=== PATIENT | female | born 1950 | race Caucasian/White ===

== ENCOUNTER 2016-04-22 10:08 | Outpatient (CLI) | payer MEDICARE, OTHER | END 2016-04-22 10:09 | disposition home or self-care (01) | DX: G47.33 Obstructive sleep apnea (adult) (pediatric) (principal); G47.23 Circadian rhythm sleep disorder, irregular sleep wake type | CPT/HCPCS: 99214; G0463 ==

== ENCOUNTER 2016-07-05 08:35 | Outpatient (CLI) | payer MEDICARE, OTHER | END 2016-07-05 08:36 | disposition home or self-care (01) | DX: G47.33 Obstructive sleep apnea (adult) (pediatric) (principal); G47.00 Insomnia, unspecified | CPT/HCPCS: 99214; G0463 ==

== ENCOUNTER 2016-09-06 09:46 | Outpatient (CLI) | payer MEDICARE, OTHER | END 2016-09-06 09:47 | disposition home or self-care (01) | LOC: SC 09:46 | PROVIDERS: ATTEND Nurse Practitioner Family | DX: G47.33 Obstructive sleep apnea (adult) (pediatric) (principal); G47.23 Circadian rhythm sleep disorder, irregular sleep wake type | CPT/HCPCS: 99214; G0463; 99212 ==

== ENCOUNTER 2016-11-08 09:58 | Outpatient (CLI) | payer MEDICARE, OTHER | END 2016-11-08 09:59 | disposition home or self-care (01) | LOC: SC 09:58 | PROVIDERS: ATTEND Nurse Practitioner Family | DX: G47.33 Obstructive sleep apnea (adult) (pediatric) (principal); G47.20 Circadian rhythm sleep disorder, unspecified type | CPT/HCPCS: 99214; G0463; 99212 ==

== ENCOUNTER 2017-05-30 10:48 | Outpatient (CLI) | payer MEDICARE, OTHER | END 2017-05-30 10:49 | disposition home or self-care (01) | LOC: SC 10:48 | PROVIDERS: ATTEND Nurse Practitioner Family | DX: G47.33 Obstructive sleep apnea (adult) (pediatric) (principal); R07.9 Chest pain, unspecified; G47.23 Circadian rhythm sleep disorder, irregular sleep wake type | CPT/HCPCS: 99214; G0463; 99212 ==

== ENCOUNTER 2017-08-23 08:35 | Outpatient (CLI) | payer MEDICARE, OTHER | END 2017-08-23 08:36 | disposition home or self-care (01) | LOC: SC 08:35 | PROVIDERS: ATTEND Nurse Practitioner Family | DX: G47.33 Obstructive sleep apnea (adult) (pediatric) (principal); G47.23 Circadian rhythm sleep disorder, irregular sleep wake type | CPT/HCPCS: 99214; G0463; 99212 ==

== ENCOUNTER 2017-11-15 09:33 | Outpatient (CLI) | payer MEDICARE, OTHER | END 2017-11-15 09:34 | disposition home or self-care (01) | LOC: SC 09:33 | PROVIDERS: ATTEND Nurse Practitioner Family | DX: G47.33 Obstructive sleep apnea (adult) (pediatric) (principal); G47.00 Insomnia, unspecified | CPT/HCPCS: 99214; G0463; 99212 ==

== ENCOUNTER 2018-03-13 08:16 | Outpatient (CLI) | payer MEDICARE, OTHER | END 2018-03-13 08:17 | disposition home or self-care (01) | LOC: SC 08:16 | PROVIDERS: ATTEND Nurse Practitioner Family | DX: G47.33 Obstructive sleep apnea (adult) (pediatric) (principal) | CPT/HCPCS: 99214; G0463; 99212 ==

== ENCOUNTER 2018-05-08 15:52 | Outpatient (CLI) | payer MEDICARE, OTHER | END 2018-05-08 15:53 | disposition home or self-care (01) | LOC: SC 15:52 | PROVIDERS: ATTEND Nurse Practitioner Family | DX: G47.33 Obstructive sleep apnea (adult) (pediatric) (principal) | CPT/HCPCS: 99214; G0463; 99212 ==

== ENCOUNTER 2018-05-27 15:38 | Outpatient (CLI) | payer MEDICARE, OTHER | END 2018-05-27 15:39 | disposition short-term general hospital (02) | LOC: EMS 15:38 | PROVIDERS: ATTEND Surgery | DX: R42 Dizziness and giddiness (principal); R11.0 Nausea; R53.1 Weakness; R47.81 Slurred speech; R25.2 Cramp and spasm; R47.01 Aphasia; M79.642 Pain in left hand; R53.83 Other fatigue | CPT/HCPCS: A0425; A0427; A0888 ==

== ENCOUNTER 2019-01-09 08:56 | Day surgery (SDC) | payer MEDICARE, OTHER ==
[~2019-01-09 08:56] MED LIST: CEFAZOLIN SODIUM IN 0.9 % NACL 2 GM/100 ML BAG IV ONE
[2019-01-09] MEDS ORDERED: MIDAZOLAM 2 MG/2 ML VIAL IVP ONE (08:57)
[2019-01-09] MEDS ORDERED: fentaNYL 100 MCG/2 ML VIAL IVP ONE (08:57)
[2019-01-09] MEDS ORDERED: PROPOFOL 200 MG/20 ML VIAL IVP ONE (08:57)
[2019-01-09] MEDS ORDERED: LACTATED RINGERS 1,000 ML IV ONE (09:00)
--- NOTE | 2019-01-09 11:08 | ANESTHESIA ---
Pre-Anesthesia VS, & Labs - Diagnosis right mid back painful mass - Procedure excision of right lateral mid back lipoma Vital Signs: Temp Pulse Resp BP Pulse Ox 36 C L 61 12 148/76 H 97 01/09/19 09:00 01/09/19 09:00 01/09/19 09:00 01/09/19 09:00 01/09/19 09:00 Height 4 ft 11 in Weight (kg) 101.3 kg Body Mass Index 51.7 - NPO >8 hours - Is Patient ?: No Home Medications and Allergies Home Medications: Ambulatory Orders Acyclovir [Zovirax] 1 applic TP ONCE PRN 11/17/18 Aspirin [Aspirin EC] 81 mg PO DAILY 11/17/18 Atorvastatin Calcium 40 mg PO BID 11/17/18 Benfotiamine B1 150 mg PO DAILY 11/17/18 Clobetasol Propionate/Emoll [Clobetasol Emollient 0.05% Crm] 1 applic TP ONCE PRN 11/17/18 Desonide 1 applic TP ONCE PRN 11/17/18 Escitalopram [Lexapro] 10 mg PO DAILY 11/17/18 Fluticasone [Flonase] 1 sprays LUCIA DAILY PRN 11/17/18 Hydrochlorothiazide 12.5 mg PO DAILY 11/17/18 Loratadine [Claritin] 10 mg PO DAILY PRN 11/17/18 Losartan Potassium 25 mg PO BID 11/17/18 Lysine [l-Lysine] 500 mg PO ONCE PRN 11/17/18 Magnesium Sulfate 100 mg PO QPM 11/17/18 Metronidazole [Metrocream] 1 applic TP ONCE PRN 11/17/18 Olopatadine HCl [Patanol] 5 ml OP ONCE PRN 11/17/18 Ondansetron HCl [Zofran] 4 mg PO ONCE PRN 11/17/18 Oxybutynin [Ditropan] 5 mg PO QPM 11/17/18 Pimecrolimus [Elidel] 1 applic TP ONCE PRN 11/17/18 Temazepam [Restoril] 7.5 mg PO ONCE PRN 11/17/18 Mupirocin 1 gm TP PRN PRN 01/09/19 Nitrofurantoin [Macrobid] 100 mg PO BID 01/09/19 metroNIDAZOLE [Metronidazole] 250 mg PO BID 01/09/19 Allopurinol 100 mg PO DAILY 12/18/13 Cholecalciferol (Vitamin D3) [Vitamin D] 1,000 unit PO DAILY 12/18/13 Indomethacin 25 mg PO DAILY PRN 12/18/13 Levothyroxine [Synthroid] 75 mcg PO DAILY 12/18/13 Diazepam [Valium] 10 mg ORAL DAILY PRN 12/25/13 Acyclovir [Zovirax] 1 applic TP ONCE PRN 11/17/18 Aspirin [Aspirin EC] 81 mg PO DAILY 11/17/18 Atorvastatin Calcium 40 mg PO BID 11/17/18 Benfotiamine B1 150 mg PO DAILY 11/17/18 Clobetasol Propionate/Emoll [Clobetasol Emollient 0.05% Crm] 1 applic TP ONCE PRN 11/17/18 Desonide 1 applic TP ONCE PRN 11/17/18 Escitalopram [Lexapro] 10 mg PO DAILY 11/17/18 Fluticasone [Flonase] 1 sprays LUCIA DAILY PRN 11/17/18 Hydrochlorothiazide 12.5 mg PO DAILY 11/17/18 Loratadine [Claritin] 10 mg PO DAILY PRN 11/17/18 Losartan Potassium 25 mg PO BID 11/17/18 Lysine [l-Lysine] 500 mg PO ONCE PRN 11/17/18 Magnesium Sulfate 100 mg PO QPM 11/17/18 Metronidazole [Metrocream] 1 applic TP ONCE PRN 11/17/18 Olopatadine HCl [Patanol] 5 ml OP ONCE PRN 11/17/18 Ondansetron HCl [Zofran] 4 mg PO ONCE PRN 11/17/18 Oxybutynin [Ditropan] 5 mg PO QPM 11/17/18 Pimecrolimus [Elidel] 1 applic TP ONCE PRN 11/17/18 Temazepam [Restoril] 7.5 mg PO ONCE PRN 11/17/18 Mupirocin 1 gm TP PRN PRN 01/09/19 Nitrofurantoin [Macrobid] 100 mg PO BID 01/09/19 metroNIDAZOLE [Metronidazole] 250 mg PO BID 01/09/19 Allergies/Adverse Reactions: Allergies Allergy/AdvReac Type Severity Reaction Status Date / Time pseudoephedrine Allergy Severe Anaphylaxis Verified 12/25/13 09:01 codeine Allergy Intermediate Nausea Verified 10/14/14 09:01 tetracycline [Tetracycline] Allergy Intermediate Hives Verified 12/25/13 09:01 ciprofloxacin [From Cipro] AdvReac due to Verified 11/17/18 13:39 achilles tendon levofloxacin [From Levaquin] AdvReac due to Verified 11/17/18 13:39 achilles tendon lisinopril AdvReac Respiratory Verified 01/09/19 11:08 Anes History & Medical History - Anesthetic History Anesthesia Complications: reports: No previous complications - Medical History Cardiovascular: reports: Congestive heart failure, Hypertension, High cholesterol, Arrhythmia, Other (pacemaker) Pulmonary: reports: Sleep apnea, CPAP use (uses every night) Gastrointestinal: reports: Colon polyps, Chronic constipation Urinary: reports: Incontinence, Chronic bladder infection, Frequency, Kidney stones Neuro: reports: TIA, Other (Left carotid artery disease) Musculoskeletal: reports: Osteoarthritis, Fibromyalgia, Osteoporosis, Gout, Fatigue, Chronic back pain, Other Endocrine/Autoimmune: reports: None, HyPOthyroidism Blood Disorders: reports: None Skin: reports: Eczema Smoking Status: Never smoker Psychosocial: reports: Anxiety - Surgical History General: Colonoscopy Eyes Ears Nose Throat (EENT): Cataracts, Other Cardiothoracic: Pacemaker Urologic: Bladder surgery Gynecologic: 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, Oophrectomy, Breast reduction, Other Orthopedic: Carpal Tunnel surgery, Spine surgery Exam General: Alert, Oriented x3, Cooperative, No acute distress Dental: WNL Mouth Openin Fingerbreadth Neck Mobility: Normal Mallampati classification: II Thyromental Distance: greater than 6 cm Respiratory: Lungs clear, Normal breath sounds, No respiratory distress, No accessory muscle use Cardiovascular: Regular rate, Normal S1, Normal S2, No murmurs Mental/Cognitive Status: Alert/Oriented X3, Normal for patient Plan Anesthesia Type: MAC Consent for Procedure(s) Verified and Reviewed: Yes Code Status: Attempt Resuscitation ASA classification: 3-Severe systemic disease Is this case an emergency?: No
[2019-01-09] MEDS ORDERED: BUPIVACAINE 0.5%-EPI 1:200000 PF 30 ML VIAL ONE (11:13)
[2019-01-09] MEDS ORDERED: LIDOCAINE-MPF 1% 30 ML VIAL ONE (11:14)
[2019-01-09] MEDS ORDERED: HYDROmorphone 0.5 MG/0.5 ML SYRINGE IVP PRN (12:51)
[2019-01-09] MEDS ORDERED: ONDANSETRON 4 MG/2 ML VIAL IVP PRN (12:51)
[2019-01-09] MEDS ORDERED: oxyCODONE 5 MG TABLET PO PRN (12:51)
--- NOTE | 2019-01-09 13:12 | OPERATIVE REPORT ---
Operative Report - General Planned Procedure: Excision of large, painful, recurrent, soft tissue mass Pre-Op Diagnosis: Recurrent soft tissue mass Procedure Performed: Wide local excision of large, painful, recurrent, soft tissue mass Post Op Diagnosis: Same - Procedure Note Primary Surgeon: Galdino Anesthesia Provider: YOLI Arzola; YOLI Mortensen Anesthesia Technique: Local, MAC Pathology: Mass marked for orientation and submitted to pathology Estimated Blood Loss (mL): 50 Urine Output (mL): 75 Findings: 10 x 15 cm mass in the right mid back Complications: None apparent - Other Other Information/Narrative: After obtaining informed consent, the patient is brought to the operating room and the placed in the left lateral decubitus position on the operating table. Following sedation with monitored anesthesia care, appropriate padding of all bony prominences, and placement of appropriate monitors, the right flank was prepped and draped in the standard surgical fashion. A timeout was held per scope protocol. All elements of the surgical safety checklist were followed before, during, and after the procedure. Following infiltration with local anesthetic to create a field block, the existing incision which was long healed, was reopened and carried through the skin and subcutaneous tissue. The mass was then sharply dissected off of the skin and underlying muscle. The neurovascular pedicle was present in the center of the mass posteriorly and extended into the muscle. This was divided with cautery. The mass was marked for orientation and passed from the table. The wound was then checked for hemostasis and irrigated with warm saline solution. It was closed in layers with Vicryl and Nylon suture and a dry dressing applied. All sponge, needle, and instrument counts were correct at the conclusion of the case. The patient was allowed to awaken from anesthesia without difficulty and taken to the postanesthesia care unit in good condition.
[2019-01-09 13:35] VITALS: BP 130/62
== END 2019-01-09 08:57 | disposition home or self-care (01) ==
LOC: SDS 08:56
PROVIDERS: ATTEND Surgery
PROC: 0KBF0ZZ Excision of Right Trunk Muscle, Open Approach (ICD-10-PCS; principal; 2019-01-09 10:45)
DX: D17.1 Benign lipomatous neoplasm of skin and subcutaneous tissue of trunk (principal); I11.0 Hypertensive heart disease with heart failure; I50.9 Heart failure, unspecified; G47.30 Sleep apnea, unspecified; Z95.0 Presence of cardiac pacemaker; Z86.73 Personal history of transient ischemic attack (TIA), and cerebral infarction without residual deficits; Z79.899 Other long term (current) drug therapy; Z79.82 Long term (current) use of aspirin
CPT/HCPCS: 21933; J0690; J7120

== ENCOUNTER 2019-05-04 13:29 | Outpatient (CLI) | payer MEDICARE, OTHER | END 2019-05-04 13:30 | disposition critical access hospital (66) | LOC: EMS 13:29 | PROVIDERS: ATTEND Surgery | DX: R51 Headache (principal); R42 Dizziness and giddiness; R11.2 Nausea with vomiting, unspecified | CPT/HCPCS: A0425; A0429 ==

== ENCOUNTER 2019-05-04 13:46 | Observation (INO) | payer MEDICARE, OTHER ==
[2019-05-04] MEDS ORDERED: PROCHLORPERAZINE 10 MG/2 ML VIAL IVP STA (17:45)
[2019-05-04] MEDS ORDERED: diphenhydrAMINE INJ 50 MG/ML VIAL IVP STA (17:45)
[2019-05-04] MEDS ORDERED: SODIUM CHLORIDE 0.9% 1,000 ML IV ONE (17:45)
--- NOTE | 2019-05-04 17:50 | ED Physician Documentation ---
History of Present Illness - Stated complaint Stated Complaint: SHAIKH - Chief complaint Chief Complaint: Neuro - History obtained from History obtained from: Patient, Family, EMS - History of Present Illness Pain level max: >10 Pain level now: >10 Radiates to: none Improved by: nothing Worsened by: nothing Associated symptoms: visual changes, weakness - Additonal information Additional information: 69-year-old female with history of TIA, CHF, hypertension, pacemaker in place, who presented to the emergency department for evaluation because of 2 weeks of intermittent left-sided headache. She reported that around 1:30 PM, patient developed right visual changes with right arm motor weakness. EMS was called and the patient was brought in for further evaluation. Patient denies any fever, chills, neck pain, neck stiffness. Patient has a history of TIA withKnown carotid stenosis of greater than 50%. Patient has a history of migraine headaches as well but her current headache feels very different from her migraine headaches. She denies any vomiting. She has nausea.She has a decrease in appetite. Review of Systems Constitutional: reports: Myalgias. denies: Fever, Chills Eyes: reports: Loss of vision (intermittent). denies: Discharge, Irritation Ears: denies: Loss of hearing, Ear pain Nose: denies: Rhinorrhea / runny nose Throat: denies: Dental pain / toothache Cardiac: denies: Chest pain / pressure Respiratory: denies: Dyspnea, Cough GI: denies: Abdominal Pain Skin: denies: Rash Musculoskeletal: reports: Back pain (chronic). denies: Neck pain, Extremity pain, Joint pain, Extremity swelling Neurologic: reports: Focal weakness (right arm weakness), Difficulty speaking, Confused, Headache, Other (slurred speech) PD PAST MEDICAL HISTORY - Past Medical History Past Medical History: Yes Cardiovascular: Congestive heart failure, Hypertension, High cholesterol, Arrhythmia, Other Respiratory: Sleep apnea, CPAP use Neuro: TIA, Other Endocrine/Autoimmune: None, HyPOthyroidism GI: Colon polyps, Chronic constipation : Incontinence, Chronic bladder infection, Frequency, Kidney stones HEENT: Chronic vision loss, Chronic sinusitis Psych: Anxiety, Claustrophobia Musculoskeletal: Osteoarthritis, Fibromyalgia, Osteoporosis, Gout, Fatigue, Chronic back pain, Other Derm: Eczema - Past Surgical History Past Surgical History: Yes General: Colonoscopy Ortho: Carpal Tunnel surgery, 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: 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, Oophrectomy, Breast reduction, Other Cardiovascular: Pacemaker HEENT: Cataracts, Other - Present Medications Home Medications: Ambulatory Orders Medication Instructions Recorded Confirmed Cholecalciferol (Vitamin D3) 1,000 unit PO DAILY 12/18/13 11/17/18 [Vitamin D] Indomethacin 25 mg PO DAILY PRN 12/18/13 11/17/18 Levothyroxine [Synthroid] 75 mcg PO DAILY 12/18/13 01/09/19 allopurinoL [Allopurinol] 100 mg PO DAILY 12/18/13 11/17/18 Diazepam [Valium] 10 mg ORAL DAILY PRN 12/25/13 11/17/18 Aspirin [Aspirin EC] 81 mg PO DAILY 11/17/18 11/17/18 Atorvastatin Calcium 40 mg PO BID 11/17/18 11/17/18 Benfotiamine B1 150 mg PO DAILY 11/17/18 01/09/19 Clobetasol Propionate/Emoll 1 applic TP ONCE PRN 11/17/18 11/17/18 [Clobetasol Emollient 0.05% Crm] Desonide 1 applic TP ONCE PRN 11/17/18 11/17/18 Escitalopram [Lexapro] 10 mg PO DAILY 11/17/18 11/17/18 Fluticasone [Flonase] 1 sprays LUCIA DAILY PRN 11/17/18 11/17/18 Hydrochlorothiazide 12.5 mg PO DAILY 11/17/18 11/17/18 Loratadine [Claritin] 10 mg PO DAILY PRN 11/17/18 11/17/18 Losartan Potassium 25 mg PO BID 11/17/18 11/17/18 Lysine [l-Lysine] 500 mg PO ONCE PRN 11/17/18 11/17/18 Magnesium Sulfate 100 mg PO QPM 11/17/18 11/17/18 Metronidazole [Metrocream] 1 applic TP ONCE PRN 11/17/18 11/17/18 Olopatadine HCl [Patanol] 5 ml OP ONCE PRN 11/17/18 11/17/18 Oxybutynin [Ditropan] 5 mg PO QPM 11/17/18 11/17/18 Pimecrolimus [Elidel] 1 applic TP ONCE PRN 11/17/18 11/17/18 Temazepam [Restoril] 7.5 mg PO ONCE PRN 11/17/18 11/17/18 Mupirocin 1 gm TP PRN PRN 01/09/19 01/09/19 Ondansetron Odt [Zofran] 4 mg TL Q6H PRN #10 tablet 01/09/19 Oxycodone HCl/Acetaminophen 1 each PO Q6HR PRN #20 tablet 01/09/19 [Oxycodone-Acetaminophen 5-325] - Allergies Allergies/Adverse Reactions: Allergies Allergy/AdvReac Type Severity Reaction Status Date / Time pseudoephedrine Allergy Severe Anaphylaxis Verified 05/04/19 13:53 codeine Allergy Intermediate Nausea Verified 05/04/19 13:53 tetracycline [Tetracycline] Allergy Intermediate Hives Verified 05/04/19 13:53 ciprofloxacin [From Cipro] AdvReac due to Verified 05/04/19 13:53 achilles tendon levofloxacin [From Levaquin] AdvReac due to Verified 05/04/19 13:53 achilles tendon lisinopril AdvReac Respiratory Verified 05/04/19 13:53 - Social History Does the pt smoke?: No Smoking Status: Never smoker Does the pt drink ETOH?: No Does the pt have substance abuse?: No - Immunizations Immunizations are current?: Yes PD ED PE NORMAL - Vitals Vital signs reviewed: No - General General: Alert and oriented X 3 - HEENT HEENT: Atraumatic, PERRL, EOMI, Moist mucous membranes - Neck Neck: Supple, no meningeal sign - Cardiac Cardiac: Other (pacemaker noted on the left) - Respiratory Respiratory: No respiratory distress - Abdomen Abdomen: Normal bowel sounds - Derm Derm: Normal color - Extremities Extremities: No deformity - Neuro Neuro: Alert and oriented X 3, 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, No motor deficit, No sensory deficit, Normal speech Eye Opening: Spontaneous Motor: Obeys Commands Verbal: Oriented GCS Score: 15 Results - Vitals Vitals: Vital Signs - 24 hr 05/04/19 05/04/19 05/04/19 13:53 18:10 19:20 Temperature 36.5 C 37.0 C Heart Rate 60 100 73 Respiratory 14 16 23 Rate Blood Pressure 165/83 H 179/71 H 122/70 O2 Saturation 100 100 94 05/04/19 05/04/19 05/04/19 19:50 20:07 20:46 Temperature Heart Rate 62 59 L 60 Respiratory 16 16 16 Rate Blood Pressure 219/105 H 198/76 H 172/57 H O2 Saturation 99 100 99 05/04/19 05/04/19 20:55 21:22 Temperature 36.6 C Heart Rate 65 60 Respiratory 19 13 Rate Blood Pressure 172/57 H 191/85 H O2 Saturation 99 100 Oxygen O2 Source Nasal cannula Oxygen Flow Rate 3 - Labs Labs: Laboratory Tests 05/04/19 05/04/19 05/04/19 17:55 19:22 19:22 WBC 7.5 RBC 4.33 Hgb 12.8 Hct 40.0 MCV 92.4 MCH 29.6 MCHC 32.0 RDW 12.9 Plt Count 288 MPV 8.9 Neut # (Auto) 3.8 Lymph # (Auto) 2.6 [place] # (Auto) 0.5 Eos # (Auto) 0.6 Baso # (Auto) 0.0 Absolute Nucleated RBC 0.00 Nucleated RBC % 0.0 ESR Whole Blood INR 1.0 Sodium 140 Potassium 3.8 Chloride 105 Carbon Dioxide 27 Anion Gap 8.0 BUN 20 Creatinine 0.6 Estimated GFR (MDRD) 99 Glucose 98 Calcium 9.2 Total Bilirubin 0.6 AST 17 ALT 17 Alkaline Phosphatase 95 Troponin I High Sens B-Natriuretic Peptide Total Protein 6.7 Albumin 3.7 Globulin 3.0 Albumin/Globulin Ratio 1.2 05/04/19 05/04/19 05/04/19 19:22 19:22 19:22 WBC RBC Hgb Hct MCV MCH MCHC RDW Plt Count MPV Neut # (Auto) Lymph # (Auto) [place] # (Auto) Eos # (Auto) Baso # (Auto) Absolute Nucleated RBC Nucleated RBC % ESR 37 H Whole Blood INR Sodium Potassium Chloride Carbon Dioxide Anion Gap BUN Creatinine Estimated GFR (MDRD) Glucose Calcium Total Bilirubin AST ALT Alkaline Phosphatase Troponin I High Sens 3.4 B-Natriuretic Peptide 42 Total Protein Albumin Globulin Albumin/Globulin Ratio PD MEDICAL DECISION MAKING - ED course Complexity details: re-evaluated patient, d/w patient, d/w family ED course: EKG performed in 2036 shows atrial paced rhythm with a rate of 62, Borderline prolonged IL interval, normal QRS, normal QTC, nonspecific ST changes noted, poor R wave progression, no ST elevation or depression. 69-year-old female with history of hypertension, pacemaker in place, hyperlipidemia, history of carotid stenosis (diagnosed at [facility]) who presented to the emergency department for evaluation because of headache,Right eye vision changes, right arm weakness that has since resolved. Patient was noted to be hypertensive. Patient admitted that she has not been compliant with her blood pressure medication.She was treated with IV fluids, Benadryl Compazine initially for headache and given her history of migraine headaches, the headache improved but did not completely go away. Her headache started returning and she was noted to be severely hypertensive. Patient was given IV hydralazine with improvement of her headache.The patient remained hemodynamically stable. CT scan of the head did not show acute intracranial hemorrhage or other acute abnormality.EKG did not show ischemic changes. Troponin was negative. While in the emergency department, patient started hyperventilating and complaining of shortness of breath. Lungs were clear to auscultation. Oxygen saturation was within normal limits. She appeared to be somewhat anxious and tearful but was not in respiratory distress. She was given 0.5 mg of IV Ativan with improvement. With her neurological symptoms and her uncontrolled hypertension, Symptoms could be due to TIA or malignant hypertension. I have discussed the case with hospitalist, Dr. Richard. She has accepted patient for admission and further management. Departure - Departure Disposition: 65 Psych Hosp/Unit DC/Xfer Clinical Impression: Headache, Hypertension, Transient ischemic attack (TIA) Condition: Stable
--- NOTE | 2019-05-04 18:57 | CT Report ---
Reason: headache Procedure Date: 05/04/2019 Accession Number: [id number] / [id number] Procedure: CT - HEAD WO CPT Code: Final Report FULL RESULT: EXAM: CT HEAD EXAM DATE: 05/04/2019 06:20 PM. CLINICAL HISTORY: Headache. COMPARISON: None. TECHNIQUE: Multiaxial CT images were obtained from the foramen magnum to the vertex. Reformats: Sagittal and coronal. IV contrast: None. In accordance with CT protocol optimization, one or more of the following dose reduction techniques were utilized for this exam: automated exposure control, adjustment of mA and/or KV based on patient size, or use of iterative reconstructive technique. FINDINGS: Parenchyma: No intraparenchymal hemorrhage. No evidence of mass, midline shift, or CT findings of infarction. Jones-white differentiation is distinct. Extraaxial Spaces: Normal for age. No subdural or epidural collections identified. Ventricles: Normal in size and position. Sinuses and Orbits: Imaged paranasal sinuses, orbits, and mastoids show no significant abnormality. Bones: No evidence of fracture or calvarial defect. Other: None. IMPRESSION: No significant intracranial abnormality. RADIA
[2019-05-04 19:28] LABS: BASOPHILS % (AUTO) 0.3 %; EOSINOPHILS # (AUTO) 0.6 10^3/uL (0.0-0.7); EOSINOPHILS % (AUTO) 7.5 %; HGB - HEMOGLOBIN 12.8 g/dL (12.0-16.0); LYMPHOCYTES # (AUTO) 2.6 10^3/uL (1.5-3.5); LYMPHOCYTES % (AUTO) 34.1 %; MEAN CORPUSCULAR HEMOGLOBIN 29.6 pg (27.0-31.0); MEAN CORPUSCULAR VOLUME 92.4 fL (81.0-99.0); MEAN PLATELET VOLUME 8.9 fL (7.9-10.8); MONOCYTES # (AUTO) 0.5 10^3/uL (0.0-1.0); MONOCYTES % (AUTO) 6.9 %; NEUTROPHILS # (AUTO) 3.8 10^3/uL (1.5-6.6); NEUTROPHILS % (AUTO) 50.8 %; PLT - PLATELET COUNT 288 10^3/uL (130-450); RED BLOOD COUNT 4.33 10^6/uL (4.20-5.40); RED CELL DISTRIBUTION WIDTH 12.9 % (12.0-15.0); WHITE BLOOD COUNT 7.5 x10^3/uL (4.8-10.8)
[2019-05-04 19:41] LABS: ALBUMIN 3.7 g/dL (3.2-5.5); ALBUMIN/GLOBULIN RATIO 1.2 (1.0-2.2); BILIRUBIN,TOTAL 0.6 mg/dL (0.2-1.0); CALCIUM 9.2 mg/dL (8.5-10.3); CREATININE 0.6 mg/dL (0.4-1.0); TOTAL PROTEIN 6.7 g/dL (6.7-8.2)
[2019-05-04] MEDS ORDERED: ASPIRIN CHEW 81 MG TABLET PO STA (20:11)
[2019-05-04] MEDS ORDERED: hydrALAZINE INJ 20 MG/ML VIAL IVP STA (20:11)
[2019-05-04] MEDS ORDERED: MORPHINE 2 MG/ML CARPUJECT IVP STA (20:12)
[2019-05-04] MEDS ORDERED: LORazepam 2 MG/ML VIAL IVP STA (20:59)
[2019-05-04] MEDS ORDERED: FUROSEMIDE 40 MG/4 ML VIAL IVP STA (21:02)
[2019-05-04] MEDS ORDERED: ONDANSETRON ODT 4 MG TABLET TL PRN (21:11)
[2019-05-04] MEDS ORDERED: oxyCODONE 5 MG TABLET PO PRN (21:11)
[2019-05-04] MEDS ORDERED: ACETAMINOPHEN 325 MG TABLET PO PRN (21:11)
[2019-05-04] MEDS ORDERED: ONDANSETRON 4 MG/2 ML VIAL IVP PRN (21:11)
[2019-05-04] MEDS ORDERED: SODIUM CHLORIDE FLUSH 0.9% 10 ML SYRINGE IVP PRN (21:11)
[2019-05-04] MEDS ORDERED: ATORVASTATIN 40 MG TABLET PO SCH (21:14)
--- NOTE | 2019-05-04 21:15 | XRAY Report ---
Reason: weakness Procedure Date: 05/04/2019 Accession Number: [id number] / [id number] Procedure: XR - Chest 1 View X-Ray CPT Code: 50381 Final Report FULL RESULT: EXAM: CHEST RADIOGRAPHY EXAM DATE: 05/04/2019 08:50 PM. CLINICAL HISTORY: Weakness. COMPARISON: 06/21/2011 3:45 PM. TECHNIQUE: 1 view. FINDINGS: Lungs/Pleura: No focal opacities evident. No pleural effusion. No pneumothorax. Mediastinum: Within exam limitations, the cardiomediastinal contour is normal. Other: Pacemaker. IMPRESSION: No acute findings. RADIA
--- NOTE | 2019-05-04 21:20 | HISTORY & PHYSICAL EXAMINATION ---
Chief Complaint - Chief Complaint Chief Complaint: right arm weak, right eye vision dark, anxiety attack History of Present Illness - Admitted From Admitted From:: Home/ER - History Obtained From Records Reviewed: Aviva Martinez History obtained from: Dr. Olivia and patient Exam Limitations: none - History of Present Illness HPI Comment/Other: 69-year-old female whose risk factors for stroke include high blood pressure, hyperlipidemia, noncompliance with medication and already has a previous history of a TIA that comes in with sudden loss of vision in the right eye, and right arm weakness. Prior to this episode today, she has a had a 2-week history of intermittent left-sided headache. She has been noncompliant with her medications because she does not like taking blood pressure medications. She also feels like she just needs to lose weight. If she can lose the weight then she can get off a lot of her medications. Between 2018 and now she has lost 56 pounds. She denies fever, chills, use of recreational substances. She does have a history of migraine headaches but feels this is different. There is no aura. Then she developed the right arm weakness and right eye visual changes around 1:30 today. She has a previous admission for TIA to [facility] with the same loss of right eye vision, and at that time, a CT angiogram in May 2018 showed suspected occlusion of the distal right M1 segment just distal to the first M2 segmental branch takeoff. There is reconstitution of flow within the proximally occluded M2 segment branches via collaterals with slightly diminished perfusion suspected in the right hemisphere. She has greater than 50% stenosis in the right carotid terminus. High-grade stenosis at the origin of the hypoplastic right A1 segment anterior to the artery she is patent. No other hemodynamically significant stenosis in the great vessels of the neck. She was seen in the emergency room by Dr. Olivia. Temperature was 36.5, heart rate 60, respirations 14, blood pressure 165/83 and she was 100% saturated on room air. During her stay in the emergency room she was evaluated with a CT of the head. It was negative. Labs were normal. They were discussing discharge to home when the patient had a sudden onset of shortness of breath, hyperventilation that was felt to be compatible with a panic attack. She feels like she cannot go home. She also had a rise in blood pressure to 219/105. She was given an aspirin, Benadryl, Lasix, hydralazine, morphine and Lorazepam. She is now placed in observation for possible TIA. History - Past Medical History Cardiovascular: reports: Congestive heart failure (with left venticular hypertrophy seen on echo 2003. No reduced EF per her knowledge. Had diastolic HF 2011), Hypertension, High cholesterol, [facility]rhythmia [facility] with pacer placed. ?afib), Other (chronic venous insufficiency) Respiratory: reports: Sleep apnea (since 2007 diagnosis), CPAP use Neuro: reports: TIA (2012 and May 2018 with subsequent pacer placed), Migraines, Peripheral neuropathy (from spine 2012), Fainting (2007, 2012, 2014 while on a plane) Endocrine/Autoimmune: reports: HyPOthyroidism GI: reports: Colon polyps, Chronic constipation, Hemorrhoids : reports: Incontinence, Chronic bladder infection, Frequency, Kidney stones, Other HEENT: reports: Chronic vision loss, Chronic sinusitis, Other (vitrectomy left eye 2016 and right eye 2018) Psych: reports: Anxiety, Panic attacks, Claustrophobia Musculoskeletal: reports: Osteoarthritis (with knee injections in past 2015), Fibromyalgia (diagnosed 2000), Osteoporosis (2009), Gout (2007), Fatigue, Chronic back pain (of c spine with spinal stenosis diagnosed 2000 and moderate to severe by 2010), Other Derm: reports: Eczema, Other (lipomatous masses w Gen Surg consult starting July 2009) MRSA Hx?: No - Past Surgical History General: reports: Colonoscopy (09/15/10, 05/28/14), Other (adhesiolysis 1979, 1981, 1983, 1986) Ortho: reports: Carpal Tunnel surgery (right, 2012), Spine surgery (2011 la minectomy of L spine), Other (ankle implants 1994 and 1995 with removal of both 1999; gastrocnemius slide on both calves 2000) /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 father never known. 3 sisters and 2 brothers. One sister as complications of fibromyalgia and chronic pain, one sister w cancer, 2 brothers w DM, CAD/CABG and stroke, HTN, kidney disease, Hep C also present in siblings. 1 daughter and 1 son. Daughter w MS/lupus, chronic pain syndrome. Son w heart disease Living arrangement: At home Living Situation: With spouse/s.o. Social History Notes: She is from [place]. a man who is in the [employer], he was career. [place], left to do other duty stations. When he retired the came back to [facility]. She never smoked. Very rarely drank. No history of recreational substance abuse. They live in their own home in [place]. - Substance History Use: Uses substance without health or social issues: NONE - POLST Patient has POLST: No POLST Status: Full Code Meds/Allgy - Home Medications Home Medications: Ambulatory Orders Medication Instructions Recorded Confirmed Cholecalciferol (Vitamin D3) 1,000 unit PO DAILY 12/18/13 05/04/19 [Vitamin D] Indomethacin 25 mg PO DAILY PRN 12/18/13 05/04/19 Levothyroxine [Synthroid] 75 mcg PO DAILY 12/18/13 05/04/19 allopurinoL [Allopurinol] 100 mg PO DAILY 12/18/13 05/04/19 Diazepam [Valium] 10 mg ORAL DAILY PRN 12/25/13 05/04/19 Aspirin [Aspirin EC] 81 mg PO DAILY 11/17/18 05/04/19 Atorvastatin Calcium 40 mg PO BID 11/17/18 05/04/19 Benfotiamine B1 150 mg PO DAILY 11/17/18 05/04/19 Clobetasol Propionate/Emoll 1 applic TP ONCE PRN 11/17/18 05/04/19 [Clobetasol Emollient 0.05% Crm] Desonide 1 applic TP ONCE PRN 11/17/18 05/04/19 Escitalopram [Lexapro] 10 mg PO DAILY 11/17/18 05/04/19 Fluticasone [Flonase] 1 sprays LUCIA DAILY PRN 11/17/18 05/04/19 Hydrochlorothiazide 12.5 mg PO DAILY 11/17/18 05/04/19 Loratadine [Claritin] 10 mg PO DAILY PRN 11/17/18 05/04/19 Losartan Potassium 25 mg PO BID 11/17/18 05/04/19 Lysine [l-Lysine] 500 mg PO ONCE PRN 11/17/18 11/17/18 Magnesium Sulfate 100 mg PO QPM 11/17/18 05/04/19 Metronidazole [Metrocream] 1 applic TP ONCE PRN 11/17/18 05/04/19 Olopatadine HCl [Patanol] 5 ml OP ONCE PRN 11/17/18 05/04/19 Oxybutynin [Ditropan] 5 mg PO QPM 11/17/18 05/04/19 Pimecrolimus [Elidel] 1 applic TP ONCE PRN 11/17/18 05/04/19 Temazepam [Restoril] 7.5 mg PO ONCE PRN 11/17/18 05/04/19 Mupirocin 1 gm TP PRN PRN 01/09/19 05/04/19 Ondansetron Odt [Zofran] 4 mg TL Q6H PRN #10 tablet 01/09/19 05/04/19 Oxycodone HCl/Acetaminophen 1 each PO Q6HR PRN #20 tablet 01/09/19 05/04/19 [Oxycodone-Acetaminophen 5-325] - Allergies Allergies/Adverse Reactions: Allergies Allergy/AdvReac Type Severity Reaction Status Date / Time pseudoephedrine Allergy Severe Anaphylaxis Verified 05/04/19 13:53 codeine Allergy Intermediate Nausea Verified 05/04/19 13:53 tetracycline [Tetracycline] Allergy Intermediate Hives Verified 05/04/19 13:53 ciprofloxacin [From Cipro] AdvReac due to Verified 05/04/19 13:53 achilles tendon levofloxacin [From Levaquin] AdvReac due to Verified 05/04/19 13:53 achilles tendon lisinopril AdvReac Respiratory Verified 05/04/19 13:53 Review of Systems - Constitutional Constitutional: reports: Fatigue, Weight loss (Delivered 56 pound weight loss since 2018 and she tries to diet to control her medical problems) - Eyes Eyes: reports: Blurred vision, Vision loss, Other (all of these chronic but sudden loss in right eye today) - Ears, Nose & Throat Ears, Nose & Throat: reports: Hearing loss, Tinnitus, Nosebleeds, Nasal congestion, Hoarseness, Other (all of these chronic) - Cardiovascular Cariovascular: reports: Palpitations, Chest pain (rest or exertion), Edema (with chronic varicose veins), Other (chronic complaints) - Respiratory Respiratory: reports: Snoring, Apnea. denies: Cough, Sputum production, Wheezing - Gastrointestinal Gastrointestinal: reports: Constipation, Diarrhea, Nausea, Reflux/heartburn, Other (chronic problems) - Genitourinary Genitourinary: reports: Incontinence - Musculoskeletal Musculoskeletal: reports: Muscle pain, Back pain, Muscle aches, Gout, Joint pain - Neurological Neurological: reports: Numbness (chronic from old spinal stenosis) - Psychiatric Psychiatric: reports: Depression, Anxiety, Other (insomnia). denies: Suicidal, Delusions, Hallucinations - Hematologic/Lymphatic Hematologic/Lymphatic: reports: Bruising Prior Level of Functionality: Lives with chronic daily pain in her neck, back, legs. Feet are very numb. But she is still able to dress herself, feed herself. Does occasional light housework. Has been takes care of bills and finances. Does not use any durable medical equipment. Exam - Vital Signs Reviewed Vital Signs: Yes Vital Signs: Vital Signs x48h Temp Pulse Resp BP Pulse Ox 05/04/19 20:55 65 19 172/57 H 99 05/04/19 20:46 60 16 172/57 H 99 05/04/19 20:07 59 L 16 198/76 H 100 05/04/19 19:50 62 16 219/105 H 99 05/04/19 19:20 73 23 122/70 94 05/04/19 18:10 37.0 C 100 16 179/71 H 100 05/04/19 13:53 36.5 C 60 14 165/83 H 100 - Physical Exam General Appearance: positive: No acute distress, Alert, Other (4 foot 11 inch female who is 102.5 kg. is at the bedside. She is hungry and eating a sandwich and some Jell-O) Eyes Bilateral: positive: PERRL, EOMI ENT: positive: Pharynx nml Neck: positive: No JVD. negative: Stiff neck, Carotid bruit Respiratory: positive: Chest non-tender. negative: Wheezes, Rales, Rhonchi Cardiovascular: positive: Regular rate & rhythm, Systolic murmur. negative: Gallop/S4, Friction rub Peripheral Pulses: positive: 1+ Abdomen: positive: Non-tender, No organomegaly, Nml bowel sounds, No distention Skin: positive: Warm, Dry Extremities: positive: Non-tender, Full ROM, Pedal edema (Mild chronic venous stasis changes) Neurologic/Psychiatric: positive: Oriented x3, CN's nml (2-12), Motor nml. negative: Weakness, Facial droop, Slurred/abnml speech Reflexes: Bicep (R): 1+, Bicep (L): 1+, Knee (R): 1+, Knee (L): 1+ Babinski Reflex: Right: Down, Left: Down Conclusion/Plan - Problem List (1) Transient ischemic attack (TIA) Conclusion/Plan: In a patient is already had 2 previous TIAs. She has documented abnormal cer ebrovascular anatomy. She initially explains that she has carotid stenosis and I have carefully gone over anatomy to demonstrate that her vascular defect is actually in the distal arterial branches and not in the carotids. I have carefully explained to her that we can reduce risk of stroke but we cannot make her risk 0%. While a I laud her attempt at controlling blood pressure and cholesterol through diet and slowly successful weight loss, she also needs to take her blood pressure pills which she has been avoiding. Plan: Observation status Resume losartan in the morning and allow permissive hypertension up to 180 systolic Aspirin 325 in the emergency room, 81 mg tomorrow Atorvastatin 80 mg tonight and may need 80 mg for a few more weeks and then she can go back on her usual 40 mg Cannot do MRI because of pacer CT angiogram of head and neck Echocardiogram Get old records from [facility] to see exactly why she got a pacemaker (2) Hypertension Conclusion/Plan: As stated above. Allow permissive hypertension up to 180 systolic for the first 24 to 48 hours. Gradually reduce blood pressure over the next 3 days. Will resume losartan in the morning. Qualifiers: Hypertension type: essential hypertension Qualified Code(s): I10 - Essential (primary) hypertension (3) Noncompliance with medication regimen Conclusion/Plan: After explaining anatomy, what leads to increased risk of stroke, she is amenable to resuming her medications. (4) Hyperlipidemia Conclusion/Plan: check fasting lipids in am. Qualifiers: Hyperlipidemia type: pure hypercholesterolemia Qualified Code(s): E78.00 - Pure hypercholesterolemia, unspecified; E78.0 - Pure hypercholesterolemia (5) Hypothyroid Conclusion/Plan: check tsh in am. Qualifiers: Hypothyroidism type: postoperative Qualified Code(s): E89.0 - Postprocedural hypothyroidism - Lab Results Lab results reviewed: Yes Fish Bones: 05/04/19 19:22 05/04/19 19:22 Other Lab Results: Troponin 3.4 and BNP 42. - Diagnostic Imaging Results Diagnostic Imaging Results: positive: Final report reviewed - EKG Results EKG Interpreted Independently: No EKG Comparison: Unchanged from prior EKG Core Measures - Anticipated LOS I expect patient to be DC'd or transferred within 96 hours.: Yes - DVT/VTE - Prophylaxis VTE/DVT Device ordered at admit?: Yes
[2019-05-04] MEDS ORDERED: IOVERSOL 320 100 ML VIAL IVP ONE ×2 (21:23→22:26)
--- NOTE | 2019-05-04 22:45 | CT Report ---
Reason: right arm weak Procedure Date: 05/04/2019 Accession Number: [id number] / [id number] Procedure: CT - ANGIO NECK W CPT Code: Final Report FULL RESULT: EXAM: CT ANGIOGRAM NECK EXAM DATE: 05/04/2019 10:01 PM. CLINICAL HISTORY: Right arm weak. COMPARISON: HEAD W/O 05/04/2019 6:18 PM HEAD ANGIO 05/04/2019 10:01 PM. TECHNIQUE: Routine axial helical imaging was performed from the skull base through the aortic arch. Reconstructions: Routine multiplanar 3D MIP reconstructions. IV Contrast: OPTIRAY 320. Evaluation of arterial stenosis is based on a NASCET method of measurement. In accordance with CT protocol optimization, one or more of the following dose reduction techniques were utilized for this exam: automated exposure control, adjustment of mA and/or KV based on patient size, or use of iterative reconstructive technique. FINDINGS: Aortic arch, origins of the great vessels, brachiocephalic in both subclavian arteries are patent. Right Carotid: Common carotid is patent to the bifurcation. Mild calcification of the carotid bulb without stenosis. Left Carotid: Common carotid is patent at the bifurcation. Moderate calcification of the carotid bulb with roughly 50% stenosis at the left ICA origin. Vertebrals: Vertebral arteries are patent in the neck. Limited evaluation of the V1 and proximal V2 segments by beam hardening artifact from the patient's shoulders, cardiac pacemaker, contrast reflux from the left arm injection and multiple disk prostheses in the lower cervical spine. Intracranial Circulation: See CT angiogram head. Other: Prosthetic disks at C5-C6 and C6-C7. Cardiac pacemaker. Lung apices appear clear. IMPRESSION: 1. Mild calcification of the right carotid bulb without stenosis. 2. Roughly 50% stenosis left ICA origin. 3.Vertebral arteries are patent in the neck. Limited evaluation of the V1 and proximal V2 segments by beam hardening artifact from the patient's shoulders, cardiac pacemaker, contrast reflux from the left arm injection and multiple disk prostheses in the lower cervical spine. RADIA
--- NOTE | 2019-05-04 22:54 | CT Report ---
Reason: right arm weak Procedure Date: 05/04/2019 Accession Number: [id number] / [id number] Procedure: CT - ANGIO HEAD W/WO CPT Code: Final Report FULL RESULT: EXAM: CT ANGIOGRAM HEAD. CT SCAN OF THE HEAD WITHOUT AND WITH CONTRAST. EXAM DATE: 05/04/2019 10:01 PM CLINICAL HISTORY: Right arm weak. Headache. COMPARISON: CT HEAD W/O 05/04/2019 6:18 PM. TECHNIQUE: - CT Scan Head: Using a multidetector scanner, axial images were acquired from the foramen magnum to the skull vertex prior to and following contrast administration. - CT Angiogram: Using a multidetector scanner, high-resolution axial images were acquired from the skull base through vertex following rapid infusion of intravenous contrast. Reformats: Multiplanar MIP reformats were reconstructed. NASCET criteria used for stenosis measurement. IV Contrast: OPTIRAY 320-80 mL. In accordance with CT protocol optimization, one or more of the following dose reduction techniques were utilized for this exam: automated exposure control, adjustment of mA and/or KV based on patient size, or use of iterative reconstructive technique. FINDINGS: NON-CONTRAST HEAD: Parenchyma: No intraparenchymal hemorrhage. No evidence of mass, midline shift, or CT findings of infarction. Jones-white differentiation is distinct. Extraaxial Spaces: Normal for age. No subdural or epidural collections identified. Ventricles: Normal in size and position. Sinuses and orbits: Imaged paranasal sinuses, orbits, and mastoids show no significant abnormality. Bones: No evidence of fracture or calvarial defect. Other: None. POST-CONTRAST HEAD: No abnormal enhancement. CT ANGIOGRAM HEAD: Anterior circulation: The petrous, cavernous, and supraclinoid segments of both internal carotid arteries are patent. There is atherosclerotic calcification in the carotid siphons bilaterally. No evidence of significant stenosis. The middle cerebral and anterior regarding distributions are patent bilaterally. No evidence of large vessel occlusion. Mild irregularity in the M1 segment of the left MCA suggests mild atherosclerotic disease. There is no significant stenosis. The A1 segment of the right KRYSTAL is moderately hypoplastic. A normal variant. A patent anterior communicating artery is visualized. Posterior circulation: Both vertebral arteries join to form the basilar artery. The distal vertebral and basilar arteries are patent and normal in caliber. The posterior cerebral arteries and remainder of the posterior circulation are patent and appear unremarkable. No aneurysm or AVM is identified. Dural venous sinuses are patent. IMPRESSION: CT Head: No acute intracranial abnormality. Specifically, no evidence of acute infarct, hemorrhage, or mass lesion. No abnormal enhancement. CTA Head: 1. No evidence of large vessel occlusion. 2. There is mild atherosclerotic disease involving bilateral carotid siphons and the left MCA M1 segment. However, there is no evidence of significant stenosis. 3. No aneurysm is identified. 4. Dural venous sinuses are patent. RADIA
[2019-05-04] MEDS ORDERED: diazePAM 5 MG TABLET PO PRN (23:51)
[2019-05-05] MEDS: SODIUM CHLORIDE FLUSH 0.9% 10 ML SYRINGE IVP SCH ×2 (01:16→08:45)
[2019-05-05] MEDS: oxyCODONE 5 MG TABLET PO PRN ×2 (05:42→10:54)
[2019-05-05 06:36] LABS: CHOL/HDL RATIO 5.6 (<4.4); CHOLESTEROL 217 mg/dL; HDL CHOLESTEROL 39 mg/dL; LDL CHOLESTEROL,CALCULATED 148 mg/dL; LDL/HDL RATIO 3.8 (<4.4); VLDL CHOLESTEROL 30 mg/dL
[2019-05-05] MEDS ORDERED: LOSARTAN 50 MG TABLET PO SCH (09:00)
[2019-05-05] MEDS ORDERED: ASPIRIN CHEW 81 MG TABLET PO SCH (09:00)
--- NOTE | 2019-05-05 12:59 | Discharge Plan ---
Discharge Plan Problem Reviewed?: Yes Disposition: Home, Self Care Condition: Good Prescriptions: Clopidogrel [Plavix] 75 mg PO DAILY #21 tablet Oxybutynin [Oxytrol For Women] 1 each TD Q3D #30 patch.td.4 Rosuvastatin Calcium [Crestor] 40 mg PO DAILY #30 tablet Diet: Cardiac Activity Restrictions: Activity as Tolerated Shower Restrictions: No Driving Restrictions: No Weight Bearing: Full Weight Instruction Topics: Clopidogrel Bisulfate Oral tablet Health Concerns: TIA (Transient ischemic attack) Uncontrolled blood pressure Hyperlipidemia Plan of Treatment: Continue your exercise program and stay active each day Continue the high dose statin, Atorvastain 80 mg, Aspirin 81 mg, and Plavix 75 mg (to be taken only for the next 21 days) Continue to use your CPAP See your PCP within the next 1 week, who may request a neurology consult Care Goals: Prevent a recurrence of this event Prevent hospital stays and ED visits Be well in order to travel to [place] in May Assessment: You were admitted to the hospital for a TIA work up, which is the final concluding diagnosis since undergoing the brain imaging and an echocardiogram with preliminary results of negative bubble study (no PFO), no thrombus, and nothing alarming found on brain imaging. Along with the baby aspirin (81 mg), you will need to take Plavix for the next 21 days, then stop. You will need to see your PCP within one week. If the vision loss persists, you may benefit from seeing an budget manager who specializes in neurologic disorders. You are medically stable and higher dose of statin is crucial in further protection from any more TIA events. Your lipid panel will need to be followed. Your thyroid level was normal, and your fasting glucose was also not concerning. No Smoking: If you smoke, Please STOP! Call for help. Follow-up with: MORIS LANGLEY [Primary Care Provider] -
--- NOTE | 2019-05-05 13:20 | DISCHARGE SUMMARY ---
Discharge Summary Admit Date: 05/04/19 Discharge Date: 05/05/19 Discharging Provider: TIFFANY Woo Primary Care Provider: Guillermina Calderón Code Status: Attempt Resuscitation Condition at Discharge: Good Discharge Disposition: 01 Home, Self Care - DIAGNOSES Admission Diagnoses: TIA (transient ischemic attack) Hypertension Noncompliance Pure hypercholesterolemia, unspecified Postprocedural hypothyroidism Discharge Diagnoses with Status of Each Condition: TIA (transient ischemic attack)-Recurrent, final diagnosis for this hospital stay, stable, slight vision loss residual Hypertension-Chronic, stable, patient encouraged to resume her previously prescribed medications Noncompliance-Chronic, patient has the support of her , agreed to be more compliant Pure hypercholesterolemia, unspecified- total cholesterol, LDL elevated, increased home statin to full dose Postprocedural hypothyroidism-No changes in usual Synthroid dose, stable Carotid artery stenosis-Known history, no acute changes noted on imaging Left ventricular hypertrophy-Chronic, patient encouraged to resume all home meds to prevent worsening of LVH Diastolic dysfunction-Chronic, stable Sick sinus syndrome-Chronic, pacemaker was tracked with rates in the 60's on telemetry, stable Pacemaker-Chronic, stable EUNICE on CPAP-Chronic, stable Depression-Chronic, stable Urinary incontinence-Chronic, sent a patch to try rather than pill form for less chances of dry mouth, stable Fibromyalgia-Chronic, stable Gout-Chronic, stable Spinal stenosis-Chronic, stable Arthritis-Chronic, stable Osteoporosis-Chronic, stable Eczema-Chronic, stable Migraine-Chronic, stable - HPI History of Present Illness: HPI per Dr. Richard: 69-year-old female whose risk factors for stroke include high blood pressure, hyperlipidemia, noncompliance with medication and already has a previous history of a TIA that comes in with sudden loss of vision in the right eye, and right arm weakness. Prior to this episode today, she has a had a 2-week history of intermittent left-sided headache. She has been noncompliant with her medications because she does not like taking blood pressure medications. She also feels like she just needs to lose weight. If she can lose the weight then she can get off a lot of her medications. Between 2018 and now she has lost 56 pounds. She denies fever, chills, use of recreational substances. She does have a history of migraine headaches but feels this is different. There is no aura. Then she developed the right arm weakness and right eye visual changes around 1:30 today. She has a previous admission for TIA to [facility] with the same loss of right eye vision, and at that time, a CT angiogram in May 2018 showed suspected occlusion of the distal right M1 segment just distal to the first M2 segmental branch takeoff. There is reconstitution of flow within the proximally occluded M2 segment branches via collaterals with slightly diminished perfusion suspected in the right hemisphere. She has greater than 50% stenosis in the right carotid terminus. High-grade stenosis at the origin of the hypoplastic right A1 segment anterior to the artery she is patent. No other hemodynamically significant stenosis in the great vessels of the neck. She was seen in the emergency room by Dr. Olivia. Temperature was 36.5, heart rate 60, respirations 14, blood pressure 165/83 and she was 100% saturated on room air. During her stay in the emergency room she was evaluated with a CT of the head. It was negative. Labs were normal. They were discussing discharge to home when the patient had a sudden onset of shortness of breath, hypervent ilation that was felt to be compatible with a panic attack. She feels like she cannot go home. She also had a rise in blood pressure to 219/105. She was given an aspirin, Benadryl, Lasix, hydralazine, morphine and Lorazepam. She is now placed in observation for possible TIA. - HOSPITAL COURSE Hospital Course: The patient was admitted to the hospital for a TIA work up, which is the final concluding diagnosis since undergoing the brain imaging and an echocardiogram with results of negative bubble study (no PFO), no thrombus, and nothing al arming found on brain imaging. Along with the baby aspirin (81 mg), she was prescribed Plavix for the next 21 days, then stop. The patient was advised to see her PCP within one week. If the vision loss persists, you may benefit from seeing an lines tender who specializes in neurologic disorders. The patient was medically stable and told about the higher dose of statin being crucial in further protection from any more TIA events. The patient's lipid panel will need to be followed. Labs showed a normal thyroid level, and a fasting glucose which were normal. - ALLERGIES Allergies/Adverse Reactions: Allergies Allergy/AdvReac Type Severity Reaction Status Date / Time pseudoephedrine Allergy Severe Anaphylaxis Verified 05/04/19 13:53 codeine Allergy Intermediate Nausea Verified 05/04/19 13:53 tetracycline [Tetracycline] Allergy Intermediate Hives Verified 05/04/19 13:53 duloxetine Allergy Rash Verified 05/05/19 07:35 ciprofloxacin [From Cipro] AdvReac due to Verified 05/04/19 13:53 achilles tendon levofloxacin [From Levaquin] AdvReac due to Verified 05/04/19 13:53 achilles tendon lisinopril AdvReac Respiratory Verified 05/04/19 13:53 - MEDICATIONS Home Medications: Ambulatory Orders Medication Instructions Recorded Confirmed Cholecalciferol (Vitamin D3) 1,000 unit PO DAILY 12/18/13 05/04/19 [Vitamin D3] Indomethacin 25 mg PO PRN PRN 12/18/13 05/05/19 allopurinoL [Allopurinol] 100 mg PO DAILY 12/18/13 05/05/19 Diazepam [Valium] 10 mg ORAL DAILY PRN 12/25/13 05/04/19 Aspirin [Aspirin EC] 81 mg PO DAILY 11/17/18 05/05/19 Benfotiamine B1 150 mg PO DAILY 11/17/18 05/04/19 Clobetasol Propionate/Emoll 1 applic TP ONCE PRN 11/17/18 05/04/19 [Clobetasol Emollient 0.05% Crm] Desonide 1 applic TP ONCE PRN 11/17/18 05/04/19 Escitalopram [Lexapro] 10 mg PO DAILY 11/17/18 05/04/19 Fluticasone [Flonase] 1 sprays LUCIA DAILY PRN 11/17/18 05/04/19 Hydrochlorothiazide 12.5 mg PO DAILY 11/17/18 05/04/19 Loratadine [Claritin] 10 mg PO DAILY PRN 11/17/18 05/04/19 Losartan Potassium 25 mg PO BID 11/17/18 05/04/19 Lysine [l-Lysine] 500 mg PO ONCE PRN 11/17/18 11/17/18 Magnesium Sulfate 100 mg PO QPM 11/17/18 05/04/19 Olopatadine HCl [Patanol] 5 ml OP PRN PRN 11/17/18 05/05/19 Pimecrolimus [Elidel] 1 applic TP PRN PRN 11/17/18 05/05/19 Temazepam [Restoril] 7.5 mg PO PRN PRN 11/17/18 05/05/19 Ondansetron Odt [Zofran Odt] 4 mg TL Q6H PRN #10 tablet 01/09/19 05/04/19 Clopidogrel [Plavix] 75 mg PO DAILY #21 tablet 05/05/19 Levothyroxine Sodium 50 mcg PO DAILY 05/05/19 05/05/19 Metoprolol Succinate [Toprol Xl] 25 mg PO DAILY 05/05/19 05/05/19 Oxybutynin [Oxytrol For Women] 1 each TD Q3D #30 patch.td.4 05/05/19 Rosuvastatin Calcium [Crestor] 40 mg PO DAILY #30 tablet 05/05/19 - PHYSICAL EXAM AT DISCHARGE General Appearance: positive: No acute distress, Alert Eyes Bilateral: positive: Normal inspection, PERRL ENT: positive: Pharynx nml, No signs of dehydration Neck: positive: Nml inspection, Thyroid nml, No JVD Respiratory: positive: Chest non-tender, No respiratory distress, Breath sounds nml Cardiovascular: positive: Regular rate & rhythm, No gallop, Systolic murmur Peripheral Pulses: positive: 2+ Abdomen: positive: Non-tender, Nml bowel sounds Back: positive: Nml inspection Skin: positive: Color nml, No rash, Warm, Dry Extremities: positive: Non-tender, Full ROM, Pedal edema (chronic BLE generalized edema) Neurologic/Psychiatric: positive: Oriented x3, CN's nml (2-12), Motor nml, Sensation nml, Mood/affect nml Reflexes: Bicep (R): 3+, Bicep (L): 3+, Ankle (R): 3+, Ankle (L): 3+ - LABS Result Diagrams: 05/05/19 14:50 05/04/19 19:22 - DIAGNOSTIC IMAGING Diagnostic Imaging Results: Final report reviewed Diagnostic Imaging Results Comments: EXAM: CT HEAD 05/04/2019 06:20 PM IMPRESSION: No significant intracranial abnormality. EXAM: CHEST RADIOGRAPHY 05/04/2019 08:50 PM IMPRESSION: No acute findings. EXAM: CT ANGIOGRAM NECK 05/04/2019 10:01 PM. IMPRESSION: 1. Mild calcification of the right carotid bulb without stenosis. 2. Roughly 50% stenosis left ICA origin. 3.Vertebral arteries are patent in the neck. Limited evaluation of the V1 and proximal V2 segments by beam hardening artifact from the patient's shoulders, cardiac pacemaker, contrast reflux from the left arm injection and multiple disk prostheses in the lower cervical spine. EXAM: CT ANGIOGRAM HEAD CT SCAN OF THE HEAD WITHOUT AND WITH CONTRAST 05/04/2019 10:01 PM IMPRESSION: CT Head: No acute intracranial abnormality. Specifically, no evidence of acute infarct, hemorrhage, or mass lesion. No abnormal enhancement. CTA Head: 1. No evidence of large vessel occlusion. 2. There is mild atherosclerotic disease involving bilateral carotid siphons and the left MCA M1 segment. However, there is no evidence of significant stenosis. 3. No aneurysm is identified. 4. Dural venous sinuses are patent. - FOLLOW UP Follow Up: Continue your exercise program and stay active each day Continue the high dose statin, Atorvastain 80 mg, Aspirin 81 mg, and Plavix 75 mg (to be taken only for the next 21 days) Continue to use your CPAP See your PCP within the next 1 week, who may request a neurology consult - TIME SPENT Time Spent in Discharge (Minutes): 55
[2019-05-05] MEDS ORDERED: CLOPIDOGREL 300 MG TABLET PO ONE (13:35)
[2019-05-05] MEDS ORDERED: LORazepam 1 MG TABLET PO PRN (14:39)
[2019-05-05 14:55] LABS: BASOPHILS # (AUTO) 0.1 10^3/uL (0.0-0.1); BASOPHILS % (AUTO) 0.4 %; EOSINOPHILS # (AUTO) 0.5 10^3/uL (0.0-0.7); EOSINOPHILS % (AUTO) 3.7 %; HGB - HEMOGLOBIN 13.6 g/dL (12.0-16.0); LYMPHOCYTES # (AUTO) 1.8 10^3/uL (1.5-3.5); LYMPHOCYTES % (AUTO) 13.9 %; MEAN CORPUSCULAR HGB CONC 32.5 g/dL (32.0-36.0); MEAN CORPUSCULAR VOLUME 92.3 fL (81.0-99.0); MONOCYTES # (AUTO) 0.4 10^3/uL (0.0-1.0); MONOCYTES % (AUTO) 3.3 %; NEUTROPHILS # (AUTO) 10.1 10^3/uL (1.5-6.6); NEUTROPHILS % (AUTO) 78.1 %; PLT - PLATELET COUNT 288 10^3/uL (130-450); RED BLOOD COUNT 4.54 10^6/uL (4.20-5.40); RED CELL DISTRIBUTION WIDTH 13.2 % (12.0-15.0)
[2019-05-05 15:20] LABS: HB2 TOTAL 13.7 g/dL; HEMOGLOBIN A1C 0.48 g/dL; HEMOGLOBIN A1C % 5.4 % (4.6-6.2)
[2019-05-05 15:32] LABS: BILIRUBIN,URINE NEGATIVE (NEGATIVE); GLUCOSE, URINE (UA) NEGATIVE (NEGATIVE); KETONES,URINE (UA) NEGATIVE (NEGATIVE); LEUKOCYTE ESTERASE, URINE NEGATIVE (NEGATIVE); NITRITE,URINE NEGATIVE (NEGATIVE); OCCULT BLOOD,URINE NEGATIVE (NEGATIVE); PROTEIN,URINE NEGATIVE (NEGATIVE); UROBILINOGEN,URINE 0.2 (NORMAL) E.U./dL (NORMAL)
[2019-05-05 15:50] LABS: BACTERIA,URINE None Seen /HPF (None Seen); CLARITY,URINE CLEAR (CLEAR); RBC,URINE 0-5 /HPF (0-5); SQUAMOUS EPITHELIAL CELL,UR RARE Squamous (<= Few)
[2019-05-05 16:35] VITALS: BP 148/53
[2019-05-05] MEDS ORDERED: ESCITALOPRAM 10 MG TABLET PO SCH (21:00)
[2019-05-06] MEDS ORDERED: ASPIRIN EC 81 MG TABLET PO SCH (09:00)
== END 2019-05-05 16:45 | disposition home or self-care (01) ==
LOC: EDUNIT# → ED 13:46 → MS2 21:11
PROVIDERS: ADMIT Specialist; ATTEND Specialist
DX: G45.9 Transient cerebral ischemic attack, unspecified (principal); H54.7 Unspecified visual loss; I11.0 Hypertensive heart disease with heart failure; I50.30 Unspecified diastolic (congestive) heart failure; I65.22 Occlusion and stenosis of left carotid artery; E78.5 Hyperlipidemia, unspecified; G43.909 Migraine, unspecified, not intractable, without status migrainosus; I49.5 Sick sinus syndrome; F41.0 Panic disorder [episodic paroxysmal anxiety]; G47.33 Obstructive sleep apnea (adult) (pediatric); E89.0 Postprocedural hypothyroidism; F32.9 Major depressive disorder, single episode, unspecified; F40.240 Claustrophobia; G89.29 Other chronic pain; M48.02 Spinal stenosis, cervical region; M79.7 Fibromyalgia; M10.9 Gout, unspecified; M19.90 Unspecified osteoarthritis, unspecified site; M81.0 Age-related osteoporosis without current pathological fracture; J32.9 Chronic sinusitis, unspecified; N30.20 Other chronic cystitis without hematuria; R32 Unspecified urinary incontinence; R35.0 Frequency of micturition; K59.09 Other constipation; L30.9 Dermatitis, unspecified; T46.5X6A Underdosing of other antihypertensive drugs, initial encounter; Y92.009 Unspecified place in unspecified non-institutional (private) residence as the place of occurrence of the external cause; Z79.1 Long term (current) use of non-steroidal anti-inflammatories (NSAID); Z79.891 Long term (current) use of opiate analgesic; Z79.82 Long term (current) use of aspirin; Z95.0 Presence of cardiac pacemaker; Z86.73 Personal history of transient ischemic attack (TIA), and cerebral infarction without residual deficits
CPT/HCPCS: 36415; 70496; 70498; 71045; 80053; 80061; 81001; 83036; 83880; 84443; 84484; 85025; 85610; 85651; 93005; 93306; 96374; 96375; 99284; 99285; A9270; G0378; J1200; J2060; Q9967; 70450; 80048; 83721; 87086

== ENCOUNTER 2019-06-18 13:42 | Outpatient (CLI) | payer MEDICARE, OTHER ==
--- NOTE | 2019-06-18 13:26 | SLEEP CARE CONSULTATION ---
Information from patient questionnaire entered by Annie Paris. I have reviewed and concur with the information entered by Annie Paris. This document represents the service I personally performed and the decisions made by me, Aida Yao, RN, MSN, SERVICE CENTER TECHNICIAN. History of Present Illness Previous diagnosis: Mild, Obstructive Sleep Apnea-Hypopnea Syndrome AHI: 10.7 Reason for follow up: annual Equipment type: CPAP Mask style: Nasal Backup mask available: Yes Last cushion change: 2 weeks ago Prior sleep studies: Yes CPAP Compliance Data - Data Reviewed with Patient Average duration of nightly device use: 8H 16M Compliance rate %: 91.1 Current pressure setting (cmH2O): 6-10 Humidity settin Average residual AHI: 0.7 (mean 6.8cm and 90% 8.3 cm pressure) Average large leak: 38S Subjective Patient concerns: reports: epistaxis (scant - recent that she feels is due to her allergies ). denies: aerophagia, mask discomfort, air blowing in eyes, mask leak noise, condensation in mask/hose, nasal congestion, dry mouth, nose, throat Observed to snore while using device: No Current pressure setting perceived as: comfortable On therapy, patient: reports: sleeping better, awakening more refreshed, being more awake and alert during the day, more rested overall, other. denies: drowsiness while driving Initial [place] Sleepiness Scale score: 20 Current [place] Sleepiness Scale score: 11 Allergies and Home Medications Home medication list reviewed: No (started her blood pressure meds ) Review of Systems Review of systems same as previous: No (Earlier this year seen in ER, 230/ 110 BP - had a 2 TIAs =taking BP meds ) Physical Exam Height: 4 ft 11 in Weight: 223 lb 3.2 oz Body Mass Index: 45.1 BMI Classification: Morbidly Obese Impression and Plan 1. Obstructive Sleep Apnea-Hypopnea Syndrome, mild, with good treatment compliance and good apnea control. On CPAP therapy, the patient has better sleep quality and is more rested overall. The patient is pleased with benefit of treatment. To reduce incidence of epitaxis, she is to increase her humidity setting. She can add heated hose if condensation. She already uses saline nasal spray daily to wash off nasal allergens. Since she is losing about 4 pounds a month, I explained how significant weight loss can affect her apnea risk and CPAP pressure. Symptoms to report discussed. Patient's apnea severity and rationale for treatment to reduce apnea, improve sleep quality and reduce cardiovascular and cerebrovascular events was reviewed. I also reviewed the benefit of consistent device use of CPAP for hypertension, cerebrovascular disease . * Continue CPAP pressure at 6-10 cmH2O * Adjust humidity and heated hose * Notify me if snoring with mask or feeling that the pressure is too much or too little * Continue to lose weight * Call this office if any problems using CPAP * Return for follow up in 1 year, or sooner if concerns arise. Visit Type: Telehealth Phone (To minimized the risk of COVID 19 exposure, the patient consents to this visit and billing of insurance) Location of Provider: Office Patient agrees and consents to this telehealth visit type: Yes Time Spent with Patient (minutes): 11 Provider Statement: I spent 100% of the Telehealth Phone Call with the patient with greater than 50% spent counseling the patient and coordination of care.
== END 2019-06-18 13:43 | disposition home or self-care (01) ==
LOC: SC 13:42
PROVIDERS: ATTEND Nurse Practitioner Family
DX: G47.33 Obstructive sleep apnea (adult) (pediatric) (principal); E66.01 Morbid (severe) obesity due to excess calories; Z68.42 Body mass index [BMI] 45.0-49.9, adult

== ENCOUNTER 2020-04-17 10:35 | Observation (INO) | payer MEDICARE, OTHER ==
[2020-04-17] MEDS ORDERED: ASPIRIN 325 MG TABLET PO STA (11:03)
[2020-04-17] MEDS ORDERED: NITROGLYCERIN SL 0.4 MG TABLET SL STA (11:05)
[2020-04-17 11:17] LABS: BASOPHILS % (AUTO) 0.3 %; EOSINOPHILS # (AUTO) 0.4 10^3/uL (0.0-0.7); EOSINOPHILS % (AUTO) 5.6 %; HGB - HEMOGLOBIN 13.2 g/dL (12.0-16.0); LYMPHOCYTES # (AUTO) 2.5 10^3/uL (1.5-3.5); LYMPHOCYTES % (AUTO) 32.8 %; MEAN CORPUSCULAR HEMOGLOBIN 29.7 pg (27.0-31.0); MEAN CORPUSCULAR VOLUME 92.8 fL (81.0-99.0); MONOCYTES # (AUTO) 0.6 10^3/uL (0.0-1.0); MONOCYTES % (AUTO) 7.2 %; NEUTROPHILS # (AUTO) 4.1 10^3/uL (1.5-6.6); NEUTROPHILS % (AUTO) 53.7 %; PLT - PLATELET COUNT 305 10^3/uL (130-450); RED BLOOD COUNT 4.45 10^6/uL (4.20-5.40); RED CELL DISTRIBUTION WIDTH 13.1 % (12.0-15.0); WHITE BLOOD COUNT 7.6 x10^3/uL (4.8-10.8)
--- NOTE | 2020-04-17 11:17 | XRAY Report ---
PROCEDURE: Chest 1 View X-Ray INDICATIONS: Chest pain TECHNIQUE: One view of the chest was acquired. COMPARISON: 05/04/2019 FINDINGS: Surgical changes and devices: Fusion hardware in lower cervical spine is again seen. Left chest wall pacemaker position is unchanged. Lungs and pleura: No pleural effusions or pneumothorax. Lungs are clear. Mediastinum: Mediastinal contours appear normal. Heart size is enlarged. Bones and chest wall: No suspicious bony lesions. Overlying soft tissues appear unremarkable. IMPRESSION: No acute cardiopulmonary pathology. Reviewed by: Ash Zaidi MD on 04/17/2020 10:15 AM [facility] Approved by: Ash Zaidi MD on 04/17/2020 10:15 AM [facility] Station ID: [id number]
[2020-04-17 11:37] LABS: ALBUMIN/GLOBULIN RATIO 1.2 (1.0-2.2); BILIRUBIN,TOTAL 0.6 mg/dL (0.2-1.0); CALCIUM 9.6 mg/dL (8.5-10.3); CREATININE 0.6 mg/dL (0.4-1.0); TOTAL PROTEIN 7.3 g/dL (6.7-8.2)
[2020-04-17] MEDS ORDERED: LOSARTAN 50 MG TABLET PO STA (11:41)
[2020-04-17] MEDS ORDERED: hydroCHLOROthiazide 25 MG TABLET PO STA (11:41)
[2020-04-17] MEDS ORDERED: LABETALOL 20 MG/4 ML SYRINGE IVP STA (13:31)
--- NOTE | 2020-04-17 13:51 | ED Physician Documentation ---
History of Present Illness - Stated complaint Stated Complaint: SOA/DIZZINESS - Chief complaint Chief Complaint: General - History obtained from History obtained from: Patient - Additonal information Additional information: 70-year-old woman with past medical history of TIA, CHF, paroxysmal A. fib, symptomatic bradycardia status post pacemaker (incident analyst Dr. Gonsalez, [place]) presents with substernal 8 out of 10 chest pain, nonradiating, gradual in onset this morning associated with dyspnea, worse with exertion. also with dizziness and nausea. Patient states for the past 3 to 4 weeks she has been not feeling herself and this has been progressively worsening over the past 2 to 3 days however she waited until this morning to come in due to chest pain. Denies fevers, back pain, hemoptysis, cough, vomiting, abdominal pain, leg swelling. Review of Systems Ten Systems: 10 systems reviewed and negative Constitutional: denies: Fever, Chills Cardiac: reports: Chest pain / pressure Respiratory: reports: Dyspnea. denies: Cough GI: reports: Nausea. denies: Abdominal Pain, Vomiting, Diarrhea Musculoskeletal: denies: Extremity swelling Neurologic: reports: Generalized weakness PD PAST MEDICAL HISTORY - Past Medical History Past Medical History: Yes Cardiovascular: Congestive heart failure, Hypertension, High cholesterol, Arrhythmia, Other Respiratory: Sleep apnea, CPAP use Neuro: TIA, Migraines, Peripheral neuropathy, Fainting Endocrine/Autoimmune: HyPOthyroidism GI: Colon polyps, Chronic constipation, Hemorrhoids : Incontinence, Chronic bladder infection, Frequency, Kidney stones, Other HEENT: Chronic vision loss, Chronic sinusitis, Other Psych: Anxiety, Panic attacks, Claustrophobia Musculoskeletal: Osteoarthritis, Fibromyalgia, Osteoporosis, Gout, Fatigue, Chronic back pain, Other Derm: Eczema, Other - Past Surgical History Past Surgical History: Yes General: Colonoscopy, Other Ortho: Carpal Tunnel surgery, Spine surgery, Other /MORTGAGE LOAN [employer]OSER: 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, Oophrectomy, Breast reduction, Other Cardiovascular: Pacemaker HEENT: Cataracts, Myringotomy (tubes), Other - Present Medications Home Medications: Ambulatory Orders Medication Instructions Recorded Confirmed Cholecalciferol (Vitamin D3) 1,000 unit PO DAILY 12/18/13 05/04/19 [Vitamin D3] Indomethacin 25 mg PO PRN PRN 12/18/13 05/05/19 allopurinoL [Allopurinol] 100 mg PO DAILY 12/18/13 05/05/19 Diazepam [Valium] 10 mg ORAL DAILY PRN 12/25/13 05/04/19 Aspirin [Aspirin EC] 81 mg PO DAILY 11/17/18 05/05/19 Benfotiamine B1 150 mg PO DAILY 11/17/18 05/04/19 Clobetasol Propionate/Emoll 1 applic TP ONCE PRN 11/17/18 05/04/19 [Clobetasol Emollient 0.05% Crm] Desonide 1 applic TP ONCE PRN 11/17/18 05/04/19 Escitalopram [Lexapro] 10 mg PO DAILY 11/17/18 05/04/19 Fluticasone [Flonase] 1 sprays LUCIA DAILY PRN 11/17/18 05/04/19 Hydrochlorothiazide 12.5 mg PO DAILY 11/17/18 05/04/19 Loratadine [Claritin] 10 mg PO DAILY PRN 11/17/18 05/04/19 Losartan Potassium 25 mg PO BID 11/17/18 05/04/19 Lysine [l-Lysine] 500 mg PO ONCE PRN 11/17/18 11/17/18 Magnesium Sulfate 100 mg PO QPM 11/17/18 05/04/19 Olopatadine HCl [Patanol] 5 ml OP PRN PRN 11/17/18 05/05/19 Pimecrolimus [Elidel] 1 applic TP PRN PRN 11/17/18 05/05/19 Temazepam [Restoril] 7.5 mg PO PRN PRN 11/17/18 05/05/19 Ondansetron Odt [Zofran Odt] 4 mg TL Q6H PRN #10 tablet 01/09/19 05/04/19 Clopidogrel [Plavix] 75 mg PO DAILY #21 tablet 05/05/19 Levothyroxine Sodium 50 mcg PO DAILY 05/05/19 05/05/19 Metoprolol Succinate [Toprol Xl] 25 mg PO DAILY 05/05/19 05/05/19 Oxybutynin [Oxytrol For Women] 1 each TD Q3D #30 patch.td.4 05/05/19 Rosuvastatin Calcium [Crestor] 40 mg PO DAILY #30 tablet 05/05/19 - Allergies Allergies/Adverse Reactions: Allergies Allergy/AdvReac Type Severity Reaction Status Date / Time pseudoephedrine Allergy Severe Anaphylaxis Verified 04/17/20 10:51 codeine Allergy Intermediate Nausea Verified 04/17/20 10:51 tetracycline [Tetracycline] Allergy Intermediate Hives Verified 04/17/20 10:51 duloxetine Allergy Rash Verified 04/17/20 10:51 ciprofloxacin [From Cipro] AdvReac due to Verified 04/17/20 10:51 achilles tendon levofloxacin [From Levaquin] AdvReac due to Verified 04/17/20 10:51 achilles tendon lisinopril AdvReac Respiratory Verified 04/17/20 10:51 - Social History Does the pt smoke?: No Smoking Status: Never smoker Does the pt drink ETOH?: No Does the pt have substance abuse?: No - Immunizations Immunizations are current?: Yes - POLST Patient has POLST: No POLST Status: Full Code PD ED PE NORMAL - Vitals Vital signs reviewed: Yes - General General: Alert and oriented X 3, No acute distress, Well developed/nourished - HEENT HEENT: Atraumatic - Neck Neck: Supple, no meningeal sign - Cardiac Cardiac: RRR - Respiratory Respiratory: No respiratory distress, Clear bilaterally - Abdomen Abdomen: Non tender, Non distended - Female Female : Deferred - Rectal Rectal: Deferred - Back Back: No CVA TTP - Derm Derm: Normal color, Warm and dry, No rash - Extremities Extremities: No deformity, No edema - Neuro Neuro: Alert and oriented X 3 - Psych Psych: Normal mood, Normal affect Results - Vitals Vitals: Vital Signs - 24 hr 04/17/20 04/17/20 04/17/20 10:44 11:10 11:30 Temperature 36.0 C L Heart Rate 60 60 60 Respiratory 20 20 16 Rate Blood Pressure 220/83 H 174/62 H 181/64 H O2 Saturation 98 97 99 04/17/20 04/17/20 04/17/20 11:50 12:39 13:26 Temperature Heart Rate 60 60 60 Respiratory 14 14 12 Rate Blood Pressure 180/66 H 186/72 H 187/72 H O2 Saturation 97 100 99 04/17/20 13:56 Temperature Heart Rate 62 Respiratory 17 Rate Blood Pressure 146/50 H O2 Saturation 96 Oxygen O2 Source Room air - EKG (time done) 1041 Rate: Rate (enter#) (60) Rhythm: NSR (atrial paced complexes) [place]: Normal Intervals: Normal [place] QRS: Normal Ischemia: Normal ST segments Computer interpretation: Agree with computer - Labs Labs: Laboratory Tests 04/17/20 04/17/20 04/17/20 11:01 11:01 11:01 WBC 7.6 RBC 4.45 Hgb 13.2 Hct 41.3 MCV 92.8 MCH 29.7 MCHC 32.0 RDW 13.1 Plt Count 305 MPV 9.0 Neut # (Auto) 4.1 Lymph # (Auto) 2.5 [place] # (Auto) 0.6 Eos # (Auto) 0.4 Baso # (Auto) 0.0 Absolute Nucleated RBC 0.00 Nucleated RBC % 0.0 Sodium 141 Potassium 3.8 Chloride 102 Carbon Dioxide 25 Anion Gap 14.0 H BUN 22 H Creatinine 0.6 Estimated GFR (MDRD) 99 Glucose 106 H Calcium 9.6 Total Bilirubin 0.6 AST 21 ALT 23 Alkaline Phosphatase 95 Troponin I High Sens 4.7 B-Natriuretic Peptide Total Protein 7.3 Albumin 4.0 Globulin 3.3 Albumin/Globulin Ratio 1.2 Lipase 32 Nasal Adenovirus (PCR) Nasal B. parapertussis DNA (PCR) Nasal Coronavir 229E PCR Nasal Coronavir HKU1 PCR Nasal Coronavir NL63 PCR Nasal Coronavir OC43 PCR Nasal Enterovir/Rhinovir PCR Nasal Influenza B PCR Nasal Influenza A PCR Nasal Parainfluen 1 PCR Nasal Parainfluen 2 PCR Nasal Parainfluen 3 PCR Nasal Parainfluen 4 PCR Nasal RSV (PCR) Nasal B.pertussis DNA PCR Nasal C.pneumoniae (PCR) [place] Human Metapneumo PCR Nasal M.pneumoniae (PCR) Nasal SARS-CoV-2 (PCR) 04/17/20 04/17/20 11:01 12:45 WBC RBC Hgb Hct MCV MCH MCHC RDW Plt Count MPV Neut # (Auto) Lymph # (Auto) [place] # (Auto) Eos # (Auto) Baso # (Auto) Absolute Nucleated RBC Nucleated RBC % Sodium Potassium Chloride Carbon Dioxide Anion Gap BUN Creatinine Estimated GFR (MDRD) Glucose Calcium Total Bilirubin AST ALT Alkaline Phosphatase Troponin I High Sens B-Natriuretic Peptide 47 Total Protein Albumin Globulin Albumin/Globulin Ratio Lipase Nasal Adenovirus (PCR) NOT DETECTED Nasal B. parapertussis DNA (PCR) NOT DETECTED Nasal Coronavir 229E PCR NOT DETECTED Nasal Coronavir HKU1 PCR NOT DETECTED Nasal Coronavir NL63 PCR NOT DETECTED Nasal Coronavir OC43 PCR NOT DETECTED Nasal Enterovir/Rhinovir PCR NOT DETECTED Nasal Influenza B PCR NOT DETECTED Nasal Influenza A PCR NOT DETECTED Nasal Parainfluen 1 PCR NOT DETECTED Nasal Parainfluen 2 PCR NOT DETECTED Nasal Parainfluen 3 PCR NOT DETECTED Nasal Parainfluen 4 PCR NOT DETECTED Nasal RSV (PCR) NOT DETECTED Nasal B.pertussis DNA PCR NOT DETECTED Nasal C.pneumoniae (PCR) NOT DETECTED Lucia Human Metapneumo PCR NOT DETECTED Nasal M.pneumoniae (PCR) NOT DETECTED Nasal SARS-CoV-2 (PCR) NOT DETECTED PD MEDICAL DECISION MAKING - ED course ED course: 70-year-old woman with history of multiple heart related conditions comes in with severe hypertension and anginal symptoms. Initial EKG atrial paced complex with no evidence of exacerbation on clinical exam or blood work. Troponin negative. Patient with initial improvement in chest pain status post nitroglycerin and home medications, however her pain is now returning. Will give IV labetalol and repeat EKG. Patient may need inpatient hospitalization for further care and management Departure - Departure Disposition: 66 [facility] DC/Xfer Clinical Impression: Hypertensive emergency, Chest pain, Shortness of breath, Nausea, Dizziness
[2020-04-17 13:52] LABS: C. PNEUMONIAE- RESP PCR PANEL NOT DETECTED
[2020-04-17] MEDS ORDERED: ONDANSETRON ODT 4 MG TABLET TL PRN (14:11)
[2020-04-17] MEDS ORDERED: SODIUM CHLORIDE FLUSH 0.9% 10 ML SYRINGE IVP PRN (14:11)
[2020-04-17] MEDS ORDERED: ONDANSETRON 4 MG/2 ML VIAL IVP PRN (14:11)
[2020-04-17] MEDS ORDERED: oxyCODONE 5 MG TABLET PO PRN (14:11)
[2020-04-17] MEDS ORDERED: ACETAMINOPHEN 325 MG TABLET PO PRN (14:11)
--- NOTE | 2020-04-17 15:32 | HISTORY & PHYSICAL EXAMINATION ---
Chief Complaint - Chief Complaint Chief Complaint: chest pain and dizziness History of Present Illness - Admitted From Admitted From:: home - History Obtained From Records Reviewed: [facility] History obtained from: Patient and chart review - History of Present Illness HPI Comment/Other: 70 year old female with extensive past medical history including pacemaker placement for bradycardia and afib, congestive heart failure and hypertension admitted with a history of chest pain x 3 weeks, dizziness, fatigue and shortness of breath. She reports the chest pain has been present for approximately 3 weeks, 3-8/10, gradually getting worse. It is intermittent and crampy. Nothing helped make it better or worse at home but it was relieved with nitroglycerine in the ER. As [place] was not improving[place] to the ED. She also complains of dizziness and lightheadedness x3 weeks. She can't pinpoint what could be causing the dizziness and lightheadedness- sometimes it starts when she first stands up, sometimes it happens after she's been walking, and sometimes her legs give out. Additionally she reports SOB both at rest and on exertion. She is unable to walk farther than one block due to SOB, but she reports this is not new and a CT scan of her chest performed by her Trail Construction Worker was negative. She has been compliant with all medications over the past year with exception of Oxybutynin or Crestor, as she does not like how she feels when she takes them and believes they cause her to have worse pain. On assessment in the ED, she was found to have hypertension with SBP to 220, requiring Labetolol administration. SBP currently in 130s. She checks her BP at home and reports her machine has been reading 125-135/72-86 over the last 3 weeks, and she was surprised to see it so elevated today. She has also noticed her pacemaker occasionally working (she is a-paced), and her item repair manager has told her she has occasional beats of afib for 2-[address] Richard spoke with her item repair manager, who reports performing 3 stress tests and a coronary angiogram, last done April 2019 and all have been negative. Pt reports starting Metoprolol in February 2020 and has been taking as prescribed. She has a history of anxiety and panic attacks and takes Lexapro. She denies increased stress at home or with her medical conditions and does not believe her symptoms are stress induced. Pt additionally reports hot flashes and chills at home x4 days. Denies fever, cough, or recent sick contacts. She has gained 25 pounds over the last year after initially losing 65 prior to Covid. She has had diarrhea x2 days but typically has constipation. Lastly, she has also been having left temporal headaches that come and go and are dull, and she believes are related to carotid stenosis. Nothing makes them better or worse. She has a history of migraines but says this is different. Currently the headache is mild. Remaining ROS is negative. After examination in the ED, she was admitted for observation of her chest pain, HTN, and dizziness. History - Past Medical History Cardiovascular: reports: Congestive heart failure, Hypertension, High cholesterol, Arrhythmia, Other Respiratory: reports: Sleep apnea, CPAP use Neuro: reports: TIA, Migraines, Peripheral neuropathy, Fainting Endocrine/Autoimmune: reports: HyPOthyroidism GI: reports: Colon polyps, Chronic constipation, Hemorrhoids : reports: Incontinence, Chronic bladder infection, Frequency, Kidney stones, Other HEENT: reports: Chronic vision loss, Chronic sinusitis, Other Psych: reports: Anxiety, Panic attacks, Claustrophobia Musculoskeletal: reports: Osteoarthritis, Fibromyalgia, Osteoporosis, Gout, Fatigue, Chronic back pain, Other Derm: reports: Eczema, Other MRSA Hx?: No - Past Surgical History General: reports: Colonoscopy, Other Ortho: reports: Carpal Tunnel surgery, Spine surgery, Other /OPERATIONS MANA[employer]: reports: 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, Oophrectomy, Breast reduction, Other Cardiovascular: reports: Pacemaker HEENT: reports: Cataracts, Myringotomy (tubes), Other - Family & Social History Family History Comment/Other: Mom with severe dementia, in [facility], also had cancer and CABG. father never known. 3 sisters and 2 brothers. One sister as complications of fibromyalgia and chronic pain, one sister w cancer, 2 brothers w DM, CAD/CABG and stroke, HTN, kidney disease, Hep C also present in siblings. 1 daughter and 1 son. Daughter w MS/lupus, chronic pain syndrome. Son w heart disease Living arrangement: At home Living Situation: With spouse/s.o. Social History Notes: She is from [place]. a man who is in the [employer], he was career. 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 When he retired they came back to [facility]. She never smoked. Very rarely drank. No history of recreational substance abuse. They live in their own home in [place]. They have 2 kids, 1 daughter and 1 son, and 5 grandkids. - Substance History Use: Uses substance without health or social issues: NONE Abuse: Recurrent use of substance despite neg consequences: NONE Dependence: Experiences withdrawal or developed tolerances: NONE - POLST Patient has POLST: No POLST Status: Full Code Meds/Allgy - Home Medications Home Medications: Ambulatory Orders Medication Instructions Recorded Confirmed Cholecalciferol (Vitamin D3) 1,000 unit PO DAILY 12/18/13 04/17/20 [Vitamin D3] Indomethacin 25 mg PO PRN PRN 12/18/13 04/17/20 allopurinoL [Allopurinol] 100 mg PO DAILY 12/18/13 04/17/20 Diazepam [Valium] 10 mg ORAL DAILY PRN 12/25/13 04/17/20 Aspirin [Aspirin EC] 81 mg PO DAILY 11/17/18 04/17/20 Clobetasol Propionate/Emoll 1 applic TP PRN PRN 11/17/18 04/17/20 [Clobetasol Emollient 0.05% Crm] Desonide 1 applic TP ONCE PRN 11/17/18 04/17/20 Escitalopram [Lexapro] 10 mg PO DAILY 11/17/18 04/17/20 Fluticasone [Flonase] 1 sprays LUCIA DAILY PRN 11/17/18 04/17/20 Hydrochlorothiazide 12.5 mg PO DAILY 11/17/18 04/17/20 Loratadine [Claritin] 10 mg PO DAILY PRN 11/17/18 04/17/20 Losartan Potassium 25 mg PO BID 11/17/18 04/17/20 Lysine [l-Lysine] 500 mg PO BID 11/17/18 04/17/20 Magnesium Sulfate 100 mg PO QPM 11/17/18 04/17/20 Olopatadine HCl [Patanol] 5 ml OP PRN PRN 11/17/18 04/17/20 Pimecrolimus [Elidel] 1 applic TP PRN PRN 11/17/18 04/17/20 Ondansetron Odt [Zofran Odt] 4 mg TL Q6H PRN #10 tablet 01/09/19 04/17/20 Levothyroxine Sodium 50 mcg PO DAILY 05/05/19 04/17/20 Metoprolol Succinate [Toprol Xl] 25 mg PO QPM 05/05/19 04/17/20 Montelukast [Singulair] 10 mg PO QPM 04/17/20 04/17/20 - Allergies Allergies/Adverse Reactions: Allergies Allergy/AdvReac Type Severity Reaction Status Date / Time pseudoephedrine Allergy Severe Anaphylaxis Verified 04/17/20 10:51 codeine Allergy Intermediate Nausea Verified 04/17/20 10:51 tetracycline [Tetracycline] Allergy Intermediate Hives Verified 04/17/20 10:51 duloxetine Allergy Rash Verified 04/17/20 10:51 ciprofloxacin [From Cipro] AdvReac due to Verified 04/17/20 10:51 achilles tendon levofloxacin [From Levaquin] AdvReac due to Verified 04/17/20 10:51 achilles tendon lisinopril AdvReac Respiratory Verified 04/17/20 10:51 Review of Systems - Constitutional Constitutional: reports: Fatigue, Chills, Poor appetite, Weight gain (25 pounds over the last year after a 65 pound weight loss) - Eyes Eyes: denies: Pain, Irritation, Spots in vision, Vision loss - Ears, Nose & Throat Ears, Nose & Throat: denies: Ear pain, Hearing loss, Hearing aids, Nasal discharge, Sore throat, Hoarseness - Cardiovascular Cariovascular: reports: Chest pain (currently 3/10, "crampy", intermittent, better with nitro and not sure what makes it worse. Non-radiating), Lightheadedness, Syncope, Exertional dyspnea, Decr. exercise tolerance. denies: Irregular heart rate, Palpitations - Respiratory Respiratory: reports: SOB at rest, SOB with exertion. denies: Cough, Wheezing, Hemoptysis - Gastrointestinal Gastrointestinal: reports: Diarrhea (x2-3 days, usually with hx constipation), Nausea (x3 weeks), Poor appetite. denies: Abdominal pain, Constipation, Black stools, Bloody stools, Vomiting - Genitourinary Genitourinary: reports: Dysuria, Frequency, Incontinence. denies: Urgency - Musculoskeletal Musculoskeletal: reports: Muscle pain, Back pain, Joint pain - Integumentary Integumentary: denies: Rash, Lesions, Dryness - Neurological Neurological: reports: Headache, Dizziness. denies: Memory problems, Abnormal gait, Incoordination, Slurred speech - Psychiatric Psychiatric: reports: Anxiety. denies: Depression - Endocrine Endocrine: denies: Polyuria, Polydypsia, Polyphagia - All Other Systems All Other Systems: reports: Reviewed and negative Prior Level of Functionality: Independent with ADLs. Able to do light housework and laundry, helps when she needs it. She is able to drive but has her do most of the driving. Able to pay her bills and grocery shop as needed. Exam - Vital Signs Reviewed Vital Signs: Yes Vital Signs: Vital Signs x48h Temp Pulse Resp BP Pulse Ox 04/17/20 14:27 63 13 138/62 H 100 04/17/20 13:56 62 17 146/50 H 96 04/17/20 13:26 60 12 187/72 H 99 04/17/20 12:39 60 14 186/72 H 100 04/17/20 11:50 60 14 180/66 H 97 04/17/20 11:30 60 16 181/64 H 99 04/17/20 11:10 60 20 174/62 H 97 04/17/20 10:44 36.0 C L 60 20 220/83 H 98 - Physical Exam General Appearance: positive: No acute distress Eyes Bilateral: positive: Normal inspection, PERRL, Conjunctivae nml, No scleral icterus ENT: positive: ENT inspection nml Neck: positive: Nml inspection Respiratory: positive: No respiratory distress, Breath sounds nml Cardiovascular: positive: Regular rate & rhythm, Systolic murmur, Other (A paced pacemaker) Peripheral Pulses: positive: 2+ Abdomen: positive: No organomegaly, Nml bowel sounds, No distention, Tenderness (RLQ initially tender to deep palpation but this was not reproducible). negative: Guarding, Rebound Back: positive: Nml inspection Skin: positive: Pallor Extremities: positive: Non-tender, Full ROM, Nml appearance, No pedal edema Neurologic/Psychiatric: positive: Oriented x3, Other (reports peripheral neuropathy along the plantar foot and posterior calf to just below the knee) Sepsis Event Note (H) - Evaluation Current Stage of Sepsis: Ruled out Conclusion/Plan - Problem List (1) Chest pain Conclusion/Plan: Has been present x3 weeks, located substernally and described as crampy. Initial presentation was reportedly 8/10 but is now 3/10. Intermittent with gradual onset that has worsened over time. At home, nothing made it better or worse but in the ER relief was noted after receiving nitro. Also given ASA in the ED. Troponins 4.7 and 4.4 on recheck, normal, and EKG a-paced but sinus rhythm. No ST elevation or depression noted. Systolic ejection murmur noted on auscultation. Admitted for further work up and monitoring. May be related to HTN. 1. Telemetry 2. Recheck troponin in am 3. Stress test Qualifiers: Chest pain type: other chest pain Qualified Code(s): R07.89 - Other chest pain; R07.8 - Other chest pain (2) Hypertension Conclusion/Plan: Hx of HTN. Found to have BP 220/83 when seen in the ED, given Losartan, Labetolol and HCTZ with BP down to 138/62. Trending back up currently to 150/63. HR 59-63, has a pacemaker that is a-paced. Reports that when checking her BP at home her machine in the last 3 weeks has been reading 125-135/72-86. Has been taking her medication as prescribed, newly prescribed Metoprolol in February 2020. 1. Q4 VS, monitor BP 2. Resume home cardiac meds when able Qualifiers: Hypertension type: essential hypertension Qualified Code(s): I10 - Essential (primary) hypertension (3) Dizziness Conclusion/Plan: Present x3 weeks for unclear reasons. Not associated with anything specific as it has occurred when she stands up but also after she has been walking to the bathroom. Does not see spots and has not fainted, but feels like she is about to. No signs of dehydration as mucus membranes are moist, she is not tachycardic, and creatinine was 0.6. May be related to her PICA and carotid stenosis. 1. Fall precautions 2. Orthostatic blood pressure check 3. CTA head and neck (4) Nausea Conclusion/Plan: Unclear origin, has been nauseated x3 weeks. Intermittent but has led to poor appetite. No emesis. Possibly GERD causing esophageal spasm. 1. PRN antiemetics (5) Shortness of breath Conclusion/Plan: Reports SOB both at rest and with exertion. She is unable to walk further than a block without resting and feeling SOB. Reports her item repair manager is aware and this is not new or worse. Does not require oxygen supplementation other than a CPAP used at night for EUNICE. Is not edematous. Has had a weight gain of 25 pounds over the last year, unintended, and does not appear to be having a CHF exacerbation. She has been taking her medications as directed. Reports she recently saw her Trail Construction Worker in [place] for fainting on airplanes and a sleep apnea check, and CT chest obtained was normal. CXR today was unremarkable with no cardiomyopathy. 1. Resume home meds for CHF when able. 2. Follow up with PCP and Home Theater Specialist for CHF management. (6) Headache Conclusion/Plan: Reports chronic migraines but also new left temporal region headaches that she believes are related to her carotid stenosis. Described as dull and intermittent, rated as 3/10 today. Nothing makes them better or worse and they are non-radiating. If her BP has been elevated over the past 3 weeks this may be a manifestation of the high blood pressure. 1. PRN analgesia as needed 2. Monitor BP Qualifiers: Headache type: tension-type Headache chronicity pattern: acute headache Intractability: not intractable Qualified Code(s): G44.209 - Tension-type headache, unspecified, not intractable (7) Congestive heart failure Conclusion/Plan: Stable. BNP 47. Preserved EF, no reduced ejection fraction per prior H&P by Dr. Richard in April 2019. She does not have s/s fluid overload or exacerbation, but does have SOB at rest and on exertion. No peripheral edema and lungs are clear. Has been taking medication as prescribed. Noted to have a systolic ejection murmur on auscultation. 1. Resume home medications when appropriate 2. Follow up with PCP and Home Theater Specialist for management Qualifiers: Heart failure type: diastolic Heart failure chronicity: chronic Qualified Code(s): I50.32 - Chronic diastolic (congestive) heart failure (8) Hyperlipidemia Conclusion/Plan: Reports she has not been taking her Crestor as she does not like the way it feels. No recent cholesterol labs. Will need these checked and follow up with her PCP to find a medication she can tolerate given her hx of hyperlipidemia, afib, and TIA and increased risk for stroke. 1. Check CMP with cholesterol panel 2. Follow up PCP for medication discussion Qualifiers: Hyperlipidemia type: pure hypercholesterolemia Qualified Code(s): E78.00 - Pure hypercholesterolemia, unspecified; E78.0 - Pure hypercholesterolemia (9) Hypothyroid Conclusion/Plan: Takes Levothyroxine daily and reports medication compliance. TSH 4.41 (normal) when last checked in April 2019. Reports new chills and heat intolerance as well as weight gain of 25 pounds over the past year, unintentional (she is calling it "Covid 25"). Will need to have new thyroid levels drawn to ensure appropriate dose of Levothyroxine. 1. Check thyroid panel 2. Follow up with PCP Qualifiers: Hypothyroidism type: postoperative Qualified Code(s): E89.0 - Postprocedu ral hypothyroidism (10) EUNICE on CPAP Conclusion/Plan: Uses a CPAP at home, cannot remember the settings. Will need RT consult for CPAP tonight. Does not require oxygen supplementation when awake. 1. RT consult for CPAP for treatment of EUNICE while in house (11) Pacemaker Conclusion/Plan: Placed for treatment of bradycardia and afib per past medical records. Current tele rhythm is sinus rhythm, a-paced. HR has been 59-63. She reports she has felt it work "a few times" over the past 3 weeks but her Home Theater Specialist has been following her and she reports being told she's only had a few 2-3 second beats of afib. 1. Telemetry 2. Follow up with Home Theater Specialist (12) Urinary incontinence Conclusion/Plan: Reports functional incontinence x15 years. She wears depends at baseline. Has not been taking her oxybutynin as she does not like the way it makes her feel, believes it adds to her chronic pain. 1. Follow up with PCP. Qualifiers: Urinary Incontinence type: functional incontinence Qualified Code(s): R39.81 - Functional urinary incontinence (13) Carotid artery stenosis Conclusion/Plan: CT angiogram in May 2018 showed suspected occlusion of the distal right M1 segment just distal to the first M2 segmental branch takeoff. There is reconstitution of flow within the proximally occluded M2 segment branches via collaterals with slightly diminished perfusion suspected in the right hemisphere. She has greater than 50% stenosis in the right carotid terminus. High-grade stenosis at the origin of the hypoplastic right A1 segment anterior to the artery she is patent. No other hemodynamically significant stenosis in the great vessels of the neck. Has been complaining of left temporal headaches that she believes may be related to the carotid stenosis. 1. Resume home medications when appropriate - Lab Results Fish Bones: 04/17/20 11:01 04/17/20 11:01 - EKG Results EKG Interpreted Independently: Yes Core Measures - Anticipated LOS I expect patient to be DC'd or transferred within 96 hours.: Yes - DVT/VTE - Prophylaxis VTE/DVT Device ordered at admit?: Yes
--- NOTE | 2020-04-17 17:12 | PHARMACY PROGRESS NOTE ---
- Best Possible Medication History Admit Date and Time: 04/17/20 1411 Processed by: Pharmacy Medication History completed: Yes Patient Interview: Completed Secondary Source(s): Physician records, Pharmacy records, Insurance records (PATIENT INTERVIEWED BY PHARMACY. PATIENT ABLE TO CONFIRM HOME MEDICATIONS) As the person ultimately responsible for medication therapy, providers are able to order a medication from an existing home medication list in [facility] via the "Reconcile Routine" prior to Confirmation of that medication by network support technician. Such practice is discouraged except when the physician, in their clinical judgment, deems that a medical need exists for a medication without regard to previous use.
[2020-04-17] MEDS: SODIUM CHLORIDE FLUSH 0.9% 10 ML SYRINGE IVP SCH (18:49)
[2020-04-17] MEDS ORDERED: IOVERSOL 320 100 ML VIAL IVP ONE ×2 (19:07→20:03)
--- NOTE | 2020-04-17 19:59 | CT Report ---
PROCEDURE: ANGIO NECK W INDICATIONS: dizzy w hx of carotid dz CONTRAST: IV CONTRAST: Optiray 320 ml: 80 PO CONTRAST: *NO PO CONTRAST TECHNIQUE: After the administration of intravenous contrast, 1.5 mm axial sections acquired from the aortic arch to the [place]. Coronal 3-D maximum intensity projection (MIP) and/or volume rendering ref ormats were then performed. For radiation dose reduction, the following was used: automated exposur e control, adjustment of mA and/or kV according to patient size. COMPARISON: 05/04/2019. FINDINGS: Image quality: Limited secondary to the markedly artifact related to C5-C6 and C6-7 C7 disc prosthese s.. Carotid system: The great vessels demonstrate a conventional anatomy as they arise from the aortic a rch. The origins of the common carotid arteries appear patent. The common carotid arteries demonstr ate normal calibers and courses. Atherosclerotic calcifications noted in the origins of the internal carotid arteries bilaterally which causes less than 50% stenosis of the right internal carotid artery and approximately 50% stenosis of the left internal carotid artery Posterior circulation: Portions of the vertebral arteries are not visualized due to artifact related to metallic cervical spine disc prostheses. The origins of the vertebral arteries appear patent. Th e well-visualized portions of the cervical segments of the cerebral arteries are fully patent. Soft a therosclerotic plaque noted in the mid V4 segment of the left visual artery which causes short segmen t, moderate to high-grade stenosis. Mild atherosclerotic irregularity causing mild multifocal stenose s noted throughout the basilar artery. Soft tissues: Visualized neck soft tissues demonstrate no suspicious abnormalities. Left lower thyro id gland is absent. Isthmus and right lower thyroid gland are normal in appearance. Bones: No suspic ious bony lesions. Visualized cervical spine appears normally aligned. IMPRESSION: 1. Image quality limited by beam hardening artifact related to C5-C6 and C6-7 C7 metallic interverteb ral disc prostheses. 2. Less than 50% stenosis of the origin of the right internal carotid artery and approximately 50% st enosis of the origin the left internal carotid artery.. 3. Well visualized portions of the cervical segments of the vertebral arteries are fully patent. Port ions of the T2 segments of the vertebral arteries are obscured by beam hardening artifact and cannot be evaluated. 4. Moderate to high-grade short segment stenosis of the mid V4 segment of the left vertebral artery. The estimate of stenosis included in the report of the imaging study was calculated using the NASCET method Reviewed by: Fifi Harden MD, PhD on 04/17/2020 7:58 PM PST Approved by: Fifi Harden MD, PhD on 04/17/2020 7:58 PM PST Station ID: [id number]
--- NOTE | 2020-04-17 20:09 | CT Report ---
PROCEDURE: ANGIO HEAD W/WO INDICATIONS: dizziness w hx of arteriosclerotic dz CONTRAST: IV CONTRAST: Optiray 320 ml: 80 PO CONTRAST: *NO PO CONTRAST TECHNIQUE: Precontrast 4.5 mm thick angled axial sections acquired from the foramen magnum to the vertex. Afte r the administration of intravenous contrast, 1 mm thick sections acquired through the [place] of [place] is. Postcontrast 4.5 mm thick sections then re-acquired from the foramen magnum to the vertex. 3-di mensional [id number]-[id number]-orycsrcuxy (MIP) and/or volume rendering reformats were acquired of the c entral intracranial vasculature. For radiation dose reduction, the following was used: automated ex posure control, adjustment of mA and/or kV according to patient size. COMPARISON: 05/04/2019 FINDINGS: Image quality: Excellent. Anterior circulation: Intracranial internal carotid arteries are normal in flow. Atherosclerotic yari cifications noted in the cavernous and clinoid segments of the internal carotid arteries bilaterally which causes mild to moderate stenoses. The flow within the paired anterior cerebral arteries is nor mal and symmetric. The flow within the middle cerebral arteries is normal. Mild atherosclerotic irre gularity of the M1 segment of the right middle cerebral artery. Left middle cerebral artery is fully patent. The anterior communicating artery is seen. No aneurysms are seen. Posterior circulation: Visualized portions of the vertebral arteries demonstrate normal caliber, and join to form a normal appearing basilar artery. Flow within the posterior cerebral arteries is norm al and symmetric. No aneurysms are seen. Dural sinuses demonstrate normal postcontrast enhancement. CSF spaces: Ventricles are normal in size and shape. Basal cisterns are patent. No extra-axial flu id collections. Brain: No midline shift. No intracranial bleeds or masses. Jones-white matter interface appears int act. Skull and face: Calvarium and facial bones appear intact, without suspicious lesions. Sinuses: Visualized sinuses and mastoids are clear. IMPRESSION: 1. No acute intracranial disease process. 2. No large vessel occlusion, hemodynamically significant vascular stenosis, vascular dissection or a neurysm. 3. Mild atherosclerotic stenosis of the M1 segment of the right middle cerebral artery. 4. Moderate stenosis of the cavernous and clinoid segments of the internal carotid arteries. Reviewed by: Fifi Harden MD, PhD on 04/17/2020 8:08 PM PST Approved by: Fifi Harden MD, PhD on 04/17/2020 8:08 PM [facility] Station ID: [id number]
[2020-04-18 05:45] LABS: CHOL/HDL RATIO 5.9 (<4.4); CHOLESTEROL 246 mg/dL; HDL CHOLESTEROL 42 mg/dL; LDL CHOLESTEROL,CALCULATED 181 mg/dL; LDL/HDL RATIO 4.3 (<4.4); VLDL CHOLESTEROL 23 mg/dL
[2020-04-18] MEDS: SODIUM CHLORIDE FLUSH 0.9% 10 ML SYRINGE IVP SCH ×3 (07:01→17:28)
--- NOTE | 2020-04-18 09:17 | DISCHARGE SUMMARY ---
Discharge Summary Admit Date: 04/17/20 Discharge Date: 04/18/20 Discharging Provider: Esme Richard Primary Care Provider: Kelle Gonsalez Code Status: Attempt Resuscitation Condition at Discharge: Stable Discharge Disposition: 01 Home, Self Care - DIAGNOSES Discharge Diagnoses with Status of Each Condition: (1) Chest pain Conclusion/Plan: Stable. Has been present x3 weeks, located substernally and described as cr ampy. Initial presentation was reportedly 8/10 but is now 3/10. Intermittent with gradual onset that has worsened over time. At home, nothing made it better or worse but in the ER relief was noted after receiving nitro. Also given ASA in the ED. Troponins 4.7 and 4.4 on recheck, normal, and EKG a-paced but sinus rhythm. No ST elevation or depression noted. Systolic ejection murmur noted on auscultation. Reports she had three short episodes of pain overnight and one this morning; does not believe it is related to indigestion and no tele abnormalities at the time. BP has been within normal range. 1. Telemetry 3. Stress test done, no ischemic changes seen. Qualifiers: Chest pain type: other chest pain Qualified Code(s): R07.89 - Other chest pain; R07.8 - Other chest pain (2) Hypertension Conclusion/Plan: Hx of HTN. Found to have BP 220/83 when seen in the ED, given Losartan, Labetol ol and HCTZ with BP down to 138/62. Has remained stable with SBP 1030-150s. HR 59-63, has a pacemaker that is a-paced. Reports that when checking her BP at home her machine in the last 3 weeks has been reading 125-135/72-86. Has been taking her medication as prescribed, newly prescribed Metoprolol in February 2020. HTN at discharge, instructed to take her BP meds when she gets home as they were held for the stress test. 1. Monitor BP 2. Resume home cardiac meds Qualifiers: Hypertension type: essential hypertension Qualified Code(s): I10 - Essential (primary) hypertension (3) Dizziness Conclusion/Plan: Present x3 weeks for unclear reasons. Not associated with anything specific as it has occurred when she stands up but also after she has been walking to the bathroom. Does not see spots and has not fainted, but feels like she is about to. No signs of dehydration as mucus membranes are moist, she is not tachycardic, and creatinine was 0.6. Likely related to carotid stenosis. 1. CTA head and neck completed (4) Nausea Conclusion/Plan: Resolved. No reports of nausea this morning or overnight. Unclear origin, has been nauseated x3 weeks. Possibly GERD causing esophageal spasm. 1. PRN antiemetics (5) Shortness of breath Conclusion/Plan: Stable. Reports SOB both at rest and with exertion. She is unable to walk further than a block without resting and feeling SOB. Reports her programmer analyst consultant is aware and this is not new or worse. Does not require oxygen supplementation other than a CPAP used at night for EUNICE. Is not edematous. Has had a weight gain of 25 pounds over the last year, unintended, and does not appear to be having a CHF exacerbation. She has been taking her medications as directed. Reports she recently saw her Special Needs Tutor in [place] for fainting on airplanes and a sleep apnea check, and CT chest obtained was normal. CXR on admission was unremarkable with no cardiomyopathy. 1. Resume home meds for CHF . 2. Follow up with PCP and [employer] for CHF management. (6) Headache Conclusion/Plan: Stable. Reports chronic migraines but also new left temporal region headaches that she believes are related to her carotid stenosis. Described as dull and intermittent, rated as 3/10 today. Nothing makes them better or worse and they are non-radiating. If her BP has been elevated over the past 3 weeks this may be a manifestation of the high blood pressure, however likely related to her stenosis given her head and neck CTA findings. 1. PRN analgesia as needed 2. Monitor BP Qualifiers: Headache type: tension-type Headache chronicity pattern: acute headache Intractability: not intractable Qualified Code(s): G44.209 - Tension-type headache, unspecified, not intractable (7) Congestive heart failure Conclusion/Plan: Stable. BNP 47. Preserved EF, no reduced ejection fraction per prior H&P by Dr. Richard in April 2019. EF 78% per stress test today. She does not have s/s fluid overload or exacerbation, but does have SOB at rest and on exertion. No peripheral edema and lungs are clear. Has been taking medication as prescribed. Noted to have a systolic ejection murmur on auscultation. 1. Resume home medications 2. Follow up with PCP and [employer] for management Qualifiers: Heart failure type: diastolic Heart failure chronicity: chronic Qualified Code(s): I50.32 - Chronic diastolic (congestive) heart failure (8) Hyperlipidemia Conclusion/Plan: Stable. Reports she has not been taking her Crestor as she does not like the way it feels. Cholesterol elevated on labs this morning, she was educated on her increased risk for stroke given her cardiac history, artery stenosis, afib and cholesterol levels. She does not want to take statins because she believes they add to her pain. She believes changing her diet back to a keto diet will help. She was instructed to follow up with her PCP. 1. Follow up PCP Qualifiers: Hyperlipidemia type: pure hypercholesterolemia Qualified Code(s): E78.00 - Pure hypercholesterolemia, unspecified; E78.0 - Pure hypercholesterolemia (9) Hypothyroid Conclusion/Plan: Stable. Takes Levothyroxine daily and reports medication compliance. TSH normal on am labs. 1. Follow up with PCP Qualifiers: Hypothyroidism type: postoperative Qualified Code(s): E89.0 - Postprocedural hypothyroidism (10) EUNICE on CPAP Conclusion/Plan: Stable. Uses a CPAP at home, cannot remember the settings. brought her CPAP from home and she was able to sleep last night. Does not require oxygen supplementation when awake. 1. RT consult for CPAP for treatment of EUNICE while in house (11) Pacemaker Conclusion/Plan: Stable. Placed for treatment of bradycardia and afib per past medical records. Current tele rhythm is sinus rhythm, a-paced. HR has been 59-63. 1. Telemetry 2. Follow up with [employer]ter (12) Urinary incontinence Conclusion/Plan: Stable. Reports functional incontinence x15 years. She wears depends at baseline. Has not been taking her oxybutynin as she does not like the way it makes her feel, believes it adds to her chronic pain. 1. Follow up with PCP. Qualifiers: Urinary Incontinence type: functional incontinence Qualified Code(s): R39.81 - Functional urinary incontinence (13) Carotid artery stenosis Conclusion/Plan: Stable. 2/4 Head CTA: no acute intracranial disease process no large vessel occlusion, hemodynamically significant vascular stenosis, vascular dissection or aneurysm mild atherosclerotic stenosis of the M1 segmental right mid cerebral artery moderate stenosis of the cavernous and clinoid segments of internal carotid arteries Neck CTA: <50% stenosis right internal carotid artery and approx 50% stenosis left internal carotid artery moderate to high grade short segment stenosis mid V4 segment left vertebral artery 1. Resume home medications - HPI History of Present Illness: 70 year old female with extensive past medical history including pacemaker placement for bradycardia and afib, congestive heart failure and hypertension admitted with a history of chest pain x 3 weeks, dizziness, fatigue and shortn ess of breath. She reports the chest pain has been present for approximately 3 weeks, 3-810, gradually getting worse. It is intermittent and crampy. Nothing helped make it better or worse at home but it was relieved with nitroglycerine in the ER. As it was not improving[place] to the ED. She also complains of dizziness and lightheadedness x3 weeks. She can't pinpoint what could be causing the dizziness and lightheadedness- sometimes it starts when she first stands up, sometimes it happens after she's been walking, and sometimes her legs give out. Additionally she reports SOB both at rest and on exertion. She is unable to walk farther than one block due to SOB, but she reports this is not new and a CT scan of her chest performed by her Special Needs Tutor was negative. She has been compliant with all medications over the past year with exception of Oxybutynin or Crestor, as she does not like how she feels when she takes them and believes they cause her to have worse pain. On assessment in the ED, she was found to have hypertension with SBP to 220, requiring Labetolol administration. SBP currently in 130s. She checks her BP at home and reports her machine has been reading 125-135/72-86 over the last 3 weeks, and she was surprised to see it so elevated today. She has also noticed her pacemaker occasionally working (she is a-paced), and her programmer analyst consultant has told her she has occasional beats of afib for 2-[address] Richard spoke with her programmer analyst consultant, who reports performing 3 stress tests and a coronary angiogram, last done April 2019 and all have been negative. Pt reports starting Metoprolol in February 2020 and has been taking as prescribed. She has a history of anxiety and panic attacks and takes Lexapro. She denies increased stress at home or with her medical conditions and does not believe her symptoms are stress induced. Pt additionally reports hot flashes and chills at home x4 days. Denies fever, cough, or recent sick contacts. She has gained 25 pounds over the last year after initially losing 65 prior to Covid. She has had diarrhea x2 days but typically has constipation. Lastly, she has also been having left temporal headaches that come and go and are dull, and she believes are related to carotid stenosis. Nothing makes them better or worse. She has a history of migraines but says this is different. Currently the headache is mild. Remaining ROS is negative. After examination in the ED, she was admitted for observation of her chest pain, HTN, and dizziness. - CONSULTS | PROCEDURES Procedures: 04/18 Stress Test-negative, no ischemic changes - HOSPITAL COURSE Hospital Course: Pt admitted with substernal chest pain that had decreased after leaving the ER, HTN, and dizziness. No EKG changes seen on tele, she was sinus rhythm A-paced. Did not require pain medication after the nitro given in the ED. Head and neck CTA revealed carotid stenosis that was known, and may be contributing to her headache and dizziness. After initial hypertension in ED her SBP was maintained 110-150s. At discharge SBP was 186 and she was instructed to take her home cardiac meds which had been held for a stress test. The stress test was done on HD 2 and was negative with no ischemic changes. She had multiple "quick" episodes of chest pain overnight and this morning that did not require intervention and self-resolved with deep breathing. Nausea improved overnight with one bout after her stress test today. She denied dizziness this morning. SOB is unchanged from her reported baseline. Her TSH was normal and cholesterol was elevated. She was discharged to home with her and instructed to follow up with her PCP regarding her HTN and HLD to discuss her medications. She does not like statins as she believes they make her chronic pain worse. - ALLERGIES Allergies/Adverse Reactions: Allergies Allergy/AdvReac Type Severity Reaction Status Date / Time pseudoephedrine Allergy Severe Anaphylaxis Verified 04/17/20 10:51 codeine Allergy Intermediate Nausea Verified 04/17/20 10:51 tetracycline [Tetracycline] Allergy Intermediate Hives Verified 04/17/20 10:51 duloxetine Allergy Rash Verified 04/17/20 10:51 ciprofloxacin [From Cipro] AdvReac due to Verified 04/17/20 10:51 achilles tendon levofloxacin [From Levaquin] AdvReac due to Verified 04/17/20 10:51 achilles tendon lisinopril AdvReac Respiratory Verified 04/17/20 10:51 - MEDICATIONS Home Medications: Ambulatory Orders Medication Instructions Recorded Confirmed Cholecalciferol (Vitamin D3) 1,000 unit PO DAILY 12/18/13 04/17/20 [Vitamin D3] Indomethacin 25 mg PO PRN PRN 12/18/13 04/17/20 allopurinoL [Allopurinol] 100 mg PO DAILY 12/18/13 04/17/20 Diazepam [Valium] 10 mg ORAL DAILY PRN 12/25/13 04/17/20 Aspirin [Aspirin EC] 81 mg PO DAILY 11/17/18 04/17/20 Clobetasol Propionate/Emoll 1 applic TP PRN PRN 11/17/18 04/17/20 [Clobetasol Emollient 0.05% Crm] Desonide 1 applic TP ONCE PRN 11/17/18 04/17/20 Escitalopram [Lexapro] 10 mg PO DAILY 11/17/18 04/17/20 Fluticasone [Flonase] 1 sprays LUCIA DAILY PRN 11/17/18 04/17/20 Hydrochlorothiazide 12.5 mg PO DAILY 11/17/18 04/17/20 Loratadine [Claritin] 10 mg PO DAILY PRN 11/17/18 04/17/20 Losartan Potassium 25 mg PO BID 11/17/18 04/17/20 Lysine [l-Lysine] 500 mg PO BID 11/17/18 04/17/20 Magnesium Sulfate 100 mg PO QPM 11/17/18 04/17/20 Olopatadine HCl [Patanol] 5 ml OP PRN PRN 11/17/18 04/17/20 Pimecrolimus [Elidel] 1 applic TP PRN PRN 11/17/18 04/17/20 Ondansetron Odt [Zofran Odt] 4 mg TL Q6H PRN #10 tablet 01/09/19 04/17/20 Levothyroxine Sodium 50 mcg PO DAILY 05/05/19 04/17/20 Metoprolol Succinate [Toprol Xl] 25 mg PO QPM 05/05/19 04/17/20 Montelukast [Singulair] 10 mg PO QPM 04/17/20 04/17/20 - PHYSICAL EXAM AT DISCHARGE General Appearance: positive: No acute distress, Alert Eyes Bilateral: positive: Normal inspection, PERRL, EOMI ENT: positive: ENT inspection nml, Pharynx nml, No signs of dehydration Neck: positive: Nml inspection Respiratory: positive: No respiratory distress, Breath sounds nml Cardiovascular: positive: Regular rate & rhythm, Systolic murmur Peripheral Pulses: positive: 2+ Abdomen: positive: Non-tender, No organomegaly, Nml bowel sounds, No distention Skin: positive: Color nml Extremities: positive: Non-tender, Full ROM, Nml appearance, No pedal edema Neurologic/Psychiatric: positive: Oriented x3 - LABS Result Diagrams: 04/17/20 11:01 04/17/20 11:01 - DIAGNOSTIC IMAGING Diagnostic Imaging Results: Final report reviewed Diagnostic Imaging Results Comments: 2/ Head CTA: no acute intracranial disease process no large vessel occlusion, hemodynamically significant vascular stenosis, vascular dissection or aneurysm mild atherosclerotic stenosis of the M1 segmental right mid cerebral artery moderate stenosis of the cavernous and clinoid segments of internal carotid arteries Neck CTA: <50% stenosis right internal carotid artery and approx 50% stenosis left internal carotid artery moderate to high grade short segment stenosis mid V4 segment left vertebral artery - SEPSIS Current Stage of Sepsis: Ruled out - FOLLOW UP Follow Up: PCP and Cardiology - TIME SPENT Time Spent in Discharge (Minutes): 35
[2020-04-18] MEDS ORDERED: REGADENOSON 0.4 MG/5 ML SYRINGE IVP ONE ×2 (11:28→15:33)
[2020-04-18] MEDS ORDERED: AMINOPHYLLINE 500 MG/20 ML VIAL ONE (11:28)
--- NOTE | 2020-04-18 17:31 | Discharge Plan ---
Discharge Plan Problem Reviewed?: Yes Disposition: Home, Self Care Condition: Stable Diet: Cardiac Activity Restrictions: Activity as Tolerated Shower Restrictions: No Driving Restrictions: No Health Concerns: You presented to the emergency room with chest pain that been going off and on for 3 weeks. It really got worse today and was better with rest and with nitro glycerin. You came to the emergency room and your EKG was the same as always, and your cardiac enzymes for heart attack were also negative. We spoke to your nursing executive who says that you have had several stress test and even had a coronary angiogram that was negative. Nevertheless, you have enough risk factors that you were placed in observation to make sure you were not having a heart attack. Your troponins continue to be negative, and your nuclear medicine stress test imaging stress test was completely negative. While we think that you do not have chest pain from hardening of the arteries, we do think that some of her chest pain is due to elevated blood pressure and anxiety. Your blood pressure can get as high as 200 systolic. Plan of Treatment: 1. Follow-up with your primary care provider in the next 2 to 3 weeks 2. No new medication changes 3. Check your blood pressure once a day and only once a day. Write it down in a diary and give that piece of paper to your primary care provider or nursing executive 4. Consider doing stress relaxation techniques for anxiety Care Goals: To be chest pain-free, and to control your blood pressure Assessment: Patient understands care goals. She is apprised at the idea that she may be anxious because she does not feel like she is "anxious". She promises to follow through. No Smoking: If you smoke, Please STOP! Call for help. Follow-up with: Sandra Garcia MD [Primary Care Provider] -
--- NOTE | 2020-04-18 17:31 | Nuclear Medicine Report ---
PROCEDURE: Rest and exercise myocardial perfusion SPECT with gated imaging and ejection fraction INDICATIONS: chest pain RADIOPHARMACEUTICAL: 14.1 mCi Tc-99m Myoview IV at rest and 50.1 mCi Tc-99m Myoview IV at peak exerc ise. Ayl-efo-lbrfdecc was performed. TECHNIQUE: Radiopharmaceutical was injected at peak stress test, and also at rest. SPECT images wer e obtained. SPECT myocardial perfusion images were displayed in short axis, horizontal long axis, an d vertical long axis views. Gated images were reviewed using [employer] software. COMPARISON: None available. CARDIAC STRESS: Hemodynamic data: There is normal blood pressure and heart rate response to exercise stress. Symptoms: Patient denied chest pain during stress. EKG: No diagnostic EKG changes of ischemia; no ectopy. FINDINGS: Raw data: There is good myocardial labeling by radiotracer. No significant motion artifacts. Lung- to-heart ratio is (normal is less than 0.38 for tetrafosmin tracer). Left ventricle function: Gated images demonstrate normal left ventricle wall thickening. No segment al wall motion abnormality. No transient ischemic dilation; TID is 1.1 (normal less than 1.3). The left ventricle resting end-diastolic volume is 64 mL. Left ventricle stress ejection fraction is 78% ; normal values are above 45%. Myocardial perfusion: There is normal distribution of activity in the left and right ventricular james cardium. No fixed or reversible perfusion defects. IMPRESSION: 1. No stress perfusion defects to indicate ischemia. 2. No EKG changes of ischemia. 3. Ejection fraction 78%. The above findings were discussed with Dr. Esme Richard on 04/18/2020 at 5:45 PM. PQRS ATTESTATIONS: Measure 322 - Is this imaging test primarily performed on a low-risk surgery patient for preoperative evaluation within 30 days preceding their low-risk non-cardiac surgery? Low-risk surgery is defined as cardiac or myocardial infarction less than 1%, including (but not limited to) endoscopic pr ocedures, superficial procedures, cataract surgery, and excisional breast surgery: Answer: No Measure 323 - Is this imaging test performed primarily for the monitoring of an asymptomatic patient who had percutaneous coronary intervention on the visit date or within 2 years of the visit date? An swer: No Measure 324 - Is this imaging test performed primarily for the initial detection and risk assessment on an asymptomatic, low coronary heart disease patient? Low CHD risk definition = clinicians should consider the maximum number of available patient factors used to estimate risk based on [place] (A TP III criteria), typically age, gender, diabetes, smoking status, and use of blood pressure medicati on, and integrate age appropriate estimates for missing elements, such as LDL or standard blood press ure. Answer: No Reviewed by: Opal Trujillo MD on 04/18/2020 5:29 PM PST Approved by: Opal Trujillo MD on 04/18/2020 5:29 PM PST Station ID: [id number]
[2020-04-18 17:54] VITALS: BP 185/74
--- NOTE | 2020-04-20 19:09 | CARDIAC PROCEDURE NOTE ---
Stress Test Report Service Date: 04/18/20 Service Time: 11:30 Ordering Provider: Esme Richard MD Indication for Test: chest pain Significant Medical History: 70 year old female with extensive past medical history including pacemaker placement for bradycardia and afib, congestive heart failure and hypertension admitted with a history of chest pain x 3 weeks, dizziness, fatigue and shortness of breath. She reports the chest pain has been present for approximately 3 weeks, 3-8/10, gradually getting worse. It is intermittent and crampy. Nothing helped make it better or worse at home but it was relieved with nitroglycerine in the ER. As it was not improving[place] to the ED. She also complains of dizziness and lightheadedness x3 weeks. She can't pinpoint what could be causing the dizziness and lightheadedness- sometimes it starts when she first stands up, sometimes it happens after she's been walking, and sometimes her legs give out. Additionally she reports SOB both at rest and on exertion. She is unable to walk farther than one block due to SOB, but she reports this is not new and a CT scan of her chest performed by her Rn Wound was negative. She has been compliant with all medications over the past year with exception of Oxybutynin or Crestor, as she does not like how she feels when she takes them and believes they cause her to have worse pain. Cardiac Risk Factors: Hypertension, age, hyperlipidemia, obstructive sleep apnea Type of Stress Test: Pharmacologic Stress Test with MPI Pharmacologic Agent: Lexiscan Procedure: The patient underwent pharmacologic stress testing with regadenoson. The heart rate at baseline was 63 bpm. Baseline blood pressure was 112/90. Baseline EKG had a paced atrial rhythm. Normal axis. No acute T wave changes. This is an unchanged EKG from previous EKGs. With injection, the heart rate yolie to 89 bpm. Blood pressure yolie to 139/61. This was a normal response. Symptoms included nausea, hot flash, but no chest pain. There were no ST segment changes consistent with myocardial ischemia with stress injection. The patient was then sent for resting and stress nuclear medicine views. Those were interpreted under separate evaluation.With the nuclear medicine imaging there was good myocardial labeling by radiotracer. No significant motion artifacts. Gated images demonstrated a normal left ventricle and wall thickening. No segmental wall motion abnormality. No transient ischemic dilation. Left ventricle stress ejection fraction was 78%. With myocardial perfusion there was normal distribution of the activity in the left and right ventricular myocardium. There were no fixed or reversible perfusion defects. Summary: Exercise tolerance unable to be assessed because of osteoarthritis of the knees. No ischemic changes by EKG criteria. Nuclear imaging report no fixed or reversible defects. Considering this patient has had several stress test as well as a coronary angiogram, would defer to cardiology about when a stress test would be appropriate when this patient presents with chest pain on repeated basis.
== END 2020-04-18 18:10 | disposition home or self-care (01) ==
LOC: ED 10:35 → MS2 14:11
PROVIDERS: ADMIT Specialist; ATTEND Specialist
DX: R07.89 Other chest pain (principal); I16.1 Hypertensive emergency; I10 Essential (primary) hypertension; R42 Dizziness and giddiness; R11.0 Nausea; R06.02 Shortness of breath; G44.209 Tension-type headache, unspecified, not intractable; G43.909 Migraine, unspecified, not intractable, without status migrainosus; I50.32 Chronic diastolic (congestive) heart failure; E78.00 Pure hypercholesterolemia, unspecified; E03.9 Hypothyroidism, unspecified; G47.33 Obstructive sleep apnea (adult) (pediatric); Z95.0 Presence of cardiac pacemaker; R39.81 Functional urinary incontinence; I65.23 Occlusion and stenosis of bilateral carotid arteries; Z20.822 Contact with and (suspected) exposure to COVID-19; Z86.73 Personal history of transient ischemic attack (TIA), and cerebral infarction without residual deficits; I48.91 Unspecified atrial fibrillation; Z79.899 Other long term (current) drug therapy
CPT/HCPCS: 36415; 70496; 70498; 71045; 78452; 80053; 80061; 83690; 83880; 84443; 84484; 85025; 87631; 93005; 93017; 96374; 99285; A9270; A9500; G0378; J2785; Q9967; 0202U; 83721

== ENCOUNTER 2020-06-25 15:23 | Outpatient (CLI) | payer MEDICARE, OTHER ==
--- NOTE | 2020-06-25 15:46 | SLEEP CARE CONSULTATION ---
Information from patient questionnaire entered by Claudia Faustin. I have reviewed and concur with the information entered by Claudia Faustin. This document represents the service I personally performed and the decisions made by , Oxana Ovalle ARNP. History of Present Illness Service Date and Time: 06/25/2020 1523 Previous diagnosis: Mild, Obstructive Sleep Apnea-Hypopnea Syndrome AHI: 10.7 Reason for follow up: annual (Last seen 06/2019) Equipment type: CPAP Equipment obtained from: [employer] (getting supplies as needed) Mask style: Nasal pillows Backup mask available: Yes (old mask) Last cushion change: 3-4 weeks ago Prior sleep studies: Yes Year and Where: 2007 [facility] additional information: [address] was diagnosed to have mild, AHI 10.7, obstructive sleep apnea- hypopnea syndrome and returned today for CPAP therapy annual follow-up. CPAP Compliance Data - Data Reviewed with Patient Average duration of nightly device use: 7 h 52 min Compliance rate %: 88.9 Current pressure setting (cmH2O): 6-10 Humidity settin Average residual AHI: 1.1 Average large leak: 1 min 9 sec Subjective Patient concerns: denies: aerophagia, mask discomfort, air blowing in eyes, mask leak noise, condensation in mask/hose, nasal congestion, dry mouth, nose, throat, epistaxis, other Observed to snore while using device: No Current pressure setting perceived as: comfortable On therapy, patient: reports: sleeping better, awakening more refreshed, being more awake and alert during the day, more rested overall. denies: drowsiness while driving Initial [place] Sleepiness Scale score: 20 (in 2009) Current [place] Sleepiness Scale score: 14 Allergies and Home Medications Home medication list reviewed: Yes Allergy and home medication list: Metroprolol Crestor Review of Systems Review of systems same as previous: Yes (no changes) Physical Exam Heart Rate: 60 O2 Saturation: 98 Height: 5 ft Weight: 255 lb Body Mass Index: 49.8 BMI Classification: Morbidly Obese Impression and Plan 1. Obstructive Sleep Apnea-Hypopnea Syndrome, mild, with good treatment compliance and good apnea control. On CPAP therapy, the patient has better sleep quality and is more rested overall. She has significant improvement of her apneas and is satisfied with her treatment. She has no concerns or issues with mask or machine use. Patient's apnea severity and rationale for treatment to reduce apnea, improve sleep quality and reduce cardiovascular and cerebrovascular events was reviewed. I also reviewed the benefit of consistent device use of CPAP for hypertension and cerebrovascular disease. * Continue autoCPAP pressure at 6-10 cmH2O * Notify me if snoring with mask or feeling that the pressure is too much or too little * Attempt to lose weight * Call this office if any problems using CPAP * Return for follow up in 1 year, or sooner if concerns arise Counseling Topics: Spare mask, Weight loss health impact Visit Type: In Office Time Spent with Patient (minutes): 12 Provider Statement: I spent 100% of the Face to Face Visit with the patient with greater than 50% spent counseling the patient and coordination of care.
== END 2020-06-25 15:24 | disposition home or self-care (01) ==
LOC: SC 15:23
PROVIDERS: ATTEND Nurse Practitioner Family
DX: G47.33 Obstructive sleep apnea (adult) (pediatric) (principal); E66.01 Morbid (severe) obesity due to excess calories; Z68.42 Body mass index [BMI] 45.0-49.9, adult
CPT/HCPCS: 99213; G0463; 99212

== ENCOUNTER 2021-01-12 08:00 | Outpatient (CLI) | payer MEDICARE, OTHER | END 2021-01-12 23:59 | disposition home or self-care (01) | LOC: LAB.N 08:00 | PROVIDERS: ATTEND Family Medicine | DX: R07.0 Pain in throat (principal); Z20.822 Contact with and (suspected) exposure to COVID-19 | CPT/HCPCS: 87070; U0004 ==

== ENCOUNTER 2021-08-24 14:15 | Outpatient (CLI) | payer MEDICARE, OTHER | END 2021-08-24 14:16 | disposition critical access hospital (66) | LOC: EMS 14:15 | DX: R51.9 Headache, unspecified (principal); H53.8 Other visual disturbances; R47.89 Other speech disturbances; R29.898 Other symptoms and signs involving the musculoskeletal system; U07.1 COVID-19 | CPT/HCPCS: A0425; A0429 ==

== ENCOUNTER 2021-08-24 14:55 | Emergency (ER) | payer MEDICARE, OTHER ==
[2021-08-24] MEDS ORDERED: SODIUM CHLORIDE 0.9% 1,000 ML IV STA (15:20)
--- NOTE | 2021-08-24 15:23 | ED Physician Documentation ---
History of Present Illness - Stated complaint Stated Complaint: C+ AMS - Chief complaint Chief Complaint: General - History obtained from History obtained from: Patient, EMS - History of Present Illness Timing: Today - Additonal information Additional information: 71-year-old unvaccinated female with a history of TIA and CHF, went to a graduation ceremony in [place] last week. She returned to [facility] on Tuesday and Tuesday she developed cough congestion and headache. She is tested positive for COVID. She feels better today than she did yesterday. She denies any fever. She isShe went to transfer money today and while she was standing in line she felt faint like she was going to pass out and felt spacey. Brought to the hospital for evaluation. She states that laying here in the gurney now she does not feel confused spacey or altered. She denies any fever associated with this denies any vomiting or diarrhea. She does admit to cough and congestion she denies any sputum production or shortness of breath. Review of Systems Constitutional: denies: Fever Eyes: denies: Decreased vision Ears: denies: Ear pain Nose: reports: Rhinorrhea / runny nose, Congestion Throat: reports: Sore throat Cardiac: denies: Chest pain / pressure, Palpitations Respiratory: reports: Cough. denies: Dyspnea GI: denies: Vomiting, Diarrhea : denies: Dysuria, Frequency Skin: denies: Rash Musculoskeletal: denies: Neck pain, Back pain, Extremity pain Neurologic: reports: Near syncope, Altered mental status. denies: Generalized weakness, Focal weakness, Numbness, Difficulty speaking PD PAST MEDICAL HISTORY - Past Medical History Cardiovascular: Congestive heart failure, Hypertension, High cholesterol, Arrhythmia, Other Respiratory: Sleep apnea, CPAP use Neuro: TIA, Migraines, Peripheral neuropathy, Fainting Endocrine/Autoimmune: HyPOthyroidism GI: Colon polyps, Chronic constipation, Hemorrhoids : Incontinence, Chronic bladder infection, Frequency, Kidney stones, Other HEENT: Chronic vision loss, Chronic sinusitis, Other Psych: Anxiety, Panic attacks, Claustrophobia Musculoskeletal: Osteoarthritis, Fibromyalgia, Osteoporosis, Gout, Fatigue, Chronic back pain, Other Derm: Eczema, Other - Past Surgical History Past Surgical History: Yes General: Colonoscopy, Other Ortho: Carpal Tunnel surgery, Spine surgery, 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05% Crm] Desonide 1 applic TP ONCE PRN 11/17/18 04/17/20 Escitalopram [Lexapro] 10 mg PO DAILY 11/17/18 04/17/20 Fluticasone [Flonase] 1 sprays LUCIA DAILY PRN 11/17/18 04/17/20 Loratadine [Claritin] 10 mg PO DAILY PRN 11/17/18 04/17/20 Losartan Potassium 25 mg PO BID 11/17/18 04/17/20 Lysine [l-Lysine] 500 mg PO BID 11/17/18 04/17/20 Magnesium Sulfate 100 mg PO QPM 11/17/18 04/17/20 Olopatadine HCl [Patanol] 5 ml OP PRN PRN 11/17/18 04/17/20 Pimecrolimus [Elidel] 1 applic TP PRN PRN 11/17/18 04/17/20 hydroCHLOROthiazide 12.5 mg PO DAILY 11/17/18 04/17/20 [Hydrochlorothiazide] Ondansetron Odt [Zofran Odt] 4 mg TL Q6H PRN #10 tablet 01/09/19 04/17/20 Levothyroxine Sodium 50 mcg PO DAILY 05/05/19 04/17/20 Metoprolol Succinate [Toprol Xl] 25 mg PO QPM 05/05/19 04/17/20 Montelukast [Singulair] 10 mg PO QPM 04/17/20 04/17/20 - Allergies Allergies/Adverse Reactions: Allergies Allergy/AdvReac Type Severity Reaction Status Date / Time pseudoephedrine Allergy Severe Anaphylaxis Verified 08/24/21 15:01 codeine Allergy Intermediate Nausea Verified 08/24/21 15:01 tetracycline [Tetracycline] Allergy Intermediate Hives Verified 08/24/21 15:01 duloxetine Allergy Rash Verified 08/24/21 15:01 ciprofloxacin [From Cipro] AdvReac due to Verified 08/24/21 15:01 achilles tendon levofloxacin [From Levaquin] AdvReac due to Verified 08/24/21 15:01 achilles tendon lisinopril AdvReac Respiratory Verified 08/24/21 15:01 - Social History Does the pt smoke?: No Smoking Status: Never smoker Does the pt drink ETOH?: No Does the pt have substance abuse?: No - Immunizations Immunizations are current?: Yes - POLST Patient has POLST: No POLST Status: Full Code PD ED PE NORMAL - Vitals Vital signs reviewed: Yes (hypertenisve ) - General General: Alert and oriented X 3, No acute distress, Well developed/nourished, Other (I do not any appreciate any speech latency or delay in execution of motor commands currently.) - HEENT HEENT: Atraumatic, PERRL, EOMI - Neck Neck: Supple, no meningeal sign, No bony TTP - Cardiac Cardiac: RRR, No murmur - Respiratory Respiratory: No respiratory distress, Clear bilaterally - Abdomen Abdomen: Normal bowel sounds, Soft, Non tender, Non distended, No organomegaly - Back Back: No CVA TTP, No spinal TTP - Derm Derm: Normal color, Warm and dry - Extremities Extremities: No deformity, No edema - Neuro Neuro: Alert and oriented X 3, 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, No motor deficit, No sensory deficit, Normal speech Eye Opening: Spontaneous Motor: Obeys Commands Verbal: Oriented GCS Score: 15 - Psych Psych: Normal mood, Normal affect Results - Vitals Vitals: Vital Signs - 24 hr 08/24/21 08/24/21 15:02 16:03 Temperature 36.8 C Heart Rate 67 60 Respiratory 16 18 Rate Blood Pressure 159/93 H 108/82 H O2 Saturation 98 93 Oxygen O2 Source Room air - Labs Labs: Laboratory Tests 08/24/21 08/24/21 08/24/21 15:26 15:26 15:26 WBC 3.9 L RBC 4.34 Hgb 12.8 Hct 40.7 MCV 93.8 MCH 29.5 MCHC 31.4 L RDW 13.9 Plt Count 264 MPV 9.0 Neut # (Auto) 2.3 Lymph # (Auto) 1.2 L Appling # (Auto) 0.4 Eos # (Auto) 0.0 Baso # (Auto) 0.0 Absolute Nucleated RBC 0.00 Nucleated RBC % 0.0 Sodium 141 Potassium 3.8 Chloride 102 Carbon Dioxide 29 Anion Gap 10.0 BUN 19 Creatinine 0.8 Estimated GFR (MDRD) 71 L Glucose 140 H Calcium 9.2 Total Bilirubin 0.2 AST 44 H ALT 36 Alkaline Phosphatase 159 H B-Natriuretic Peptide 53 Total Protein 7.5 Albumin 3.9 Globulin 3.6 Albumin/Globulin Ratio 1.1 Lipase 33 - Rads (name of study) chest Radiology: Prelim report reviewed (Impression cardiomegaly with mild increased vascularity suggestive of edema.), EMP read indepedently, See rad report Procedures - IVC sono (time) 1520 Bedside IVC sono: IVC measures (cm) (1.11), Dehydration (est >1 liter deficit) PD MEDICAL DECISION MAKING - ED course Complexity details: reviewed old records, reviewed results, re-evaluated patient , considered differential, d/w patient ED course: 71-year-old female with a history of TIA presents with new onset of COVID she feels that she is not symptomatic from the COVID like she was yesterday but today she is feeling "spacey "she is found to be dehydrated on interrogation the inferior vena cava. Laying in the gurney she is not having issue. We are providing intravenous saline. Departure - Departure Disposition: 01 Home, Self Care Clinical Impression: COVID, Dehydration Condition: Stable Instructions: ED Dehydration, COVID-19 [facility], Flu and Cold: Nutrition, Prevention and Treatment Tips Follow-Up: TRENT MOON MD [Primary Care Provider] - Comments: Ngoc, today it looks like there is no significant involvement with your lungs regarding the COVID. We did find that your dehydrated and we have provided additional hydration. Recommendation is to stay hydrated take Tylenol to treat fever and reduce your level of activity.
[2021-08-24 15:42] LABS: BASOPHILS % (AUTO) 0.3 %; EOSINOPHILS % (AUTO) 0.5 %; HCT - HEMATOCRIT 40.7 % (37.0-47.0); HGB - HEMOGLOBIN 12.8 g/dL (12.0-16.0); LYMPHOCYTES # (AUTO) 1.2 10^3/uL (1.5-3.5); LYMPHOCYTES % (AUTO) 30.2 %; MEAN CORPUSCULAR HEMOGLOBIN 29.5 pg (27.0-31.0); MEAN CORPUSCULAR HGB CONC 31.4 g/dL (32.0-36.0); MEAN CORPUSCULAR VOLUME 93.8 fL (81.0-99.0); MONOCYTES # (AUTO) 0.4 10^3/uL (0.0-1.0); MONOCYTES % (AUTO) 10.3 %; NEUTROPHILS # (AUTO) 2.3 10^3/uL (1.5-6.6); NEUTROPHILS % (AUTO) 58.4 %; PLT - PLATELET COUNT 264 10^3/uL (130-450); RED BLOOD COUNT 4.34 10^6/uL (4.20-5.40); RED CELL DISTRIBUTION WIDTH 13.9 % (12.0-15.0); WHITE BLOOD COUNT 3.9 x10^3/uL (4.8-10.8)
[2021-08-24 15:52] LABS: ALBUMIN 3.9 g/dL (3.2-5.5); ALBUMIN/GLOBULIN RATIO 1.1 (1.0-2.2); BILIRUBIN,TOTAL 0.2 mg/dL (0.2-1.0); CALCIUM 9.2 mg/dL (8.5-10.3); CREATININE 0.8 mg/dL (0.4-1.0); POTASSIUM 3.8 mmol/L (3.5-5.0); TOTAL PROTEIN 7.5 g/dL (6.7-8.2)
--- NOTE | 2021-08-24 15:54 | XRAY Report ---
PROCEDURE: Chest 1 View X-Ray INDICATIONS: chest pain TECHNIQUE: One view of the chest was acquired. COMPARISON: Chest x-ray 04/17/2020 FINDINGS: Surgical changes and devices: Pacemaker. Lungs and pleura: Mild appearance of increased pulmonary vascularity is present. Mediastinum: Mediastinal contours appear normal. Heart size is enlarged. Bones and chest wall: No suspicious bony lesions. Overlying soft tissues appear unremarkable. IMPRESSION: Cardiomegaly with mild increased vascularity suggestive of edema. Reviewed by: Opal Trujillo MD on 08/24/2021 3:52 PM PDT Approved by: Opal Trujillo MD on 08/24/2021 3:52 PM PDT Station ID: [id number]
[2021-08-24 17:33] VITALS: BP 161/92
== END 2021-08-24 17:40 | disposition home or self-care (01) ==
LOC: EDUNIT# → ED 14:55
DX: U07.1 COVID-19 (principal); E86.0 Dehydration; I11.0 Hypertensive heart disease with heart failure; I50.9 Heart failure, unspecified
CPT/HCPCS: 36415; 80053; 83690; 83880; 85025; 96360; 99282

== ENCOUNTER 2021-09-10 08:17 | Outpatient (CLI) | payer MEDICARE, OTHER ==
[2021-09-10 09:07] VITALS: BP 125/81
--- NOTE | 2021-09-10 09:07 | SLEEP CARE CONSULTATION ---
Information from patient questionnaire entered by Dorothy Wright MA. I have reviewed and concur with the information entered by Dorothy Wright MA. This document represents the service I personally performed and the decisions made by , Oxana Ovalle ARNP. History of Present Illness Service Date and Time: 09/10/2021 0817 Previous diagnosis: Mild, Obstructive Sleep Apnea-Hypopnea Syndrome AHI: 10.7 Reason for follow up: annual (LAST SEEN 06/25/2020, TON, [facility]KEON 04/05/2018, ) Equipment type: CPAP Equipment obtained from: [employer] (getting supplies as needed) Mask style: Nasal pillows Mask brand: Resmed Backup mask available: Yes (old mask) Last cushion change: 2 weeks ago Prior sleep studies: Yes Year and Where: 2007 [facility] additional information: [address] was diagnosed to have mild, AHI 10.7, obstructive sleep apnea- hypopnea syndrome and returned today for CPAP therapy annual follow-up. Sleep Study - Results Prior sleep studies: Yes Year and Where: 2007 [facility] CPAP Compliance Data - Data Reviewed with Patient Average duration of nightly device use: 8 HOURS 49 MINUTES Compliance rate %: 88.9 (03/12/21-09/07/21; 180 days; 175/180 days used) Current pressure setting (cmH2O): 6-10 Humidity settin Heated hose setting: OFF Average residual AHI: 1.2 Average large leak: 34 SECONDS Subjective Missed days of use due to: reports: illness (chronic pain disrupts her sleep), travel, other (power outage) Patient concerns: denies: aerophagia, mask discomfort, air blowing in eyes, mask leak noise, condensation in mask/hose, nasal congestion, dry mouth, nose, throat, epistaxis, other Observed to snore while using device: No Current pressure setting perceived as: comfortable On therapy, patient: reports: sleeping better, awakening more refreshed, being more awake and alert during the day, more rested overall. denies: drowsiness while driving Initial [place] Sleepiness Scale score: 20 (in 2009) Current [place] Sleepiness Scale score: 15 (09/10/21) Allergies and Home Medications Home medication list reviewed: Yes (no changes) Allergy and home medication list: Allergies pseudoephedrine Allergy (Severe, Verified 08/24/21 15:01) Anaphylaxis codeine Allergy (Intermediate, Verified 08/24/21 15:01) Nausea and itching tetracycline [Tetracycline] Allergy (Intermediate, Verified 08/24/21 15:01) Hives duloxetine Allergy (Verified 08/24/21 15:01) Rash ciprofloxacin [From Cipro] Adverse Reaction (Verified 08/24/21 15:01) due to achilles tendon levofloxacin [From Levaquin] Adverse Reaction (Verified 08/24/21 15:) due to achilles tendon lisinopril Adverse Reaction (Verified 08/24/21 15:01) Respiratory Review of Systems Review of systems same as previous: Yes (no changes) Physical Exam Vital signs obtained and entered by: Romario WRIGHT CMA AACECILY Blood Pressure: 125/81 (RIGHT) Heart Rate: 70 O2 Saturation: 97 Height: 5 ft Weight: 241 lb 3.2 oz Weight change since last visit: 14 lbs loss Body Mass Index: 47.1 BMI Classification: Morbidly Obese Impression and Plan 1. Obstructive Sleep Apnea-Hypopnea Syndrome, mild, with good treatment compliance and good apnea control. On CPAP therapy, the patient has better sleep quality and is more rested overall. Patient denies problems with oral dryness, nasal congestion, epistaxis, skin irritation or aerophagia. Patient's apnea severity and rationale for treatment to reduce apnea, improve sleep quality and reduce cardiovascular and cerebrovascular events was reviewed. I also reviewed the benefit of consistent device use of CPAP for hypertension and cerebrovascular disease. 2. Obesity, unspecified. Patient has lost weight. Currently patients BMI is 47.1. Obesity increases the risk of apnea, CPAP pressure requirements and overall health risks especially cardiovascular and diabetes. Thus patient is advised to continue to try to lose weight. Weight loss can be done with reducing portion size, reducing refined foods and balancing content with vegetables, fruit and whole grain foods. In addition, patient encouraged to get regular exercise. The patient's CPAP pressure range should accommodate some weight loss. * Continue auto CPAP pressure at 6-10 cmH2O * Notify me if snoring with mask or feeling that the pressure is too much or too little * Attempt to lose weight * Call this office if any problems using CPAP * Return for follow up in 1 year, or sooner if concerns arise Counseling Topics: Spare mask, Weight loss health impact Visit Type: In Office Time Spent with Patient (minutes): 23 Provider Statement: I spent 100% of the Face to Face Visit with the patient with greater than 50% spent counseling the patient and coordination of care.
== END 2021-09-10 08:18 | disposition home or self-care (01) ==
LOC: SC 08:17
PROVIDERS: ATTEND Nurse Practitioner Family
DX: G47.33 Obstructive sleep apnea (adult) (pediatric) (principal); E66.01 Morbid (severe) obesity due to excess calories; Z68.42 Body mass index [BMI] 45.0-49.9, adult
CPT/HCPCS: 99213; G0463; 99212

== ENCOUNTER 2021-12-07 10:08 | Outpatient (CLI) | payer MEDICARE, OTHER ==
[2021-12-07 12:07] LABS: BASOPHILS % (AUTO) 0.4 %; EOSINOPHILS # (AUTO) 0.4 10^3/uL (0.0-0.7); EOSINOPHILS % (AUTO) 5.4 %; HCT - HEMATOCRIT 37.7 % (37.0-47.0); HGB - HEMOGLOBIN 12.2 g/dL (12.0-16.0); LYMPHOCYTES # (AUTO) 2.2 10^3/uL (1.5-3.5); LYMPHOCYTES % (AUTO) 32.4 %; MEAN CORPUSCULAR HGB CONC 32.4 g/dL (32.0-36.0); MEAN CORPUSCULAR VOLUME 92.9 fL (81.0-99.0); MEAN PLATELET VOLUME 9.5 fL (7.9-10.8); MONOCYTES # (AUTO) 0.5 10^3/uL (0.0-1.0); MONOCYTES % (AUTO) 7.4 %; NEUTROPHILS # (AUTO) 3.7 10^3/uL (1.5-6.6); NEUTROPHILS % (AUTO) 54.1 %; PLT - PLATELET COUNT 314 10^3/uL (130-450); RED BLOOD COUNT 4.06 10^6/uL (4.20-5.40); WHITE BLOOD COUNT 6.9 x10^3/uL (4.8-10.8)
[2021-12-07 12:58] LABS: ALBUMIN 3.8 g/dL (3.2-5.5); ALBUMIN/GLOBULIN RATIO 1.1 (1.0-2.2); ALKALINE PHOSPHATASE 149 IU/L (42-121); ALT ALANINE AMINOTRANSFERASE 24 IU/L (10-60); AST ASPARTATE AMINOTRANSFERASE 21 IU/L (10-42); BILIRUBIN,TOTAL 0.7 mg/dL (0.2-1.0); BUN - BLOOD UREA NITROGEN 19 mg/dL (6-20); CALCIUM 9.4 mg/dL (8.5-10.3); CARBON DIOXIDE - CO2 30 mmol/L (21-32); CHLORIDE 104 mmol/L (101-111); CHOL/HDL RATIO 4.3 (<4.4); CHOLESTEROL 184 mg/dL; CREATININE 0.7 mg/dL (0.4-1.0); GFR - MDRD 82 (>89); GLUCOSE 109 mg/dL (70-100); HDL CHOLESTEROL 43 mg/dL; LDL CHOLESTEROL,CALCULATED 119 mg/dL; LDL/HDL RATIO 2.8 (<4.4); POTASSIUM 4.3 mmol/L (3.5-5.0); SODIUM 142 mmol/L (135-145); TOTAL PROTEIN 7.2 g/dL (6.7-8.2); TRIGLYCERIDES 111 mg/dL; URIC ACID 6.6 mg/dL (2.6-7.2); VLDL CHOLESTEROL 22 mg/dL
[2021-12-07 13:08] LABS: THYROID STIMULATING HORMONE 1.3 uIU/mL (0.34-5.60)
[2021-12-07 13:09] LABS: FREE T3 2.96 pg/mL (2.5-3.9)
[2021-12-07 13:10] LABS: FREE T4 (FREE THYROXINE) 0.76 ng/dL (0.58-1.64)
== END 2021-12-07 10:09 | disposition home or self-care (01) ==
LOC: LAB.N 10:08
PROVIDERS: ATTEND Family Medicine
DX: I10 Essential (primary) hypertension (principal); M48.00 Spinal stenosis, site unspecified; E03.9 Hypothyroidism, unspecified; G43.909 Migraine, unspecified, not intractable, without status migrainosus; M10.9 Gout, unspecified; M79.7 Fibromyalgia; F32.A Depression, unspecified
CPT/HCPCS: 36415; 80053; 80061; 83721; 84439; 84443; 84481; 84550; 85025

== ENCOUNTER 2022-06-02 16:26 | Outpatient (CLI) | payer MEDICARE, OTHER ==
--- NOTE | 2022-06-02 17:33 | Ultrasound Report ---
PROCEDURE: Head or Neck Soft Tissue INDICATIONS: THYROID CA TECHNIQUE: Real-time scanning was performed of the thyroid gland, with image documentation. COMPARISON: CT angiogram neck 04/17/2020. FINDINGS: Right: Thyroid lobe measures 3.7 x 2.2 x 1.1 cm, and is homogeneous in echotexture. Left: Absent. No mass seen. Isthmus: 5 mm thick. Nodule number: One Location: Right inferior Size: 1.7 x 1.1 x 0.7 cm. Composition: Solid Echogenicity: Hypoechoic Shape: wider than tall. Margins: Smooth Echogenic foci: None Total points: 4 ACR TI-RADS category: TR 4, moderately suspicious Nodule number: Two Location: Isthmus Size: 0.8 x 0.8 x 0.5 cm. Composition: Solid Echogenicity: Isoechoic Shape: wider than tall. Margins: Smooth Echogenic foci: None Total points: 3 ACR TI-RADS category: TR 3, mildly suspicious IMPRESSION: 1. Right inferior thyroid nodule measuring 1.7 cm. TR 4, moderately suspicious. Recommend FNA. 2. No mass in the left thyroidectomy bed. ACR TI-RADS definitions and recommendations: TI-RADS 1 (benign): 0 points. FNA not needed. TI-RADS 2 (not suspicious): 2 points. FNA not needed. TI-RADS 3 (mildly suspicious): 3 points. "FNA if 2.5 cm or larger, follow up if 1.5 cm or larger (at 1, 3, and 5 years). TI-RADS 4 (moderately suspicious): 4-6 points. "FNA if 1.5 cm or larger, follow up if 1 cm or larger (at 1, 2, 3, and 5 years). TI-RADS 5 (highly suspicious): 7 points or more. "FNA if 1 cm or larger, follow up if 0.5 cm or larger (every year for 5 years). Reviewed by: Valdemar Dalton MD on 06/02/2022 5:31 PM PDT Approved by: Valdemar Dalton MD on 06/02/2022 5:31 PM PDT Station ID: [id number]
== END 2022-06-02 16:27 | disposition home or self-care (01) ==
LOC: DI 16:26
PROVIDERS: ATTEND Family Medicine
DX: C73 Malignant neoplasm of thyroid gland (principal); E04.1 Nontoxic single thyroid nodule

== ENCOUNTER 2022-06-23 09:51 | Outpatient (CLI) | payer MEDICARE, OTHER ==
[~2022-06-23 09:51] MED LIST changes: -CEFAZOLIN SODIUM IN 0.9 % NACL 2 GM/100 ML BAG IV ONE; +LIDOCAINE-MPF 1% 5 ML VIAL ONE
--- NOTE | 2022-06-23 12:18 | Ultrasound Report ---
PROCEDURE: Head or Neck Soft Tissue INDICATIONS: THYROID ADENOMA TECHNIQUE: Real-time scanning was performed of the thyroid gland, with image documentation. COMPARISON: Ultrasound 06/02/2022 FINDINGS: Real-time evaluation of the thyroid was performed for biopsy planning. On today's exam, the thyroid n odule appears smaller, measuring 1.0 x 0.6 x 0.9 cm. Tiny cystic spaces were seen within the lesion, with a couple foci of colloid. Given the decrease in size and less suspicious features, a decision wa s made not to perform the FNA. IMPRESSION: FNA not performed due to reasons above. Recommend 6 month follow-up for reevaluation. Reviewed by: Bj De on 06/23/2022 12:16 PM PDT Approved by: Bj De on 06/23/2022 12:16 PM PDT Station ID: [id number]
== END 2022-06-23 09:52 | disposition home or self-care (01) ==
LOC: DI 09:51
PROVIDERS: ATTEND Family Medicine
DX: D34 Benign neoplasm of thyroid gland (principal)

== ENCOUNTER 2022-07-14 22:53 | Outpatient (CLI) | payer MEDICARE, OTHER | END 2022-07-14 22:54 | disposition critical access hospital (66) | LOC: EMS 22:53 | DX: S00.03XA Contusion of scalp, initial encounter (principal); M54.2 Cervicalgia; R42 Dizziness and giddiness; W18.30XA Fall on same level, unspecified, initial encounter; Y92.009 Unspecified place in unspecified non-institutional (private) residence as the place of occurrence of the external cause | CPT/HCPCS: A0425; A0429 ==

== ENCOUNTER 2022-07-14 23:17 | Emergency (ER) | payer MEDICARE, OTHER ==
[2022-07-14 23:29] LABS: BASOPHILS % (AUTO) 0.4 %; EOSINOPHILS # (AUTO) 0.4 10^3/uL (0.0-0.7); EOSINOPHILS % (AUTO) 4.5 %; HGB - HEMOGLOBIN 12.1 g/dL (12.0-16.0); LYMPHOCYTES # (AUTO) 2.8 10^3/uL (1.5-3.5); LYMPHOCYTES % (AUTO) 28.4 %; MEAN CORPUSCULAR HEMOGLOBIN 28.8 pg (27.0-31.0); MEAN CORPUSCULAR VOLUME 92.9 fL (81.0-99.0); MEAN PLATELET VOLUME 9.2 fL (7.9-10.8); MONOCYTES # (AUTO) 0.6 10^3/uL (0.0-1.0); MONOCYTES % (AUTO) 6.3 %; NEUTROPHILS # (AUTO) 5.9 10^3/uL (1.5-6.6); PLT - PLATELET COUNT 317 10^3/uL (130-450); RED CELL DISTRIBUTION WIDTH 14.2 % (12.0-15.0); WHITE BLOOD COUNT 9.9 x10^3/uL (4.8-10.8)
[2022-07-14 23:50] LABS: ALBUMIN 3.7 g/dL (3.2-5.5); ALBUMIN/GLOBULIN RATIO 1.2 (1.0-2.2); BILIRUBIN,TOTAL 0.4 mg/dL (0.2-1.0); CALCIUM 9.4 mg/dL (8.5-10.3); CREATININE 0.7 mg/dL (0.4-1.0); POTASSIUM 4.1 mmol/L (3.5-5.0); TOTAL PROTEIN 6.9 g/dL (6.7-8.2)
[2022-07-15] MEDS ORDERED: ONDANSETRON 4 MG/2 ML VIAL IVP PRN
--- NOTE | 2022-07-15 00:01 | ED Physician Documentation ---
History of Present Illness - Stated complaint Stated Complaint: GLF, HIT HEAD, DIZZY - Chief complaint Chief Complaint: Trauma Hd/Nk - History obtained from History obtained from: Patient - Additonal information Additional information: 72-year-old woman presented bibems s/p fall after bending to greens picker a dog toy, becoming lightheaded, and falling the ground hitting head. she Was a modified trauma due to history of A-fib on Eliquis. Patient denies LOC. Does have some new pain to the back of the head. Also with chronic neck and back pain but not worsening compared to her usual. Patient did have neck surgery 1 year ago PD PAST MEDICAL HISTORY - Past Medical History Cardiovascular: Congestive heart failure, Hypertension, High cholesterol, Arrhythmia, Other Respiratory: Sleep apnea, CPAP use Neuro: TIA, Migraines, Peripheral neuropathy, Fainting Endocrine/Autoimmune: HyPOthyroidism GI: Colon polyps, Chronic constipation, Hemorrhoids : Incontinence, Chronic bladder infection, Frequency, Kidney stones, Other HEENT: Chronic vision loss, Chronic sinusitis, Other Psych: Anxiety, Panic attacks, Claustrophobia Musculoskeletal: Osteoarthritis, Fibromyalgia, Osteoporosis, Gout, Fatigue, Chronic back pain, Other Derm: Eczema, Other - Past Surgical History Past Surgical History: Yes General: Colonoscopy, Other Ortho: Carpal Tunnel surgery, Spine surgery, 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: 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05% Crm] Desonide 1 applic TP ONCE PRN 11/17/18 04/17/20 Escitalopram [Lexapro] 10 mg PO DAILY 11/17/18 04/17/20 Fluticasone [Flonase] 1 sprays LUCIA DAILY PRN 11/17/18 04/17/20 Loratadine [Claritin] 10 mg PO DAILY PRN 11/17/18 04/17/20 Losartan Potassium 25 mg PO BID 11/17/18 04/17/20 Lysine [l-Lysine] 500 mg PO BID 11/17/18 04/17/20 Magnesium Sulfate 100 mg PO QPM 11/17/18 04/17/20 Olopatadine HCl [Patanol] 5 ml OP PRN PRN 11/17/18 04/17/20 Pimecrolimus [Elidel] 1 applic TP PRN PRN 11/17/18 04/17/20 hydroCHLOROthiazide 12.5 mg PO DAILY 11/17/18 04/17/20 [Hydrochlorothiazide] Ondansetron Odt [Zofran Odt] 4 mg TL Q6H PRN #10 tablet 01/09/19 04/17/20 Levothyroxine Sodium 50 mcg PO DAILY 05/05/19 04/17/20 Metoprolol Succinate [Toprol Xl] 25 mg PO QPM 05/05/19 04/17/20 Montelukast [Singulair] 10 mg PO QPM 04/17/20 04/17/20 - Allergies Allergies/Adverse Reactions: Allergies Allergy/AdvReac Type Severity Reaction Status Date / Time pseudoephedrine Allergy Severe Anaphylaxis Verified 08/24/21 15:01 codeine Allergy Intermediate Nausea Verified 08/24/21 15:01 tetracycline [Tetracycline] Allergy Intermediate Hives Verified 08/24/21 15:01 latex Allergy Unknown Unknown Verified 07/14/22 23:28 phenylpropanolamine Allergy Unknown Unknown Verified 07/14/22 23:28 carvedilol Allergy Unknown Verified 07/14/22 23:27 duloxetine Allergy Rash Verified 08/24/21 15:01 ciprofloxacin [From Cipro] AdvReac due to Verified 08/24/21 15:01 achilles tendon levofloxacin [From Levaquin] AdvReac due to Verified 08/24/21 15:01 achilles tendon lisinopril AdvReac Respiratory Verified 08/24/21 15:01 - Social History Does the pt smoke?: No Smoking Status: Never smoker Does the pt drink ETOH?: No Does the pt have substance abuse?: No - Immunizations Immunizations are current?: Yes - POLST Patient has POLST: No POLST Status: Full Code PD ED PE NORMAL - Vitals Vital signs reviewed: Yes - General General: Alert and oriented X 3, No acute distress, Well developed/nourished - HEENT HEENT: Atraumatic, PERRL, EOMI - Neck Neck: Other (Cervical spine tender to palpation. C-spine in place.) - Cardiac Cardiac: RRR - Respiratory Respiratory: No respiratory distress, Clear bilaterally - Abdomen Abdomen: Non tender, Non distended - Back Back: No spinal TTP - Derm Derm: Normal color, Warm and dry - Extremities Extremities: Normal ROM s pain - Neuro Neuro: No motor deficit, No sensory deficit - Psych Psych: Normal mood, Normal affect Results - Vitals Vitals: Vital Signs - 24 hr 07/14/22 07/14/22 07/14/22 23:23 23:26 23:56 Temperature 37.0 C Heart Rate 70 60 59 L Heart Rate [ Sitting] Heart Rate [ Standing] Heart Rate [ Supine] Respiratory 16 16 16 Rate Blood Pressure 153/89 H 149/67 H 151/51 H Blood Pressure [Sitting] Blood Pressure [Standing] Blood Pressure [Supine] O2 Saturation 99 99 99 07/15/22 07/15/22 00:00 00:56 Temperature Heart Rate 62 Heart Rate [ 59 L Sitting] Heart Rate [ 71 Standing] Heart Rate [ 58 L Supine] Respiratory 15 Rate Blood Pressure 165/84 H Blood Pressure 166/79 H [Sitting] Blood Pressure 165/84 H [Standing] Blood Pressure 147/73 H [Supine] O2 Saturation 100 Oxygen O2 Source Room air - EKG (time done) 8263 EKG releavant findings:: EKG personally interpreted by author of this note. Relevant findings are: Rate: Rate (enter#) (60) Rhythm: NSR [place]: Normal Intervals: Other ([place]) QRS: Normal Ischemia: Normal ST segments - Labs Labs: Laboratory Tests 07/14/22 07/14/22 23:21 23:21 WBC 9.9 RBC 4.20 Hgb 12.1 Hct 39.0 MCV 92.9 MCH 28.8 MCHC 31.0 L RDW 14.2 Plt Count 317 MPV 9.2 Neut # (Auto) 5.9 Lymph # (Auto) 2.8 [place] # (Auto) 0.6 Eos # (Auto) 0.4 Baso # (Auto) 0.0 Absolute Nucleated RBC 0.00 Nucleated RBC % 0.0 Sodium 142 Potassium 4.1 Chloride 104 Carbon Dioxide 28 Anion Gap 10.0 BUN 24 H Creatinine 0.7 Estimated GFR (MDRD) 82 L Glucose 160 H Calcium 9.4 Total Bilirubin 0.4 AST 23 ALT 26 Alkaline Phosphatase 137 H Total Protein 6.9 Albumin 3.7 Globulin 3.2 Albumin/Globulin Ratio 1.2 Lipase 38 PD Medical Decision Making - ED course ED course: 72-year-old woman presented as a modified trauma status post fall on [employer] w ith head trauma but no LOC. She did experience lightheadedness that was positional in nature. She has benign EKG and no concerning findings on cardiac monitoring in the ED. CBC, abdominal panel ordered. CT head and c spine ordered. c collar in place. CT head and C-spine unremarkable. C-spine cleared. CXR mild pulm vascular congestion. CBC and abdominal panel unremarkable. Departure - Departure Clinical Impression: Head injury, Fall from standing, Lightheadedness
--- NOTE | 2022-07-15 00:16 | CT Report ---
PROCEDURE: HEAD WO INDICATIONS: fall +HT on eliquis TECHNIQUE: Noncontrast 4.5 mm thick angled axial sections acquired from the foramen magnum to the vertex. For r adiation dose reduction, the following was used: automated exposure control, adjustment of mA and/or kV according to patient size. COMPARISON: CT angiogram head 04/17/2020. FINDINGS: Image quality: Excellent. CSF spaces: Basal cisterns are patent. No extra-axial fluid collections. Ventricles are normal in size and shape. Brain: No intracranial hemorrhage, mass, or mass effect. Jones-white matter interface appears preser yaneth. Skull and face: Calvarium and visualized facial bones are intact, without suspicious lesions. Sinuses: Visualized sinuses and mastoids are clear. IMPRESSION: 1. No acute intracranial abnormality. Reviewed by: Aris Tejada MD on 07/15/2022 12:14 AM PDT Approved by: Aris Tejada MD on 07/15/2022 12:14 AM PDT Station ID: [id number]
--- NOTE | 2022-07-15 00:24 | CT Report ---
PROCEDURE: CERVICAL SPINE WO INDICATIONS: fall from standing TECHNIQUE: Noncontrast 3 mm thick sections acquired from the skull base to the T4 level. Sagittal and coronal r eformats were then constructed. For radiation dose reduction, the following was used: automated exp osure control, adjustment of mA and/or kV according to patient size. COMPARISON: CT angiogram neck 04/17/2020. FINDINGS: Image quality: There is metallic streak artifact from patient's surgical hardware. Bones: No fractures or subluxation. There are postsurgical changes redemonstrated including disc pro stheses at C5-C6 and C6-C7 as well as a fixation device at C4-C5. There is also surgical hardware kitty ng the biceps posteriorly at C6-C7. Visualized superior ribs are intact. Soft tissues: Prevertebral soft tissues are normal in thickness. No paravertebral hematomas. No ap ical pneumothoraces. IMPRESSION: 1. No acute fracture or subluxation. 2. Postsurgical changes in the mid and lower cervical spine as described. Reviewed by: Aris Tejada MD on 07/15/2022 12:23 AM PDT Approved by: Aris Tejada MD on 07/15/2022 12:23 AM PDT Station ID: [id number]
--- NOTE | 2022-07-15 00:27 | XRAY Report ---
PROCEDURE: Chest 1 View X-Ray INDICATIONS: Chest Pain TECHNIQUE: One view of the chest was acquired. COMPARISON: Chest x-ray 08/24/2021. CT cervical spine 08/10/2022. FINDINGS: Surgical changes and devices: Left chest wall dual-lead pacemaker appears similar in position. Posts urgical hardware also noted within the lower cervical spine. Lungs and pleura: No pleural effusions or pneumothorax. Mild pulmonary vascular prominence demonstra cj compatible with mild pulmonary edema or vascular crowding. Mediastinum: Mediastinal contours appear unchanged. Heart size is mildly enlarged. Bones and chest wall: No suspicious bony lesions. Overlying soft tissues appear unremarkable. IMPRESSION: 1. Pulmonary vascular prominence compatible with mild pulmonary edema or vascular crowding. Reviewed by: Aris Tejada MD on 07/15/2022 12:26 AM PDT Approved by: Aris Tejada MD on 07/15/2022 12:26 AM PDT Station ID: [id number]
[2022-07-15 01:37] VITALS: BP 149/69
== END 2022-07-15 01:37 | disposition home or self-care (01) ==
LOC: EDUNIT# → ED 23:17
DX: S09.90XA Unspecified injury of head, initial encounter (principal); W18.30XA Fall on same level, unspecified, initial encounter; I10 Essential (primary) hypertension; I48.91 Unspecified atrial fibrillation; Z79.01 Long term (current) use of anticoagulants
CPT/HCPCS: 36415; 80053; 83690; 85025; 93005; 99283; 99284

== ENCOUNTER 2022-08-19 11:15 | Outpatient (CLI) | payer MEDICARE, OTHER ==
[2022-08-19 17:39] LABS: BASOPHILS # (AUTO) 0.1 10^3/uL (0.0-0.1); BASOPHILS % (AUTO) 0.6 %; EOSINOPHILS # (AUTO) 0.4 10^3/uL (0.0-0.7); EOSINOPHILS % (AUTO) 4.3 %; HCT - HEMATOCRIT 41.1 % (37.0-47.0); HGB - HEMOGLOBIN 12.5 g/dL (12.0-16.0); LYMPHOCYTES % (AUTO) 24.1 %; MEAN CORPUSCULAR HEMOGLOBIN 28.5 pg (27.0-31.0); MEAN CORPUSCULAR HGB CONC 30.4 g/dL (32.0-36.0); MEAN CORPUSCULAR VOLUME 93.8 fL (81.0-99.0); MEAN PLATELET VOLUME 9.5 fL (7.9-10.8); MONOCYTES # (AUTO) 0.6 10^3/uL (0.0-1.0); MONOCYTES % (AUTO) 7.5 %; NEUTROPHILS # (AUTO) 5.1 10^3/uL (1.5-6.6); PLT - PLATELET COUNT 365 10^3/uL (130-450); RED BLOOD COUNT 4.38 10^6/uL (4.20-5.40); WHITE BLOOD COUNT 8.1 x10^3/uL (4.8-10.8)
[2022-08-19 18:05] LABS: ALBUMIN 3.7 g/dL (3.2-5.5); ALBUMIN/GLOBULIN RATIO 0.9 (1.0-2.2); BILIRUBIN,TOTAL 0.5 mg/dL (0.2-1.0); CALCIUM 9.3 mg/dL (8.5-10.3); CREATININE 0.9 mg/dL (0.4-1.0); POTASSIUM 4.4 mmol/L (3.5-5.0); TOTAL PROTEIN 7.6 g/dL (6.7-8.2)
== END 2022-08-19 11:30 | disposition home or self-care (01) ==
LOC: LAB.N 11:15
PROVIDERS: ATTEND Registered Nurse
DX: L03.90 Cellulitis, unspecified (principal); R21 Rash and other nonspecific skin eruption
CPT/HCPCS: 36415; 80053; 85025; 86140; 86787; 87040; 87252

== ENCOUNTER 2022-08-27 19:02 | Outpatient (CLI) | payer MEDICARE, OTHER ==
--- NOTE | 2022-08-28 03:27 | Ultrasound Report ---
PROCEDURE: Carotid Doppler Complete INDICATIONS: CAROTID BRUIT TECHNIQUE: Color and pulse Doppler interrogation was performed of both carotid systems, with image documentation and velocity measurements. COMPARISON: 01/27/2010 FINDINGS: Right side: Brachial blood pressure: 158/59 mm Hg. Common carotid artery peak systolic velocity: 44 cm/sec. Internal carotid artery peak systolic velocity: 52 cm/sec. Internal carotid artery end diastolic velocity: 15 cm/sec. External carotid artery peak systolic velocity: 77 cm/sec. ICA/CCA peak systolic ratio: 1.2 . Jones scale imaging description: There is hypoechoic plaque at the carotid bifurcation. Percent internal carotid artery stenosis: Less than 50%. Vertebral artery: Flow direction is antegrade. Left side: Brachial blood pressure: 157/71 mm Hg. Common carotid artery peak systolic velocity: 50 cm/sec. Internal carotid artery peak systolic velocity: 68 cm/sec. Internal carotid artery end diastolic velocity: 26 cm/sec. External carotid artery peak systolic velocity: 76 cm/sec. ICA/CCA peak systolic ratio: 1.4 . Jones scale imaging description: There is calcified plaque in the carotid bulb. Percent internal carotid artery stenosis: Less than 50%. Vertebral artery: Flow direction is antegrade. IMPRESSION: 1. In the right internal carotid artery, there is less than 50% stenosis based on peak systolic veloc ity criteria. 2. In the left internal carotid artery, there is less than 50 percent stenosis calcified plaque in th e carotid bulb. based on peak systolic velocity criteria. 3. Antegrade blood flow within the right vertebral artery. 4. Antegrade blood flow within the left vertebral artery. The estimate of stenosis included in the report of the imaging study was calculated using the [facility]-end orsed standards of carotid artery stenosis. Reviewed by: Aris Tejada MD on 08/28/2022 3:25 AM PDT Approved by: Aris Tejada MD on 08/28/2022 3:25 AM PDT Station ID: [id number]
== END 2022-08-27 19:03 | disposition home or self-care (01) ==
LOC: DI 19:02
PROVIDERS: ATTEND Nurse Practitioner
DX: I65.21 Occlusion and stenosis of right carotid artery (principal); I65.22 Occlusion and stenosis of left carotid artery
CPT/HCPCS: 93880

== ENCOUNTER 2022-09-07 21:01 | Outpatient (CLI) | payer MEDICARE, OTHER ==
--- NOTE | 2022-09-08 14:35 | Ultrasound Report ---
PROCEDURE: Duplex Lwr Ext Arterial Bilat INDICATIONS: PERIPHERAL EDEMA, RASH, CELLULITIS TECHNIQUE: Color and pulse Doppler interrogation was performed of both lower extremity arterial systems, with im age documentation. COMPARISON: None FINDINGS: Right lower extremity: Common femoral artery: 137.5 cm/sec, with biphasic flow. Deep femoral artery: 98 cm/sec, with biphasic/triphasic flow. Proximal superficial femoral artery: 129.1 cm/sec, with biphasic/triphasic flow. Mid superficial femoral artery: 120.0 cm/sec, with triphasic flow. Distal superficial femoral artery: 98.8 cm/sec, with triphasic flow. Popliteal artery: 86.5 cm/sec, with monophasic flow. Posterior tibial artery: 53.6/23.4 cm/sec, with monophasic/monophasic flow. Anterior tibial artery/dorsalis pedis: 170.1/88.0 cm/sec, with biphasic/triphasic flow. Jones-scale imaging description: No significant stenotic disease from the common femoral through the popliteal, with normal waveforms above the popliteal. Posterior tibial artery distal disease. Left lower extremity: Common femoral artery: 128.0 cm/sec, with biphasic flow. Deep femoral artery: 122.2 cm/sec, with biphasic flow. Proximal superficial femoral artery: 126.3 cm/sec, with biphasic/triphasic flow. Mid superficial femoral artery: 104.5 cm/sec, with biphasic/triphasic flow. Distal superficial femoral artery: 86.8 cm/sec, with biphasic flow. Popliteal artery: 90.8 cm/sec, with biphasic flow. Posterior tibial artery: 25.3/23.0 cm/sec, with high resistance monophasic waveform . Anterior tibial artery/dorsalis pedis: 148.2/96.4 cm/sec, with biphasic/biphasic flow. Jones-scale imaging description: Widely patency from the common femoral through the popliteal. Severe posterior tibial artery disease. Unremarkable anterior tibial artery. IMPRESSION: 1. No evidence of inflow stenosis. 2. No significant stenosis from the common femoral through the popliteals. 3. Bilateral posterior tibial artery distribution distal disease. Reviewed by: Floyd Mathur MD on 09/08/2022 2:34 PM PDT Approved by: Floyd Mathur MD on 09/08/2022 2:34 PM PDT Station ID: [id number]
== END 2022-09-07 21:02 | disposition home or self-care (01) ==
LOC: DI 21:01
PROVIDERS: ATTEND Registered Nurse
DX: R60.0 Localized edema (principal); R21 Rash and other nonspecific skin eruption; L03.90 Cellulitis, unspecified; I77.89 Other specified disorders of arteries and arterioles
CPT/HCPCS: 93925

== ENCOUNTER 2022-09-24 12:30 | Outpatient (CLI) | payer MEDICARE, OTHER | END 2022-09-24 12:45 | disposition home or self-care (01) | LOC: LAB.N 12:30 | PROVIDERS: ATTEND Family Medicine | DX: L97.819 Non-pressure chronic ulcer of other part of right lower leg with unspecified severity (principal) | CPT/HCPCS: 87070; 87205 ==

== ENCOUNTER 2022-11-10 11:22 | Outpatient (CLI) | payer MEDICARE, OTHER ==
--- NOTE | 2022-11-10 12:16 | SLEEP CARE CONSULTATION ---
Information from patient questionnaire entered by Eileen Sharma. I have reviewed and concur with the information entered by Eileen Sharma. This document represents the service I personally performed and the decisions made by me, Oxana Ovalle ARNP. History of Present Illness Service Date and Time: 11/10/2022 1122 Previous diagnosis: Mild, Obstructive Sleep Apnea-Hypopnea Syndrome AHI: 10.7 Reason for follow up: annual (LAST SEEN 08/2021) Equipment type: CPAP (TON Dreamwear 2) Equipment obtained from: [employer] (getting supplies as needed) Mask style: Nasal pillows Mask brand: Resmed (Parks FX, medium cushion) Backup mask available: Yes (old mask) Last cushion change: 2 weeks Prior sleep studies: Yes Year and Where: 2007 [facility] additional information: [address] was diagnosed to have mild, AHI 10.7, obstructive sleep apnea- hypopnea syndrome and returned today for CPAP therapy annual follow-up. Sleep Study - Results Prior sleep studies: Yes Year and Where: 2007 [facility] CPAP Compliance Data - Data Reviewed with Patient Average duration of nightly device use: 9 HRS 7 MINS Compliance rate %: 91.7 (05/10/22-11/05/22; 179/180 days used) Current pressure setting (cmH2O): 6-10 Average residual AHI: 1.7 Central apnea: 0.1 Obstructive apnea: 0.6 Hypopnea: 1 Average large leak: 11 secs Subjective Missed days of use due to: reports: other (didn't sleep that night) Patient concerns: reports: nasal congestion (sometimes), dry mouth, nose, throat (sometimes), other (headache sometimes, "lives with headaches"). denies: aerophagia, mask discomfort, air blowing in eyes, mask leak noise, condensation in mask/hose, epistaxis Initial Wolsey Sleepiness Scale score: 20 (in 2009) Current Wolsey Sleepiness Scale score: 11 (11/09/22) Allergies and Home Medications Known drug allergies: Yes (as listed) Drug allergies reviewed: Yes Home medication list reviewed: Yes (no changes) Allergy and home medication list: Allergies pseudoephedrine Allergy (Severe, Verified 11/09/22 14:45) Anaphylaxis codeine Allergy (Intermediate, Verified 11/09/22 14:45) Nausea and itching tetracycline [Tetracycline] Allergy (Intermediate, Verified 11/09/22 14:45) Hives latex Allergy (Unknown, Verified 11/09/22 14:45) Unknown phenylpropanolamine Allergy (Unknown, Verified 11/09/22 14:45) Unknown carvedilol Allergy (Verified 11/09/22 14:45) Unknown duloxetine Allergy (Verified 11/09/22 14:45) Rash ciprofloxacin [From Cipro] Adverse Reaction (Verified 11/09/22 14:45) due to achilles tendon levofloxacin [From Levaquin] Adverse Reaction (Verified 11/09/22 14:45) due to achilles tendon lisinopril Adverse Reaction (Verified 11/09/22 14:45) Respiratory Review of Systems Review of systems same as previous: No (CELLULITIS) Physical Exam Vital signs obtained and entered by: EILEEN Escalona MA Blood Pressure: 132/82 (LEFT ARM) Cuff size: long Heart Rate: 78 O2 Saturation: 98 Height: 4 ft 10 in Weight: 259 lb 6.4 oz Body Mass Index: 54.2 BMI Classification: Morbidly Obese Impression and Plan 1. Obstructive Sleep Apnea-Hypopnea Syndrome, mild, with good treatment compliance and good apnea control. On CPAP therapy, the patient has better sleep quality and is more rested overall. Patient has significant improvement of their sleep apnea and is satisfied with current CPAP therapy. Patient occasionally gets dry mouth and nasal congestion but she says its not often. Patient's apnea severity and rationale for treatment to reduce apnea, improve sleep quality and reduce cardiovascular and cerebrovascular events was reviewed. I also reviewed the benefit of consistent device use of CPAP for hypertension and cerebrovascular disease. 2. Obesity, unspecified. Currently patients BMI is 54.2. Obesity increases the risk of apnea, CPAP pressure requirements and overall health risks especially cardiovascular and diabetes. Thus patient is advised to lose weight. * Continue auto CPAP pressure at 6-10 cmH2O * Update supplies * Notify me if snoring with mask or feeling that the pressure is too much or too little * Attempt to lose weight * Call this office if any problems using CPAP * Return for follow up in 1 year, or sooner if concerns arise Counseling Topics: Spare mask, Weight loss health impact Visit Type: In Office Time Spent with Patient (minutes): 21 Provider Statement: I spent 100% of the Face to Face Visit with the patient with greater than 50% spent counseling the patient and coordination of care.
[2022-11-10 12:18] VITALS: BP 132/82; O2SAT 98
== END 2022-11-10 11:23 | disposition home or self-care (01) ==
LOC: SC 11:22
PROVIDERS: ATTEND Nurse Practitioner Family
DX: G47.33 Obstructive sleep apnea (adult) (pediatric) (principal); E66.9 Obesity, unspecified; Z68.43 Body mass index [BMI] 50.0-59.9, adult
CPT/HCPCS: 99213; G0463; 99212

== ENCOUNTER 2022-11-24 07:44 | Outpatient (CLI) | payer MEDICARE, OTHER | END 2022-11-24 07:45 | disposition home or self-care (01) | LOC: LAB.N 07:44 | PROVIDERS: ATTEND Family Medicine | DX: G60.9 Hereditary and idiopathic neuropathy, unspecified (principal) | CPT/HCPCS: 36415; 82306; 82607 ==

== ENCOUNTER 2022-11-24 10:33 | Outpatient (CLI) | payer MEDICARE, OTHER ==
--- NOTE | 2022-11-24 12:36 | Ultrasound Report ---
PROCEDURE: Duplex Ext Veins Right INDICATIONS: EDEMA TECHNIQUE: Real-time imaging, as well as color and pulse Doppler interrogation, were performed of the lower extr emity deep veins from the inguinal ligament to the popliteal fossa. Attempted visualization of the ca lf veins was performed. COMPARISON: None. FINDINGS: The deep veins are normally compressible, and free of intraluminal thrombus. Color and pu lse Doppler demonstrate normal phasic intraluminal flow. There is normal augmentation response to di stal compression maneuver. IMPRESSION: No deep venous thrombosis of the visualized lower extremity. Reviewed by: Dakota Roche on 11/24/2022 12:34 PM PDT Approved by: Dakota Roche on 11/24/2022 12:34 PM PDT Station ID: [id number]
== END 2022-11-24 10:34 | disposition home or self-care (01) ==
LOC: DI 10:33
PROVIDERS: ATTEND Family Medicine
DX: L97.919 Non-pressure chronic ulcer of unspecified part of right lower leg with unspecified severity (principal); R60.9 Edema, unspecified; G60.9 Hereditary and idiopathic neuropathy, unspecified
CPT/HCPCS: 36415; 82306; 82607

== ENCOUNTER 2023-01-17 12:34 | Outpatient (CLI) | payer MEDICARE, OTHER ==
--- NOTE | 2023-01-17 16:33 | Ultrasound Report ---
PROCEDURE: Head or Neck Soft Tissue INDICATIONS: THYROID ADENOMA TECHNIQUE: Real-time scanning was performed of the thyroid gland, with image documentation. COMPARISON: 06/02/2022 FINDINGS: Right: Thyroid lobe measures 4.2 x 1.2 x 2.4 cm, and is homogeneous in echotexture. Left: Surgically absent Isthmus: 4 mm thick. Nodule number: One Location: Right inferior thyroid bed Size: 1.7 x 0.7 x 0.9 cm. Composition: Solid and spongiform Echogenicity: Hypoechoic. Shape: wider than tall (0 points). Margins: Smooth (0 points). Echogenic foci: None (0 points). Total points: 4 ACR TI-RADS category: 4 Recommendations: Fine needle aspiration Nodule number: Two Location: Isthmus Size: 0.9 x 0.6 x 0.9 cm. Composition: Solid. Echogenicity: Hypoechoic. Shape: wider than tall (0 points). Margins: Smooth (0 points). Echogenic foci: None (0 points). Total points: 4 ACR TI-RADS category: 4 Recommendations: No follow-up necessary based on size. Nodule number: Three Location: Isthmus Size: 0.9 x 0.5 x 1.1 cm. Composition: Solid. Echogenicity: Isoechoic. Shape: wider than tall (0 points). Margins: Smooth (0 points). Echogenic foci: None (0 points). Total points: 3 ACR TI-RADS category: 39 sign recommendations: Follow-up imaging at 1, 2, 3, and 5 years. IMPRESSION: 1. Postsurgical sequelae. 2. Right thyroid nodules with recommendations as above. Reviewed by: Stephany Mendoza MD on 01/17/2023 4:32 PM PST Approved by: Stephany Mendoza MD on 01/17/2023 4:32 PM PST Station ID: [id number]
== END 2023-01-17 12:35 | disposition home or self-care (01) ==
LOC: DI 12:34
PROVIDERS: ATTEND Family Medicine
DX: E04.2 Nontoxic multinodular goiter (principal)

== ENCOUNTER 2023-01-22 08:00 | Outpatient (CLI) | payer MEDICARE, OTHER | END 2023-01-22 23:58 | disposition home or self-care (01) | LOC: LAB.N 08:00 | PROVIDERS: ATTEND Nurse Practitioner | DX: N39.0 Urinary tract infection, site not specified (principal) | CPT/HCPCS: 87086; 87181 ==

== ENCOUNTER 2023-05-10 13:44 | Outpatient (CLI) | payer MEDICARE, OTHER | END 2023-05-10 23:59 | disposition critical access hospital (66) | LOC: EMS 13:44 | DX: R07.89 Other chest pain (principal); R42 Dizziness and giddiness; I10 Essential (primary) hypertension | CPT/HCPCS: A0425; A0427 ==

== ENCOUNTER 2023-05-10 14:05 | Emergency (ER) | payer MEDICARE, OTHER ==
[2023-05-10 14:34] LABS: BASOPHILS % (AUTO) 0.3 %; EOSINOPHILS # (AUTO) 0.2 10^3/uL (0.0-0.7); EOSINOPHILS % (AUTO) 3.2 %; HCT - HEMATOCRIT 38.8 % (37.0-47.0); HGB - HEMOGLOBIN 12.1 g/dL (12.0-16.0); LYMPHOCYTES # (AUTO) 2.7 10^3/uL (1.5-3.5); LYMPHOCYTES % (AUTO) 37.2 %; MEAN CORPUSCULAR HEMOGLOBIN 29.6 pg (27.0-31.0); MEAN CORPUSCULAR HGB CONC 31.2 g/dL (32.0-36.0); MEAN CORPUSCULAR VOLUME 94.9 fL (81.0-99.0); MONOCYTES # (AUTO) 0.5 10^3/uL (0.0-1.0); MONOCYTES % (AUTO) 7.5 %; NEUTROPHILS # (AUTO) 3.7 10^3/uL (1.5-6.6); NEUTROPHILS % (AUTO) 51.4 %; PLT - PLATELET COUNT 292 10^3/uL (130-450); RED BLOOD COUNT 4.09 10^6/uL (4.20-5.40); RED CELL DISTRIBUTION WIDTH 13.2 % (12.0-15.0); WHITE BLOOD COUNT 7.2 x10^3/uL (4.8-10.8)
--- NOTE | 2023-05-10 14:36 | ED Physician Documentation ---
PD HPI CHEST PAIN - Stated complaint Stated Complaint: CP - Chief complaint Chief Complaint: Cardiac - History obtained from History obtained from: Patient - Additional information Additional information: Patient is a 73-year-old female with a history of atrial fibrillation, status post pacemaker and on Eliquis presenting for evaluation of chest pain. Patient states that she was sitting at [employer] this morning and started having discomfort that felt like a heaviness on the left side of her chest. She reports that since that time she has had continued pain although it sometimes it does get worse. She is unable to determine anything that makes it better or worse. She went to the walk-in clinic Who directed patient to the emergency department. She was given a full dose of aspirin at the clinic. She was also given 2 nitro by EMS and reports no change in her symptoms. Denies recent illness.Denies shortness of air. Reports her leg swelling is at her baseline. No leg pain. Cardiology notes from September 2022 indicate that patient had complained of chest cramping and heaviness associated with nausea that occurs at rest when sitting and reading.Therefore they had obtained an echo and stress test. 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 Battery is 4.9 yrs and lead sensing and impedances are stable. 89% A pacing, 54 % V pacing with appropriate HR histogram. AT/AF [place] <1%. One AMS episode lasting 56 seconds. Six consecutive PVC's. One magnet response. Next check in 3 months Nuclear Stress Test Study Date: 08/31/2022 Interpretation Summary Low risk, probably normal pharmaceutical nuclear stress test. 1) Very slight fixed apical defect that is probably apical thining artifact but old small non-transmural infarction can't be excluded. No ischemia. SSS and SRS 2. 2) Normal left ventricular size, wall motion, and systolic function (EF post stress 73%). 3) No ST changes with lexiscan. 4) No angina during the study. 5) No prior nuclear stress test available for comparison. Review of Systems Constitutional: denies: Fever Cardiac: reports: Chest pain / pressure Respiratory: denies: Dyspnea, Cough GI: denies: Abdominal Pain, Vomiting : denies: Dysuria Neurologic: denies: Headache PD PAST MEDICAL HISTORY - Past Medical History Past Medical History: Yes Cardiovascular: Congestive heart failure, Hypertension, High cholesterol, Arrhythmia, Other Respiratory: Sleep apnea, CPAP use Neuro: TIA, Migraines, Peripheral neuropathy, Fainting Endocrine/Autoimmune: HyPOthyroidism GI: Colon polyps, Chronic constipation, Hemorrhoids : Incontinence, Chronic bladder infection, Frequency, Kidney stones, Other HEENT: Chronic vision loss, Chronic sinusitis, Other Psych: Anxiety, Panic attacks, Claustrophobia Musculoskeletal: Osteoarthritis, Fibromyalgia, Osteoporosis, Gout, Fatigue, Chronic back pain, Other Derm: Eczema, Other - Past Surgical History Past Surgical History: Yes General: Colonoscopy, Other Ortho: Carpal Tunnel surgery, Spine surgery, 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05% Crm] Desonide 1 applic TP ONCE PRN 11/17/18 11/10/22 Escitalopram [Lexapro] 10 mg PO DAILY 11/17/18 11/10/22 Fluticasone [Flonase] 1 sprays LUCIA DAILY PRN 11/17/18 11/10/22 Loratadine [Claritin] 10 mg PO DAILY PRN 11/17/18 11/10/22 Losartan Potassium 25 mg PO BID 11/17/18 11/10/22 Lysine [l-Lysine] 500 mg PO BID 11/17/18 11/10/22 Magnesium Sulfate 100 mg PO QPM 11/17/18 11/10/22 Olopatadine HCl [Patanol] 5 ml OP PRN PRN 11/17/18 11/10/22 Pimecrolimus [Elidel] 1 applic TP PRN PRN 11/17/18 11/10/22 hydroCHLOROthiazide 12.5 mg PO DAILY 11/17/18 11/10/22 [Hydrochlorothiazide] Ondansetron Odt [Zofran Odt] 4 mg TL Q6H PRN #10 tablet 01/09/19 11/10/22 Levothyroxine Sodium 50 mcg PO DAILY 05/05/19 11/10/22 Metoprolol Succinate [Toprol Xl] 25 mg PO QPM 05/05/19 11/10/22 Montelukast [Singulair] 10 mg PO QPM 04/17/20 11/10/22 Amox/Clav 875/125 [Augmentin 1 tablet PO Q12H 7 Days #14 tablet 10/07/22 11/10/22 875/125 Tab] - Allergies Allergies/Adverse Reactions: Allergies Allergy/AdvReac Type Severity Reaction Status Date / Time pseudoephedrine Allergy Severe Anaphylaxis Verified 05/10/23 14:34 codeine Allergy Intermediate Nausea Verified 05/10/23 14:34 tetracycline [Tetracycline] Allergy Intermediate Hives Verified 05/10/23 14:34 latex Allergy Unknown Unknown Verified 05/10/23 14:34 phenylpropanolamine Allergy Unknown Unknown Verified 05/10/23 14:34 carvedilol Allergy Unknown Verified 05/10/23 14:34 duloxetine Allergy Rash Verified 05/10/23 14:34 ciprofloxacin [From Cipro] AdvReac due to Verified 05/10/23 14:34 achilles tendon levofloxacin [From Levaquin] AdvReac due to Verified 05/10/23 14:34 achilles tendon lisinopril AdvReac Respiratory Verified 05/10/23 14:34 - Social History Does the pt smoke?: No Smoking Status: Never smoker Does the pt drink ETOH?: No Does the pt have substance abuse?: No - Immunizations Immunizations are current?: Yes - POLST Patient has POLST: No POLST Status: Full Code PD ED PE NORMAL - General General: Alert and oriented X 3, No acute distress, Well developed/nourished - HEENT HEENT: Atraumatic, Moist mucous membranes, Pharynx benign - Neck Neck: Supple, no meningeal sign - Cardiac Cardiac: RRR, Strong equal pulses, Other (L sided chest wall tenderness; no rashes) - Respiratory Respiratory: No respiratory distress, Clear bilaterally - Abdomen Abdomen: Soft, Non tender, Non distended - Derm Derm: Warm and dry - Extremities Extremities: No calf tenderness / cord, Other (Mild bilateral lower extremity edema) - Neuro Neuro: Normal speech Results - Vitals Vitals: Vital Signs - 24 hr 05/10/23 05/10/23 05/10/23 14:07 15:08 15:31 Temperature 36.6 C Heart Rate 60 60 60 Respiratory 16 19 15 Rate Blood Pressure 185/73 H 171/102 H 189/86 H O2 Saturation 97 97 95 05/10/23 16:26 Temperature Heart Rate 60 Respiratory 13 Rate Blood Pressure 193/75 H O2 Saturation 100 Oxygen O2 Source Room air - EKG (time done) 1419 EKG releavant findings:: EKG personally interpreted by author of this note. Relevant findings are: Rate 62, ventricular paced rhythm, no STEMI - Labs Labs: Laboratory Tests 05/10/23 05/10/23 05/10/23 14:26 14:26 14:26 WBC 7.2 RBC 4.09 L Hgb 12.1 Hct 38.8 MCV 94.9 MCH 29.6 MCHC 31.2 L RDW 13.2 Plt Count 292 MPV 9.0 Neut # (Auto) 3.7 Lymph # (Auto) 2.7 [place] # (Auto) 0.5 Eos # (Auto) 0.2 Baso # (Auto) 0.0 Absolute Nucleated RBC 0.00 Nucleated RBC % 0.0 Sodium 140 Potassium 4.0 Chloride 103 Carbon Dioxide 33 H Anion Gap 4.0 L BUN 14 Creatinine 0.6 Estimated GFR (MDRD) 98 Glucose 108 H Calcium 10.0 Total Bilirubin 0.4 AST 19 ALT 22 Alkaline Phosphatase 114 Troponin I High Sens 3.0 B-Natriuretic Peptide 84 Total Protein 6.6 Albumin 3.8 Globulin 2.8 Albumin/Globulin Ratio 1.4 Lipase 15 05/10/23 15:42 WBC RBC Hgb Hct MCV MCH MCHC RDW Plt Count MPV Neut # (Auto) Lymph # (Auto) [place] # (Auto) Eos # (Auto) Baso # (Auto) Absolute Nucleated RBC Nucleated RBC % Sodium Potassium Chloride Carbon Dioxide Anion Gap BUN Creatinine Estimated GFR (MDRD) Glucose Calcium Total Bilirubin AST ALT Alkaline Phosphatase Troponin I High Sens 3.3 B-Natriuretic Peptide Total Protein Albumin Globulin Albumin/Globulin Ratio Lipase PD Medical Decision Making - ED course Complexity details: reviewed results, re-evaluated patient, d/w patient ED course: Patient is a 73-year-old female presenting for evaluation of chest pain. It started at rest while at a Bible study. It has been constant although at some points has been worse today but at no time since it has started has she been pain-free. EKG is reviewed which is a ventricular paced rhythm. CBC, chemistry, troponin and BMP were obtained and reviewed and without significant findings. Chest x-ray which I reviewed is negative for consolidation or significant effusion. Patient has been resting comfortably here. Repeat troponin remains negative and patient is feeling better. Her blood pressure has been elevated here but she did not take her morning medications as she was running late for Bible study. At this time I do not see indication to rapidly lower her blood pressure and have encouraged her to take her medications when she returns home. 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 She did have a stress test and echo last year. Encouraged her to call tomorrow to have a close follow-up appointment to see if she needs any further testing for her episodes of chest pain today. Patient counseled on strict return precautions for any worsening symptoms. She is already anticoagulated on Eliquis thus I feel pulmonary embolism is less likely. Pain is not migratory And has resolved here so dissection also seems less likely. 1535 - Patient resting with her eyes closed. Discussed plan for repeat troponin. She states she is feeling better here. 1624 - Second troponin is negative. Patient has not taken her antihypertensives today as she states she was running late for her Bible study. Departure - Departure Disposition: 01 Home, Self Care Clinical Impression: Chest pain, Uncontrolled hypertension Condition: Stable Instructions: ED Chest Pain Atypical Unkn Cause, ED Hypertension Conf Out Of Control Follow-Up: Kelle Gonsalez MD [Physician No Access] - Comments: Your testing today is does not show signs of a heart attack. You also already on a blood thinner so that makes a blood clot less likely. I would recommend close follow-up with your questioned documents examiner both for your chest pain as well as for your blood pressure which has been high here. Make sure you are taking your medications as directed. Return to the ER with any worsening symptoms. Forms: PCP List Discharge Date/Time: 05/10/23 16:59
--- NOTE | 2023-05-10 14:49 | XRAY Report ---
PROCEDURE: Chest 1V INDICATIONS: CP TECHNIQUE: One view of the chest was acquired. COMPARISON: None. FINDINGS: Surgical changes and devices: Left-sided pacer. Lungs and pleura: No pleural effusions or pneumothorax. Mild diffuse reticulonodular pulmonary opaci ty. Mediastinum: Mediastinal contours appear normal. Heart size is enlarged. Bones and chest wall: No suspicious bony lesions. Overlying soft tissues appear unremarkable. IMPRESSION: Mild edema versus atypical pneumonia. Reviewed by: Stephany Garcia MD on 05/10/2023 2:48 PM PST Approved by: Stephany Garcia MD on 05/10/2023 2:48 PM PST Station ID: [id number]
[2023-05-10 15:13] LABS: ALBUMIN 3.8 g/dL (3.2-5.5); ALBUMIN/GLOBULIN RATIO 1.4 (1.0-2.2); BILIRUBIN,TOTAL 0.4 mg/dL (0.2-1.0); CREATININE 0.6 mg/dL (0.6-1.3); TOTAL PROTEIN 6.6 g/dL (6.4-8.9)
[2023-05-10 16:30] VITALS: BP 193/75; O2SAT 100
== END 2023-05-10 16:59 | disposition home or self-care (01) ==
LOC: EDUNIT# → ED 14:05
DX: R07.9 Chest pain, unspecified (principal); I10 Essential (primary) hypertension; Z79.01 Long term (current) use of anticoagulants
CPT/HCPCS: 36415; 80053; 83690; 83880; 84484; 85025; 93005; 99283; 99284

== ENCOUNTER 2023-06-08 09:45 | Outpatient (CLI) | payer MEDICARE, OTHER | END 2023-06-08 10:00 | disposition home or self-care (01) | LOC: LAB.N 09:45 | PROVIDERS: ATTEND Family Medicine | DX: L03.115 Cellulitis of right lower limb (principal) | CPT/HCPCS: 87070; 87205 ==

== ENCOUNTER 2023-06-16 10:52 | Outpatient (CLI) | payer MEDICARE, OTHER ==
[2023-06-16 18:07] LABS: ALBUMIN 4.1 g/dL (3.2-5.5); ALBUMIN/GLOBULIN RATIO 1.2 (1.0-2.2); ALKALINE PHOSPHATASE 152 IU/L (42-121); ALT ALANINE AMINOTRANSFERASE 30 IU/L (10-60); AST ASPARTATE AMINOTRANSFERASE 25 IU/L (10-42); BILIRUBIN,TOTAL 0.4 mg/dL (0.2-1.0); BUN - BLOOD UREA NITROGEN 20 mg/dL (6-20); CALCIUM 10.2 mg/dL (8.5-10.3); CARBON DIOXIDE - CO2 30 mmol/L (21-32); CHLORIDE 103 mmol/L (101-111); CHOL/HDL RATIO 5.4 (<4.4); CHOLESTEROL 216 mg/dL; CREATININE 0.6 mg/dL (0.6-1.3); GFR - MDRD 98 (>89); GLUCOSE 110 mg/dL (74-104); HDL CHOLESTEROL 40 mg/dL; LDL CHOLESTEROL,CALCULATED 137 mg/dL; LDL/HDL RATIO 3.4 (<4.4); POTASSIUM 4.5 mmol/L (3.5-4.5); SODIUM 139 mmol/L (135-145); TOTAL PROTEIN 7.5 g/dL (6.4-8.9); TRIGLYCERIDES 196 mg/dL (48-352); VLDL CHOLESTEROL 39 mg/dL
[2023-06-16 18:14] LABS: BASOPHILS % (AUTO) 0.4 %; EOSINOPHILS # (AUTO) 0.5 10^3/uL (0.0-0.7); EOSINOPHILS % (AUTO) 6.9 %; HCT - HEMATOCRIT 42.4 % (37.0-47.0); LYMPHOCYTES # (AUTO) 2.5 10^3/uL (1.5-3.5); LYMPHOCYTES % (AUTO) 31.7 %; MEAN CORPUSCULAR HEMOGLOBIN 29.7 pg (27.0-31.0); MEAN CORPUSCULAR HGB CONC 30.7 g/dL (32.0-36.0); MEAN CORPUSCULAR VOLUME 96.8 fL (81.0-99.0); MEAN PLATELET VOLUME 9.5 fL (7.9-10.8); MONOCYTES # (AUTO) 0.5 10^3/uL (0.0-1.0); MONOCYTES % (AUTO) 6.7 %; NEUTROPHILS # (AUTO) 4.2 10^3/uL (1.5-6.6); NEUTROPHILS % (AUTO) 53.9 %; PLT - PLATELET COUNT 345 10^3/uL (130-450); RED BLOOD COUNT 4.38 10^6/uL (4.20-5.40); RED CELL DISTRIBUTION WIDTH 13.8 % (12.0-15.0); WHITE BLOOD COUNT 7.9 x10^3/uL (4.8-10.8)
[2023-06-16 18:19] LABS: THYROID STIMULATING HORMONE 2.42 uIU/mL (0.34-5.60)
== END 2023-06-16 10:53 | disposition home or self-care (01) ==
LOC: LAB.N 10:52
PROVIDERS: ATTEND Family Medicine
DX: G62.9 Polyneuropathy, unspecified (principal); L97.919 Non-pressure chronic ulcer of unspecified part of right lower leg with unspecified severity; R60.9 Edema, unspecified; I48.91 Unspecified atrial fibrillation; E03.9 Hypothyroidism, unspecified
CPT/HCPCS: 36415; 80053; 80061; 83721; 84443; 85025

== ENCOUNTER 2023-09-05 13:42 | Outpatient (CLI) | payer MEDICARE, OTHER ==
--- NOTE | 2023-09-07 10:23 | SLEEP CARE CONSULTATION ---
Information from patient questionnaire entered by Eileen Sharma. I have reviewed and concur with the information entered by Eileen Sharma. This document represents the service I personally performed and the decisions made by me, Camden Haas MD, [facility]. History of Present Illness Service Date and Time: 09/05/2023 1342 Previous diagnosis: Mild, Obstructive Sleep Apnea-Hypopnea Syndrome AHI: 10.7 Reason for follow up: annual (LASR SEEN 10/2022) Equipment type: CPAP (TON Dreamwear 2) Equipment obtained from: [employer] (getting supplies as needed) Mask style: Nasal pillows Prior sleep studies: Yes Year and Where: 2007 [facility] additional information: Ms. Barry was diagnosed to have mild (AHI 10.7) obstructive sleep apnea- hypopnea syndrome and was called today vu telephone for her first compliance follow-up of CPAP therapy. The patient went to [facility] for the equipment and was fitted with nasal pillows. She reports using the device nightly and all through the night. The compliance report shows usage in 357 nights out of the past 365 nights, averaging 8.7 hours a night. She complained of no particular problem with the device such as soreness on the face, dry nose, epistaxis, nasal congestion or headache. She thinks that the pressure of 6 - 10 cmH2O is comfortable. On the CPAP therapy she notices improvement in her sleep quality, and that she wakes up feeling fresher in the morning and more awake/alert during the day. Her notices no snore at all. The average residual AHI is 1.6; and average time in large leak per day is 6 seconds. The 90th percentile pressure is 8.6 cmH2O. Sleep Study - Results Prior sleep studies: Yes Year and Where: 2007 [facility] CPAP Compliance Data - Data Reviewed with Patient Average duration of nightly device use: 8HRS 43MINS 56SEC Compliance rate %: 87.4 (08/31/22-08/30/23) Current pressure setting (cmH2O): 6-10 Average residual AHI: 1.6 Subjective Initial [place] Sleepiness Scale score: 20 (in 2009) Current [place] Sleepiness Scale score: 13 (09/05/23) Allergies and Home Medications Drug allergies reviewed: Yes Home medication list reviewed: Yes Allergy and home medication list: Allergies pseudoephedrine Allergy (Severe, Verified 09/05/23 09:) Anaphylaxis codeine Allergy (Intermediate, Verified 09/05/23 09:) Nausea and itching tetracycline [Tetracycline] Allergy (Intermediate, Verified 09/05/23 09:) Hives latex Allergy (Unknown, Verified 09/05/23 09:) Unknown phenylpropanolamine Allergy (Unknown, Verified 09/05/23 09:) Unknown carvedilol Allergy (Verified 09/05/23:) Unknown duloxetine Allergy (Verified 09/05/23:) Rash ciprofloxacin [From Cipro] Adverse Reaction (Verified 09/05/23:) due to achilles tendon levofloxacin [From Levaquin] Adverse Reaction (Verified 09/05/23:) due to achilles tendon lisinopril Adverse Reaction (Verified 09/05/23:) Respiratory Review of Systems Review of systems same as previous: Yes Physical Exam Vital signs obtained and entered by: EILEEN Escalona MA Height: 4 ft 11 in (PER PT) Weight: 255 lb (PER PT) Body Mass Index: 51.5 BMI Classification: Morbidly Obese Impression and Plan IMPRESSION: 1. Obstructive Sleep Apnea-Hypopnea Syndrome, mild, with the patient doing well on nasal CPAP therapy. She has excellent compliance and significant clinical improvement. The current pressure appears effective and comfortable. Overall, she is very satisfied with treatment and plans to continue with it long-term. No adjustment is necessary today. Because the CPAP is now older than the useful life of 5 years, I will order the patient a new one and make it an autoCPAP set between 6 and 10 cmH2O. PLAN: 1. Continue with nasal CPAP therapy with 6 - 10 cmH2O. 2. Prescription made for an autoCPAP, heated humidifier, and related supplies. 3. Return in one year for follow up or earlier if there is any problem with the treatment. Prescriptions: Auto CPAP Follow up with [facility] in: 1 year Visit Type: Telehealth Video Video Type: Gavin Patient Location: Home Location of Provider: Home Patient agrees and consents to this telehealth visit type: Yes Patient agrees to have their insurance billed: Yes Time Spent with Patient (minutes): 15 Provider Statement: I spent 100% of the Telehealth Video Call with the patient with greater than 50% spent counseling the patient and coordination of care.
== END 2023-09-05 13:43 | disposition home or self-care (01) ==
LOC: SC 13:42
PROVIDERS: ATTEND Internal Medicine Pulmonary Disease
DX: G47.33 Obstructive sleep apnea (adult) (pediatric) (principal); E66.01 Morbid (severe) obesity due to excess calories; Z68.43 Body mass index [BMI] 50.0-59.9, adult

== ENCOUNTER 2023-12-02 08:12 | Outpatient (CLI) | payer MEDICARE, OTHER ==
[2023-12-02 12:40] LABS: BASOPHILS % (AUTO) 0.3 %; EOSINOPHILS # (AUTO) 0.3 10^3/uL (0.0-0.7); EOSINOPHILS % (AUTO) 4.2 %; HCT - HEMATOCRIT 40.6 % (37.0-47.0); HGB - HEMOGLOBIN 12.4 g/dL (12.0-16.0); LYMPHOCYTES # (AUTO) 2.2 10^3/uL (1.5-3.5); LYMPHOCYTES % (AUTO) 29.4 %; MEAN CORPUSCULAR HEMOGLOBIN 29.2 pg (27.0-31.0); MEAN CORPUSCULAR HGB CONC 30.5 g/dL (32.0-36.0); MEAN CORPUSCULAR VOLUME 95.5 fL (81.0-99.0); MEAN PLATELET VOLUME 9.3 fL (7.9-10.8); MONOCYTES # (AUTO) 0.5 10^3/uL (0.0-1.0); MONOCYTES % (AUTO) 6.2 %; NEUTROPHILS # (AUTO) 4.4 10^3/uL (1.5-6.6); NEUTROPHILS % (AUTO) 59.6 %; PLT - PLATELET COUNT 294 10^3/uL (130-450); RED BLOOD COUNT 4.25 10^6/uL (4.20-5.40); RED CELL DISTRIBUTION WIDTH 14.3 % (12.0-15.0); WHITE BLOOD COUNT 7.3 x10^3/uL (4.8-10.8)
[2023-12-02 12:54] LABS: ALBUMIN 3.8 g/dL (3.2-5.5); ALBUMIN/GLOBULIN RATIO 1.4 (1.0-2.2); ALKALINE PHOSPHATASE 145 IU/L (42-121); ALT ALANINE AMINOTRANSFERASE 23 IU/L (10-60); AST ASPARTATE AMINOTRANSFERASE 23 IU/L (10-42); BILIRUBIN,TOTAL 0.5 mg/dL (0.2-1.0); BUN - BLOOD UREA NITROGEN 17 mg/dL (6-20); CALCIUM 9.6 mg/dL (8.5-10.3); CARBON DIOXIDE - CO2 32 mmol/L (21-32); CHLORIDE 103 mmol/L (101-111); CHOL/HDL RATIO 5.2 (<4.4); CHOLESTEROL 203 mg/dL; CREATININE 0.6 mg/dL (0.6-1.3); GFR - MDRD 98 (>89); GLUCOSE 111 mg/dL (74-104); HDL CHOLESTEROL 39 mg/dL; LDL CHOLESTEROL,CALCULATED 119 mg/dL; LDL/HDL RATIO 3.1 (<4.4); POTASSIUM 4.1 mmol/L (3.5-4.5); SODIUM 141 mmol/L (135-145); TOTAL PROTEIN 6.5 g/dL (6.4-8.9); TRIGLYCERIDES 227 mg/dL; VLDL CHOLESTEROL 45 mg/dL
[2023-12-02 13:08] LABS: THYROID STIMULATING HORMONE 1.29 uIU/mL (0.34-5.60)
[2023-12-02 13:23] LABS: ESTIMATED AVERAGE GLUCOSE 105 mg/dL (70-100); HEMOGLOBIN A1c% 5.3 % (4.27-6.07)
== END 2023-12-02 08:13 | disposition home or self-care (01) ==
LOC: LAB.N 08:12
PROVIDERS: ATTEND Family Medicine
DX: I10 Essential (primary) hypertension (principal); R73.9 Hyperglycemia, unspecified; I83.10 Varicose veins of unspecified lower extremity with inflammation; G62.9 Polyneuropathy, unspecified; L97.919 Non-pressure chronic ulcer of unspecified part of right lower leg with unspecified severity; Z95.0 Presence of cardiac pacemaker; E66.1 Drug-induced obesity; M10.9 Gout, unspecified; M79.7 Fibromyalgia; F32.A Depression, unspecified
CPT/HCPCS: 36415; 80053; 80061; 83036; 83721; 84439; 84443; 84481; 85025

== ENCOUNTER 2024-04-23 15:28 | Observation (INO) ==
--- NOTE | 2024-04-23 16:12 | XRAY Report ---
PROCEDURE: XR Chest 2V INDICATIONS: cough TECHNIQUE: 2 views of the chest were acquired. COMPARISON: 04/20/2024 FINDINGS: Surgical changes and devices: Left chest wall pacemaker. Cervical spine hardware. Lungs and pleura: No pleural effusions or pneumothorax. No consolidation. Mediastinum: Mediastinal contours appear normal. Heart size is enlarged, stable. Bones and chest wall: No suspicious bony lesions. Overlying soft tissues appear unremarkable. IMPRESSION: No acute cardiopulmonary process. Reviewed by: David Knott MD on 04/23/2024 4:11 PM PST Approved by: David Knott MD on 04/23/2024 4:11 PM PST Station ID: [id number]
[2024-04-23 16:14] LABS: BASOPHILS % (AUTO) 0.3 %; EOSINOPHILS # (AUTO) 0.4 10^3/uL (0.0-0.7); EOSINOPHILS % (AUTO) 2.9 %; HCT - HEMATOCRIT 43.4 % (37.0-47.0); HGB - HEMOGLOBIN 13.7 g/dL (12.0-16.0); LYMPHOCYTES # (AUTO) 2.8 10^3/uL (1.5-3.5); LYMPHOCYTES % (AUTO) 20.6 %; MEAN CORPUSCULAR HEMOGLOBIN 30.1 pg (27.0-31.0); MEAN CORPUSCULAR HGB CONC 31.6 g/dL (32.0-36.0); MEAN CORPUSCULAR VOLUME 95.4 fL (81.0-99.0); MEAN PLATELET VOLUME 8.8 fL (7.9-10.8); MONOCYTES # (AUTO) 0.9 10^3/uL (0.0-1.0); MONOCYTES % (AUTO) 6.8 %; NEUTROPHILS # (AUTO) 9.5 10^3/uL (1.5-6.6); PLT - PLATELET COUNT 323 10^3/uL (130-450); RED BLOOD COUNT 4.55 10^6/uL (4.20-5.40); RED CELL DISTRIBUTION WIDTH 13.9 % (12.0-15.0); WHITE BLOOD COUNT 13.7 x10^3/uL (4.8-10.8)
[2024-04-23 16:28] LABS: ALBUMIN 4.2 g/dL (3.2-5.5); ALBUMIN/GLOBULIN RATIO 1.4 (1.0-2.2); BILIRUBIN,TOTAL 0.5 mg/dL (0.2-1.0); CALCIUM 9.5 mg/dL (8.5-10.3); CREATININE 0.7 mg/dL (0.6-1.3); POTASSIUM 4.3 mmol/L (3.5-4.5); TOTAL PROTEIN 7.2 g/dL (6.4-8.9)
[2024-04-23 16:34] LABS: TROPONIN I HIGH SENSITIVITY 4.8 ng/L (2.3-14.8)
[2024-04-23 16:57] LABS: B. PARAPERTUSSIS- RESP PCR PAN NOT DETECTED; B. PERTUSSIS- RESP PCR PANEL NOT DETECTED; C. PNEUMONIAE- RESP PCR PANEL NOT DETECTED; CORONAVIRUS 229E-RESP PCR NOT DETECTED; CORONAVIRUS HKU1-RESP PCR NOT DETECTED; CORONAVIRUS NL63-RESP PCR NOT DETECTED; CORONAVIRUS OC43-RESP PCR NOT DETECTED; HUMAN METAPNEUMOVIRUS NOT DETECTED; INFLUENZA A- RESP PCR PANEL NOT DETECTED; INFLUENZA B - RESP PCR PANEL NOT DETECTED; M. PNEUMONIAE- RESP PCR PANEL NOT DETECTED; PARAINFLUENZA VIRUS 1 NOT DETECTED; PARAINFLUENZA VIRUS 2 NOT DETECTED; PARAINFLUENZA VIRUS 4 NOT DETECTED; RHINOVIRUS/ENTEROVIRUS NOT DETECTED; RSV- RESP PCR PANEL NOT DETECTED; SARS-CoV-2 -RESP PCR PANEL NOT DETECTED
--- NOTE | 2024-04-23 17:39 | ED Physician Documentation ---
PD HPI DYSPNEA Stated complaint Stated Complaint: SOA Chief complaint Chief Complaint: Resp Additional information Additional information: 74-year-old female with history of eczema, atrial fibrillation, morbid obesity, asthma, neuropathy, CHF, sleep apnea dependent on CPAP, hypothyroidism presents emergency department with family due to increased shortness of breath. Patient was recently seen at walk-in clinic and had normal chest x-ray but she feels like she is getting progressively worse she has been started on prednisone 20 mg twice daily as well as Tessalon Perles and an albuterol inhaler she said it has been now a total of 11 days with ongoing cough shortness of breath and coughing up bright green phlegm. She is anticoagulated on Eliquis has not missed any recent doses feels like she is just progressively getting worse and family at bedside supports this. Thorp Coma Scale Assess Eye opening: Spontaneous Verbal response: Oriented Motor response: Obeys Commands Total score: 15 Meds/Allgy Home Medications Ambulatory Orders Medication Instructions Recorded Confirmed hydrochlorothiazide 12.5 mg tablet 12.5 mg PO DAILY 11/17/18 04/24/24 ondansetron 4 mg disintegrating 4 mg translingual Q6H PRN Nausea / 01/09/19 04/24/24 tablet Vomiting #10 tabs montelukast 10 mg tablet 10 mg PO QPM 04/17/20 04/24/24 apixaban 5 mg tablet (Eliquis) 5 mg PO BID 07/08/23 04/24/24 ascorbic acid (vitamin C) 500 mg 500 mg PO DAILY 07/08/23 04/24/24 tablet (Vitamin C) benfotiamine 150 mg capsule 150 mg PO DAILY 07/08/23 04/24/24 [id number]-[id number] 1 tab PO ONCE PRN Headache 07/08/23 04/24/24 50 mg-325 mg-40 mg tablet cyanocobalamin (vitamin B-12) 5,000 mcg PO DAILY 07/08/23 04/24/24 5,000 mcg capsule rimegepant 75 mg disintegrating 75 mg PO Q48H 07/08/23 04/24/24 tablet (Nurtec ODT) temazepam 7.5 mg capsule (Restoril) 7.5 mg PO HS PRN Insomnia 07/08/23 04/24/24 zinc gluconate 50 mg tablet 50 mg PO DAILY 07/08/23 04/24/24 allopurinol 100 mg tablet 100 mg PO DAILY #90 tabs 01/26/24 04/24/24 levothyroxine 50 mcg tablet 50 mcg PO DAILY #90 tabs 02/02/24 04/24/24 losartan 50 mg tablet 50 mg PO BID 02/08/24 04/24/24 metoprolol succinate 25 mg 25 mg PO BID 02/08/24 04/24/24 tablet,extended release 24 hr atogepant 60 mg tablet (Qulipta) 60 mg PO DAILY 03/22/24 04/24/24 terbinafine HCl 250 mg tablet 250 mg PO DAILY 03/22/24 04/24/24 magnesium 200 mg tablet 200 mg PO QDAY 04/10/24 04/24/24 prednisone 10 mg tablet 10 mg PO QDAY #30 tabs 04/10/24 04/24/24 tramadol 50 mg tablet 50 mg PO BID PRN pain #60 tabs 04/10/24 04/24/24 albuterol sulfate 90 mcg/actuation 2 puff inhalation QID PRN 04/20/24 04/24/24 aerosol inhaler shortness of breath or wheezing #6.7 grams benzonatate 100 mg capsule 100 mg PO TID PRN cough #30 caps 04/20/24 04/24/24 prednisone 20 mg tablet 40 mg (2 x 20 mg) PO QDAY 5 days 04/20/24 04/24/24 #10 tabs escitalopram oxalate 20 mg tablet 20 mg PO QDAY #90 tabs 04/23/24 04/24/24 cholecalciferol (vitamin D3) 125 5,000 unit PO DAILY 04/24/24 04/24/24 mcg (5,000 unit) capsule ipratropium bromide 42 mcg (0.06 2 spray intranasal BID 04/24/24 04/24/24 %) nasal spray pimecrolimus 1 % topical cream 1 applic topical DAILY PRN ud 04/24/24 04/24/24 vibegron 75 mg tablet (Gemtesa) 75 mg PO DAILY 04/24/24 04/24/24 Allergies Allergies Allergy/AdvReac Type Severity Reaction Status Date / Time carvedilol Allergy Severe Unknown Verified 04/23/24 15:51 duloxetine Allergy Severe Rash Verified 04/23/24 15:51 latex Allergy Severe Unknown Verified 04/23/24 15:51 phenylpropanolamine Allergy Severe Unknown Verified 04/23/24 15:51 pseudoephedrine Allergy Severe Anaphylaxis Verified 04/23/24 15:51 codeine Allergy Intermediate Nausea Verified 04/23/24 15:51 tetracycline (Tetracycline) Allergy Intermediate Hives Verified 04/23/24 15:51 ciprofloxacin (From Cipro) AdvReac Severe due to Verified 04/23/24 15:51 achilles tendon levofloxacin (From Levaquin) AdvReac Severe due to Verified 04/23/24 15:51 achilles tendon gabapentin AdvReac Intermediate confusion Verified 04/23/24 15:51 lisinopril AdvReac Intermediate Respiratory Verified 04/23/24 15:51 PFSH Medical History Medical History (Updated 04/23/24 @ 19:39 by Vielka Pka DNP) Unspecified perforation of tympanic membrane, unspecified ear 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 Maternal grandmother Cancer Sister Cervical cancer CAD (coronary artery disease) Mother Cervical cancer Uterine cancer Cancer Dementia CAD (coronary artery disease) Social History Social History (Updated 04/10/24 @ 16:03 by Marielena Posada LPN) Smoking Status: Never smoker Number of Years Smoked: 0 How many cigarettes a day do you smoke? (20 cigarettes=1 Pk): 0 Second hand tobacco smoke exposure: Yes (years ago) Do you dip or chew tobacco?: No Do you vape?: No Patient requests smoking cessation consult: No Initiate information on smoking cessation: No Living arrangement: At home Marital Status: Living Condition: With spouse/s.o. 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/hazards (Current/Previous): Asbestos Service: No Are you following a diet prescribed by a doctor: No Are you following a special diet: No POLST Patient has POLST: No POLST Status: Full Code Exam Constitutional normal general appearance, no apparent distress, abnormal body habitus (obese), no limitations and alert HENMT normocephalic and head/scalp atraumatic Eyes PERRL Chest inspection of chest normal Respiratory breath sounds equal bilaterally, abnormal respiratory effort (shallow breathing), auscultation abnormal (Right lung rhonchorous) and no wheezes Cardiovascular normal heart rate noted and regular rhythm noted Gastrointestinal abdomen normal to inspection Extremities normal to inspection Skin skin color normal Results Vitals Vitals: Vital Signs - 24 hr 04/23/24 15:49 04/23/24 17:37 04/23/24 18:16 Temperature 37.2 C Temperature Source Temporal Artery Scan Pulse Rate 72 65 66 Respiratory Rate 20 20 18 Blood Pressure 198/74 H 160/64 H O2 Saturation 96 94 O2 Source Room air Room air Pain Intensity 10 6 04/23/24 19:31 Temperature 37.6 C Temperature Source Temporal Artery Scan Pulse Rate 62 Respiratory Rate 18 Blood Pressure 159/74 H O2 Saturation 90 L O2 Source Room air Pain Intensity 10 Oxygen O2 Source Room air Labs Labs: Laboratory Tests 04/23/24 04/23/24 15:54 16:06 WBC 13.7 H RBC 4.55 Hgb 13.7 Hct 43.4 MCV 95.4 MCH 30.1 MCHC 31.6 L RDW 13.9 Plt Count 323 MPV 8.8 Neut # (Auto) 9.5 H Lymph # (Auto) 2.8 Crook # (Auto) 0.9 Eos # (Auto) 0.4 Baso # (Auto) 0.0 Absolute Nucleated RBC 0.00 Nucleated RBC % 0.0 Sodium 140 Potassium 4.3 Chloride 103 Carbon Dioxide 32 Anion Gap 5.0 L BUN 16 Creatinine 0.7 Estimated GFR (MDRD) 82 L Glucose 121 H Calcium 9.5 Total Bilirubin 0.5 AST 26 ALT 37 Alkaline Phosphatase 163 H Troponin I High Sens 4.8 B-Natriuretic Peptide 175 H Total Protein 7.2 Albumin 4.2 Globulin 3.0 Albumin/Globulin Ratio 1.4 Lipase 23 Nasal Adenovirus (PCR) NOT DETECTED Nasal B. parapertussis DNA (PCR) NOT DETECTED Nasal Coronavir 229E PCR NOT DETECTED Nasal Coronavir HKU1 PCR NOT DETECTED Nasal Coronavir NL63 PCR NOT DETECTED Nasal Coronavir OC43 PCR NOT DETECTED Nasal Enterovir/Rhinovir PCR NOT DETECTED Nasal Influenza B PCR NOT DETECTED Nasal Influenza A PCR NOT DETECTED Nasal Parainfluen 1 PCR NOT DETECTED Nasal Parainfluen 2 PCR NOT DETECTED Nasal Parainfluen 3 PCR NOT DETECTED Nasal Parainfluen 4 PCR NOT DETECTED Nasal RSV (PCR) NOT DETECTED Nasal B.pertussis DNA PCR NOT DETECTED Nasal C.pneumoniae (PCR) NOT DETECTED Vinny Human Metapneumo PCR NOT DETECTED Nasal M.pneumoniae (PCR) NOT DETECTED Nasal SARS-CoV-2 (PCR) NOT DETECTED Rads (name of study) Two-view chest x-ray: Relevant Findings:: Final report received and EMP independent interpretation of test Interpretation: IMPRESSION: No acute cardiopulmonary process. PD Medical Decision Making ED course ED course: 74-year-old female presents emergency department for increased work of breathing and shortness of breath. Chest x-ray is complete for further evaluation and radiology read shows no acute cardiopulmonary abnormalities or findings but on my personal read there is some possible right middle lobe consolidation she has a lot of right lobe rhonchorous sounds throughout entire right lobe and so I do have a high suspicion that there is possible underlying pneumonia. CBC was completed and she does have some mild leukocytosis, WBC 13.7 no anemia CMP does not show any significant abnormalities or findings no electrolyte abnormalities. I have a low suspicion for possible pulmonary embolism her vitals were stable and she is fully anticoagulated on Eliquis not missing any recent doses. We attempted to ambulate the patient to discharge her home on some oral antibiotics but her O2 sats dropped to 86% on room air and she has no history of requiring oxygen at home. She was originally ordered azithromycin and Augmentin pharmacist told to not approve it because I was going to make some changes but unfortunately pharmacy did not approve it and she received azithromycin on Augmentin she is also given a dose of IV Rocephin. Patient asked if she be willing to be admitted for pneumonia patient says she is willing to do so. I spoke with the hospitalist who is graciously agreed to admit the patient for further evaluation workup of hypoxia and possible pneumonia. Discharge Plan Discharge Patient Disposition: [facility] DC/Xfer Condition: Stable Clinical Impression: Hypoxia, Pneumonia Interventions: ED Admission Assessment Last Done: 04/23/24 20:50
[2024-04-23] MEDS: IPRATROPIUM/ALBUTEROL 3 ML NEB INH STA (18:13)
[2024-04-23] MEDS: DOXYCYCLINE 100 MG TABLET PO STA (18:20)
[2024-04-23] MEDS: AZITHROMYCIN 250 MG TABLET PO STA (18:20)
--- NOTE | 2024-04-23 19:30 | HISTORY & PHYSICAL EXAMINATION ---
Chief Complaint Chief Complaint Chief Complaint: SOA History of Present Illness History Obtained From Records Reviewed: [facility] note 04/20 History of Present Illness HPI Comment/Other: 74-year-old female who presents to the emergency department with complaints of shortness of breath. Has had trouble breathing for a few weeks and getting worse. Was seen at the walk-in clinic 3 days ago for a cough. She was given DuoNeb and prednisone. She was sent to the hospital for chest x-ray. She was not prescribed antibiotics. In any event presents to the emergency department today with the above complaints. She has hypoxia with ambulation down to 86% on room air. She states she has a history of CHF. She is not sure what her ejection fraction is. Her last echocardiogram was sometime in the last year. She sees Dr. Gonsalez at [facility]. She denies any history of COPD and asthma. She is prescribed hydrochlorothiazide but does not often take it because she struggles with urinary incontinence and has trouble making it to the bathroom when she takes it. She lives with her who is 80 years old and in pretty good health and her daughter Blanca who is an RN. In the last several weeks she has been placed on prednisone 10 mg a day by Dr. Unger who is her primary care doctor. He placed her on this for arthritis pain. Her and daughter together would be her surrogate decision makers where she unable to make her decision. When approached about CODE STATUS she states that she would like to be full code. She recognizes that when it is her time it is her time but she has many people in her life that she loves and she does not want to leave them. She also trusts that her and daughter would make the right decision for her should it come to it. Meds/Allgy Home Medications Ambulatory Orders Medication Instructions Recorded Confirmed cholecalciferol (vitamin D3) 50 5,000 unit PO DAILY 12/18/13 04/20/24 mcg (2,000 unit) tablet hydrochlorothiazide 12.5 mg tablet 12.5 mg PO DAILY 11/17/18 04/20/24 ondansetron 4 mg disintegrating 4 mg translingual Q6H PRN Nausea / 01/09/19 04/20/24 tablet Vomiting #10 tabs montelukast 10 mg tablet 10 mg PO QPM 04/17/20 04/20/24 apixaban 5 mg tablet (Eliquis) 5 mg PO BID 07/08/23 04/20/24 ascorbic acid (vitamin C) 500 mg 500 mg PO DAILY 07/08/23 04/20/24 tablet (Vitamin C) benfotiamine 150 mg capsule 150 mg PO DAILY 07/08/23 04/20/24 [id number]-awjtfylnscshm-ieyoahnc 1 tab PO ONCE PRN Headache 07/08/23 04/20/24 50 mg-325 mg-40 mg tablet cyanocobalamin (vitamin B-12) 5,000 mcg PO DAILY 07/08/23 04/20/24 5,000 mcg capsule rimegepant 75 mg disintegrating 75 mg PO ONCE 07/08/23 04/20/24 tablet (Nurtec ODT) temazepam 7.5 mg capsule (Restoril) 7.5 mg PO ONCE PRN Insomnia 07/08/23 04/20/24 zinc gluconate 50 mg tablet 50 mg PO DAILY 07/08/23 04/20/24 allopurinol 100 mg tablet 100 mg PO DAILY #90 tabs 01/26/24 04/20/24 levothyroxine 50 mcg tablet 50 mcg PO DAILY #90 tabs 02/02/24 04/20/24 losartan 50 mg tablet 50 mg PO BID 02/08/24 04/20/24 metoprolol succinate 25 mg 25 mg PO BID 02/08/24 04/20/24 tablet,extended release 24 hr atogepant 60 mg tablet (Qulipta) mg PO 03/22/24 04/20/24 terbinafine HCl 250 mg tablet mg PO 03/22/24 04/20/24 magnesium 200 mg tablet 200 mg PO QDAY 04/10/24 04/20/24 prednisone 10 mg tablet 10 mg PO QDAY #30 tabs 04/10/24 04/20/24 tramadol 50 mg tablet 50 mg PO BID PRN pain #60 tabs 04/10/24 04/20/24 albuterol sulfate 90 mcg/actuation 2 puff inhalation QID PRN 04/20/24 04/20/24 aerosol inhaler shortness of breath or wheezing #6.7 grams benzonatate 100 mg capsule 100 mg PO TID PRN cough #30 caps 04/20/24 04/20/24 prednisone 20 mg tablet 40 mg (2 x 20 mg) PO QDAY 5 days 04/20/24 04/20/24 #10 tabs escitalopram oxalate 20 mg tablet 20 mg PO QDAY #90 tabs 04/23/24 ipratropium bromide 42 mcg (0.06 intranasal 04/24/24 %) nasal spray pimecrolimus 1 % topical cream applic topical 04/24/24 vibegron 75 mg tablet (Gemtesa) mg 04/24/24 Allergies Allergies Allergy/AdvReac Type Severity Reaction Status Date / Time carvedilol Allergy Severe Unknown Verified 04/23/24 15:51 duloxetine Allergy Severe Rash Verified 04/23/24 15:51 latex Allergy Severe Unknown Verified 04/23/24 15:51 phenylpropanolamine Allergy Severe Unknown Verified 04/23/24 15:51 pseudoephedrine Allergy Severe Anaphylaxis Verified 04/23/24 15:51 codeine Allergy Intermediate Nausea Verified 04/23/24 15:51 tetracycline (Tetracycline) Allergy Intermediate Hives Verified 04/23/24 15:51 ciprofloxacin (From Cipro) AdvReac Severe due to Verified 04/23/24 15:51 achilles tendon levofloxacin (From Levaquin) AdvReac Severe due to Verified 04/23/24 15:51 achilles tendon gabapentin AdvReac Intermediate confusion Verified 04/23/24 15:51 lisinopril AdvReac Intermediate Respiratory Verified 04/23/24 15:51 PFSH Medical History Medical History (Updated 04/23/24 @ 19:39 by Vielka Pak DNP) Unspecified perforation of tympanic membrane, unspecified ear 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 Maternal grandmother Cancer Sister Cervical cancer CAD (coronary artery disease) Mother Cervical cancer Uterine cancer Cancer Dementia CAD (coronary artery disease) Social History Social History (Updated 04/10/24 @ 16:03 by Marielena Posada LPN) Smoking Status: Never smoker Number of Years Smoked: 0 How many cigarettes a day do you smoke? (20 cigarettes=1 Pk): 0 Second hand tobacco smoke exposure: Yes (years ago) Do you dip or chew tobacco?: No Do you vape?: No Patient requests smoking cessation consult: No Initiate information on smoking cessation: No Living arrangement: At home Marital Status: Living Condition: With spouse/s.o. 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/hazards (Current/Previous): Asbestos Service: No Are you following a diet prescribed by a doctor: No Are you following a special diet: No POLST Patient has POLST: No POLST Status: Full Code Review of Systems Status of ROS: 10 or more systems reviewed and unremarkable except as noted in history and below Constitutional Reports: Fatigue, Malaise and Weakness; Denies: Fever Eyes Denies: Vision loss or Eye discomfort Ears, nose, mouth, and throat Reports: Nasal congestion and Throat pain (mild); Denies: Ear pain Cardiovascular Reports: shortness of breath with exertion and Decreased exercise tolerance; Denies: Irregular heart rate Respiratory Reports: Shortness of breath Gastrointestinal Reports: Poor appetite; Denies: Abdominal pain or Abdominal distention Genitourinary Reports: Urinary frequency and Urinary urgency; Denies: Painful urination Integumentary/Breast Denies: Rash or Itching Neurological Denies: Headache Psychiatric Denies: Depression or Anxiety Endocrine Reports: Fatigue Hematologic/Lymphatic Denies: Anemia Prior Level of Functionality: independent Exam Constitutional normal general appearance pleasant, well groomed. HENMT normocephalic, hearing grossly normal bilaterally and external ears normal Eyes conjunctivae normal and no scleral icterus Neck/C-Spine visual inspection normal and trachea midline Lymph no lymphadenopathy noted Chest inspection of chest normal Respiratory breath sounds equal bilaterally and normal respiratory effort She has diffuse occasional rales, with wheeze on the right. 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 At home she has been taking Mucinex and NyQuil and had her prednisone increased from 10 mg to 40 mg via urgent care several days ago. She is hypoxic with ambulation to an O2 sat of 86% on room air. She does not have any underlying history of lung disease. She is a never smoker. She is somewhat noncompliant with her diuretic therapy which is hydrochlorothiazide 25 mg a day. Discussed with Vielka Pak, and PE in the emergency department and decision was made to admit this patient for acute hypoxic respiratory failure likely secondary to pneumonia with CHF exacerbation. (2) Pneumonia: Plan: Chest x-ray as read by the radiologist shows no acute cardiopulmonary process. I have reviewed the imaging myself and I do believe I see an infiltrate in the right middle lobe. I will treat her for community-acquired pneumonia with azithromycin x 3 days and Rocephin for 5 days. If she discharges prior to completion of her IV antibiotics I will change these to oral. (3) Congestive heart failure: Plan: She has a history of congestive heart failure. She cannot tell me what her ejection fraction is. She states she is pretty sure the right side of her heart is normal and the left side of her heart is not normal. She knows she has left ventricular hypertrophy. She is on hydrochlorothiazide 25 mg a day and she does not consistently take this. This is due to issues with urinary incontinence she only takes it when she is at home and can make it to the bathroom. On admission her BN P is 175. While this is not extremely elevated looking at her past values it has been well less than 100. I will treat her with Lasix 20 mg IV daily. And see if this does not help her pulmonary symptoms. Qualifiers: Heart failure chronicity: chronic Heart failure type: diastolic Q ualified Code(s): I50.32 - Chronic diastolic (congestive) heart failure (4) Unspecified atrial fibrillation: Plan: Atrial fibrillation. She takes Eliquis 5 mg twice daily at home. Med rec has not been completed. I will restart this once medication reconciliation is complete. I see that she is on metoprolol Succinate 25 mg at home. (5) Morbid (severe) obesity due to excess calories: Plan: Longstanding, BMI greater than 50. Review of records show no hypothyroidism, she had a TSH in March 2024 last hemoglobin A1c was in November 2023 and 5.3%. (6) Hypertension: Plan: She is on Cozaar at home. Her blood pressures here have been elevated into the 160s and 170s. We will reinstitute home medications. Qualifiers: Hypertension type: essential hypertension Qualified Code(s): I10 - Essential (primary) hypertension (7) Hyperlipidemia: Plan: Will resume home statin therapy when appropriate. Qualifiers: Hyperlipidemia type: pure hypercholesterolemia Qualified Code(s): E 78.00 - Pure hypercholesterolemia, unspecified; E78.0 - Pure hypercholesterolemia (8) Pacemaker: Plan: Presence of pacemaker noted on chest x-ray today. (9) Hypothyroid: Plan: Resume home Synthroid when appropriate. Qualifiers: Hypothyroidism type: postoperative Qualified Code(s): E89.0 - Postprocedural hypothyroidism Plan I have spent 78 minutes in the care of this patient today. This includes time [id number], review and ordering of diagnostic imaging and laboratory studies and consultation with other providers.. Monitoring the patient's signs symptoms, evaluation of medication effectiveness and patient's response to treatment. Lab Results Lab results reviewed: Yes 04/24/24 04:47 04/24/24 04:47 Other Lab Results: admission labs show WBC 13.7 Core Measures Anticipated LOS I expect patient to be DC'd or transferred within 96 hours.: Yes Issues Hospital Issues and Management Plan: Acute hypoxic respiratory failure. Will institute treatment for CHF and community-acquired pneumonia. Will then obtain oxygen desaturation studies as appropriate I think this patient will be here for less than 2 midnights and should discharged home.
[2024-04-23] MEDS: cefTRIAXone 1 GM in SODIUM CHLORIDE 0.9% MINIBAG 100 ML IV STA (20:02)
[2024-04-23] MEDS ORDERED: diphenhydrAMINE INJ 50 MG/ML VIAL IVP PRN (20:10)
[2024-04-23] MEDS ORDERED: SODIUM CHLORIDE FLUSH 0.9% 10 ML SYRINGE IVP PRN (20:32)
[2024-04-23] MEDS ORDERED: IPRATROPIUM/ALBUTEROL 3 ML NEB INH PRN (20:32)
[2024-04-23] MEDS: methylPREDNISolone SUCCINATE 40 MG/ML VIAL IVP SCH (21:41)
[2024-04-23] MEDS: guaiFENesin/CODEINE 5 ML UDC PO PRN (21:41)
[2024-04-24] MEDS: SODIUM CHLORIDE FLUSH 0.9% 10 ML SYRINGE IVP SCH (01:12)
[2024-04-24 05:23] LABS: BASOPHILS % (AUTO) 0.2 %; HCT - HEMATOCRIT 43.6 % (37.0-47.0); HGB - HEMOGLOBIN 13.7 g/dL (12.0-16.0); LYMPHOCYTES # (AUTO) 1.2 10^3/uL (1.5-3.5); LYMPHOCYTES % (AUTO) 10.2 %; MEAN CORPUSCULAR HGB CONC 31.4 g/dL (32.0-36.0); MEAN CORPUSCULAR VOLUME 95.4 fL (81.0-99.0); MEAN PLATELET VOLUME 9.4 fL (7.9-10.8); MONOCYTES # (AUTO) 0.2 10^3/uL (0.0-1.0); MONOCYTES % (AUTO) 1.6 %; NEUTROPHILS # (AUTO) 9.9 10^3/uL (1.5-6.6); PLT - PLATELET COUNT 308 10^3/uL (130-450); RED BLOOD COUNT 4.57 10^6/uL (4.20-5.40); WHITE BLOOD COUNT 11.4 x10^3/uL (4.8-10.8)
[2024-04-24 05:32] LABS: CALCIUM 10.1 mg/dL (8.5-10.3); CREATININE 0.6 mg/dL (0.6-1.3); POTASSIUM 4.3 mmol/L (3.5-4.5)
[2024-04-24] MEDS: AZITHROMYCIN INJ 500 MG in SODIUM CHLORIDE 0.9% 250 ML IV STA (07:24)
[2024-04-24] MEDS: FUROSEMIDE 20 MG/2 ML VIAL IVP SCH (08:28)
[2024-04-24] MEDS: cefTRIAXone 1 GM VIAL IVP SCH (08:29)
[2024-04-24] MEDS: METOPROLOL SUCCINATE 25 MG TABLET PO SCH (10:00)
[2024-04-24] MEDS: LOSARTAN 50 MG TABLET PO SCH (10:00)
--- NOTE | 2024-04-24 12:27 | PHARMACY PROGRESS NOTE ---
Best Possible Medication History Admit Date and Time: 04/23/241942 Home Medications Medication Instructions Recorded Confirmed Type hydrochlorothiazide 12.5 mg tablet 12.5 mg PO DAILY 11/17/18 04/24/24 History ondansetron 4 mg disintegrating 4 mg translingual Q6H PRN Nausea / 01/09/19 04/24/24 Rx tablet Vomiting #10 tabs montelukast 10 mg tablet 10 mg PO QPM 04/17/20 04/24/24 History apixaban 5 mg tablet (Eliquis) 5 mg PO BID 07/08/23 04/24/24 History ascorbic acid (vitamin C) 500 mg 500 mg PO DAILY 07/08/23 04/24/24 History tablet (Vitamin C) benfotiamine 150 mg capsule 150 mg PO DAILY 07/08/23 04/24/24 History wbysnqjhkx-guougdgcgozmn-kyttjftz 1 tab PO ONCE PRN Headache 07/08/23 04/24/24 History 50 mg-325 mg-40 mg tablet cyanocobalamin (vitamin B-12) 5,000 mcg PO DAILY 07/08/23 04/24/24 History 5,000 mcg capsule rimegepant 75 mg disintegrating 75 mg PO Q48H 07/08/23 04/24/24 History tablet (Nurtec ODT) temazepam 7.5 mg capsule (Restoril) 7.5 mg PO HS PRN Insomnia 07/08/23 04/24/24 History zinc gluconate 50 mg tablet 50 mg PO DAILY 07/08/23 04/24/24 History allopurinol 100 mg tablet 100 mg PO DAILY #90 tabs 01/26/24 04/24/24 Rx levothyroxine 50 mcg tablet 50 mcg PO DAILY #90 tabs 02/02/24 04/24/24 Rx losartan 50 mg tablet 50 mg PO BID 02/08/24 04/24/24 History metoprolol succinate 25 mg 25 mg PO BID 02/08/24 04/24/24 History tablet,extended release 24 hr atogepant 60 mg tablet (Qulipta) 60 mg PO DAILY 03/22/24 04/24/24 History terbinafine HCl 250 mg tablet 250 mg PO DAILY 03/22/24 04/24/24 History magnesium 200 mg tablet 200 mg PO QDAY 04/10/24 04/24/24 History prednisone 10 mg tablet 10 mg PO QDAY #30 tabs 04/10/24 04/24/24 Rx tramadol 50 mg tablet 50 mg PO BID PRN pain #60 tabs 04/10/24 04/24/24 Rx albuterol sulfate 90 mcg/actuation 2 puff inhalation QID PRN 04/20/24 04/24/24 Rx aerosol inhaler shortness of breath or wheezing #6.7 grams benzonatate 100 mg capsule 100 mg PO TID PRN cough #30 caps 04/20/24 04/24/24 Rx prednisone 20 mg tablet 40 mg (2 x 20 mg) PO QDAY 5 days 04/20/24 04/24/24 Rx #10 tabs escitalopram oxalate 20 mg tablet 20 mg PO QDAY #90 tabs 04/23/24 04/24/24 Rx cholecalciferol (vitamin D3) 125 5,000 unit PO DAILY 04/24/24 04/24/24 History mcg (5,000 unit) capsule ipratropium bromide 42 mcg (0.06 2 spray intranasal BID 04/24/24 04/24/24 History %) nasal spray pimecrolimus 1 % topical cream 1 applic topical DAILY PRN ud 04/24/24 04/24/24 History vibegron 75 mg tablet (Gemtesa) 75 mg PO DAILY 04/24/24 04/24/24 History Processed by: Pharmacy (Medication Reconciliation completed by [employer]) Medications reviewed in ED?: No Medication History completed: Yes Patient Interview: Completed Secondary Source(s): Insurance records (unable to confirm insurance fills for: fioracet, hydrochlorothiazide, losartan, metoprolol, or temazepam) [facility] Statement: As the person ultimately responsible for medication therapy, providers are able to order a medication from an existing home medication list in [facility] via the "Reconcile Routine" prior to Confirmation of that medication by high school learning support teacher. Such practice is discouraged except when the physician, in their clinical judgment, deems that a medical need exists for a medication without regard to previous use.
[2024-04-24 17:06] VITALS: BP 167/76; TEMP 98.1; O2SAT 93
--- NOTE | 2024-04-24 17:36 | Discharge Summary ---
"Discharge Summary Admit Date: 04/23/24 Discharge Date: 04/24/24 Discharging Provider: Grecia Ashton PA-C Primary Care Provider: Cornel Code Status: Attempt Resuscitation DIAGNOSES Discharge Diagnoses with Status of Each Condition: Acute hypoxic respiratory failure, resolved Community-acquired pneumonia, right middle lobe, treated.Recommend repeat x-ray in about 1 month Acute CHF, treated and resolved Atrial fibrillation, chronic and treated Obesity, BMI 50, chronic Hypertension, chronic and treated Hyperlipidemia chronic and treated Pacemaker in place, hr coordinator is [facility] at [facility] Hypothyroidism, chronic and treated HPI History of Present Illness: 74-year-old female who presents to the emergency department with complaints of shortness of breath. Has had trouble breathing for a few weeks and getting worse. Was seen at the walk-in clinic 3 days ago for a cough. She was given DuoNeb and prednisone. She was sent to the hospital for chest x-ray. She was not prescribed antibiotics. In any event presents to the emergency department today with the above complaints. She has hypoxia with ambulation down to 86% on room air. She states she has a history of CHF. She is not sure what her ejection fraction is. Her last echocardiogram was sometime in the last year. She sees Dr. Gonsalez at [facility]. She denies any history of COPD and asthma. She is prescribed hydrochlorothiazide but does not often take it because she struggles with urinary incontinence and has trouble making it to the bathroom when she takes it. She lives with her who is 80 years old and in pretty good health and her daughter Blanca who is an RN. In the last several weeks she has been placed on prednisone 10 mg a day by Dr. Unger who is her primary care doctor. He placed her on this for arthritis pain. Her and daughter together would be her surrogate decision makers where she unable to make her decision. When approached about CODE STATUS she states that she would like to be full code. She recognizes that when it is her time it is her time but she has many people in her life that she loves and she does not want to leave them. She also trusts that her and daughter would make the right decision for her should it come to it. CONSULTS | PROCEDURES Procedures: Chest x-ray: Right middle lobe infiltrate HOSPITAL COURSE Hospital Course: (1) Acute hypoxic respiratory failure: 74-year-old female who presents to the emergency department having been ill with upper respiratory symptoms for several weeks. At home she has been taking Mucinex and NyQuil and had her prednisone increased from 10 mg to 40 mg via urgent care several days ago. She is hypoxic with ambulation to an O2 sat of 86% on room air. She does not have any underlying history of lung disease. She is a never smoker. She is somewhat noncompliant with her diuretic therapy which is hydrochlorothiazide 25 mg a day. Was placed on the MedSurg unit. Treated with steroids and antibiotics as well as Lasix. Hypoxia improved and she passed an exercise oxygen desaturation test on the morning of hospital day 2. She completed her day of antibiotics and was discharged home in the evening of hospital day 2 (2) Pneumonia: Chest x-ray as read by the radiologist shows no acute cardiopulmonary process. I have reviewed the imaging myself and I do believe I see an infiltrate in the right middle lobe. I will treat her for community-acquired pneumonia with azithromycin x 3 days and Rocephin for 5 days. Upon discharge she was given the remainder of a course of azithromycin and Rocephin was changed to Augmentin to complete 5 days. (3) Congestive heart failure: She has a history of congestive heart failure. She cannot tell me what her ejection fraction is. She states she is pretty sure the right side of her heart is normal and the left side of her heart is not normal. She knows she has left ventricular hypertrophy. She is on hydrochlorothiazide 25 mg a day and she does not consistently take this. This is due to issues with urinary incontinence she only takes it when she is at home and can make it to the bathroom. On admission her BN P is 175. While this is not extremely elevated looking at her past values it has been well less than 100. She was given 20 mg of Lasix IV. Overall her breathing improved. She had minimal to trace pedal edema on admission. On the morning of hospital day 2 her pedal edema was nonexistent (4) Unspecified atrial fibrillation: Atrial fibrillation. She takes Eliquis 5 mg twice daily at home. Med rec has not been completed. I will restart this once medication reconciliation is complete. I see that she is on metoprolol Succinate 25 mg at home. (5) Morbid (severe) obesity due to excess calories: Longstanding, BMI greater than 50. , she had a TSH in March 2024 last hemoglobin A1c was in November 2023 and 5.3%. (6) Hypertension: She is on Cozaar at home. Her blood pressures here have been elevated into the 160s and 170s. We will reinstitute home medications. (7) Hyperlipidemia: Will resume home statin therapy On discharge home (8) Pacemaker: Presence of pacemaker noted on chest x-ray today. (9) Hypothyroid: Resume home Synthroid when on discharge home ALLERGIES Allergies Allergy/AdvReac Type Severity Reaction Status Date / Time carvedilol Allergy Severe Unknown Verified 04/23/24 15:51 duloxetine Allergy Severe Rash Verified 04/23/24 15:51 latex Allergy Severe Unknown Verified 04/23/24 15:51 phenylpropanolamine Allergy Severe Unknown Verified 04/23/24 15:51 pseudoephedrine Allergy Severe Anaphylaxis Verified 04/23/24 15:51 codeine Allergy Intermediate Nausea Verified 04/23/24 15:51 tetracycline (Tetracycline) Allergy Intermediate Hives Verified 04/23/24 15:51 ciprofloxacin (From Cipro) AdvReac Severe due to Verified 04/23/24 15:51 achilles tendon levofloxacin (From Levaquin) AdvReac Severe due to Verified 04/23/24 15:51 achilles tendon gabapentin AdvReac Intermediate confusion Verified 04/23/24 15:51 lisinopril AdvReac Intermediate Respiratory Verified 04/23/24 15:51 MEDICATIONS Ambulatory Orders Medication Instructions Recorded Confirmed hydrochlorothiazide 12.5 mg tablet 12.5 mg PO DAILY 11/17/18 04/24/24 ondansetron 4 mg disintegrating 4 mg translingual Q6H PRN Nausea / 01/09/19 04/24/24 tablet Vomiting #10 tabs montelukast 10 mg tablet 10 mg PO QPM 04/17/20 04/24/24 apixaban 5 mg tablet (Eliquis) 5 mg PO BID 07/08/23 04/24/24 ascorbic acid (vitamin C) 500 mg 500 mg PO DAILY 07/08/23 04/24/24 tablet (Vitamin C) benfotiamine 150 mg capsule 150 mg PO DAILY 07/08/23 04/24/24 [id number]-gnwgrfhhhcddt-[id number] 1 tab PO ONCE PRN Headache 07/08/23 04/24/24 50 mg-325 mg-40 mg tablet cyanocobalamin (vitamin B-12) 5,000 mcg PO DAILY 07/08/23 04/24/24 5,000 mcg capsule rimegepant 75 mg disintegrating 75 mg PO Q48H 07/08/23 04/24/24 tablet (Nurtec ODT) temazepam 7.5 mg capsule (Restoril) 7.5 mg PO HS PRN Insomnia 07/08/23 04/24/24 zinc gluconate 50 mg tablet 50 mg PO DAILY 07/08/23 04/24/24 allopurinol 100 mg tablet 100 mg PO DAILY #90 tabs 01/26/24 04/24/24 levothyroxine 50 mcg tablet 50 mcg PO DAILY #90 tabs 02/02/24 04/24/24 losartan 50 mg tablet 50 mg PO BID 02/08/24 04/24/24 metoprolol succinate 25 mg 25 mg PO BID 02/08/24 04/24/24 tablet,extended release 24 hr atogepant 60 mg tablet (Qulipta) 60 mg PO DAILY 03/22/24 04/24/24 terbinafine HCl 250 mg tablet 250 mg PO DAILY 03/22/24 04/24/24 magnesium 200 mg tablet 200 mg PO QDAY 04/10/24 04/24/24 tramadol 50 mg tablet 50 mg PO BID PRN pain #60 tabs 04/10/24 04/24/24 benzonatate 100 mg capsule 100 mg PO TID PRN cough #30 caps 04/20/24 04/24/24 prednisone 20 mg tablet 40 mg (2 x 20 mg) PO QDAY 5 days 04/20/24 04/24/24 #10 tabs escitalopram oxalate 20 mg tablet 20 mg PO QDAY #90 tabs 04/23/24 04/24/24 albuterol sulfate 90 mcg/actuation 2 puff inhalation QID PRN 04/24/24 04/24/24 aerosol inhaler shortness of breath or wheezing #6.7 grams albuterol sulfate 90 mcg/actuation 2 puff inhalation QID PRN 04/24/24 aerosol inhaler (Ventolin HFA) shortness of breath or wheezing #8.5 grams amoxicillin 875 mg-potassium 1 tab PO BID #6 tabs 04/24/24 clavulanate 125 mg tablet azithromycin 250 mg tablet 500 mg (2 x 250 mg) PO HS #1 tab 04/24/24 cholecalciferol (vitamin D3) 125 5,000 unit PO DAILY 04/24/24 04/24/24 mcg (5,000 unit) capsule codeine 10 mg-guaifenesin 100 mg/5 5 ml PO Q4H PRN Cough #120 mL 04/24/24 mL oral liquid ipratropium bromide 42 mcg (0.06 2 spray intranasal BID 04/24/24 04/24/24 %) nasal spray pimecrolimus 1 % topical cream 1 applic topical DAILY PRN ud 04/24/24 04/24/24 vibegron 75 mg tablet (Gemtesa) 75 mg PO DAILY 04/24/24 04/24/24 PHYSICAL EXAM AT DISCHARGE General Appearance: positive No acute distress and Alert Eyes Bilateral: positive Normal inspection and PERRL ENT: positive ENT inspection nml Neck: positive Nml inspection Respiratory: positive No respiratory distress, Wheezes (R, scant) and Rhonchi (very occasional) Cardiovascular: positive Regular rate & rhythm Abdomen: positive No distention Skin: positive Color nml Extremities: positive Non-tender and No pedal edema Neurologic/Psychiatric: positive Oriented x3 LABS 04/24/24 04:47 04/24/24 04:47 SEPSIS Current Stage of Sepsis: Ruled out FOLLOW UP Follow Up: Dr. Balderrama, PCP in 7 to 10 days. Repeat chest x-ray in 1 month. TIME SPENT Time Spent in Discharge (Minutes): 35 Discharge Plan Discharge Patient Disposition: 01 Home, Self Care Condition: Stable Prescriptions: New azithromycin 250 mg Tablet 500 mg PO HS Qty: 1 0RF codeine-guaifenesin 10-100 mg/5 mL Liquid 5 ml PO Q4H PRN (Reason: Cough) Qty: 120 0RF albuterol sulfate [Ventolin HFA] 90 mcg/actuation HFA aerosol inhaler 2 puff inhalation QID PRN (Reason: shortness of breath or wheezing) Qty: 8.5 0RF amoxicillin-pot clavulanate 875-125 mg tablet 1 tab PO BID Qty: 6 0RF Continued allopurinol 100 mg tablet 100 mg PO DAILY Qty: 90 3RF levothyroxine 50 mcg tablet 50 mcg PO DAILY Qty: 90 2RF escitalopram oxalate 20 mg tablet 20 mg PO QDAY Qty: 90 2RF hydrochlorothiazide 12.5 MG tablet 12.5 mg PO DAILY ondansetron 4 MG tablet,disintegrating 4 mg translingual Q6H PRN (Reason: Nausea / Vomiting) Qty: 10 0RF montelukast 10 MG tablet 10 mg PO QPM ascorbic acid (vitamin C) [Vitamin C] 500 MG tablet 500 mg PO DAILY Eliquis 5 MG tablet 5 mg PO BID benfotiamine 150 MG capsule 150 mg PO DAILY cyanocobalamin (vitamin B-12) 5,000 MCG capsule 5,000 mcg PO DAILY temazepam [Restoril] 7.5 MG capsule 7.5 mg PO HS PRN (Reason: Insomnia) zinc gluconate 50 MG tablet 50 mg PO DAILY Nurtec ODT 75 MG tablet,disintegrating 75 mg PO Q48H Rx Instructions: 1 po every other day fyhyazjaro-wavuguorcewmb-efsj 1 TAB tablet 1 tab PO ONCE PRN (Reason: Headache) pimecrolimus 1 % cream 1 applic TOPICAL DAILY PRN (Reason: ud) Patient Comments: Pt stated prn daily times 2 weeks ipratropium bromide 42 mcg (0.06 %) spray,non-aerosol 2 spray INTRANASAL BID Rx Instructions: each nostril Gemtesa 75 mg tablet 75 mg PO DAILY Patient Comments: Pt stated hasn't rec'd yet from [facility] cholecalciferol (vitamin D3) 125 mcg (5,000 unit) capsule 5,000 unit PO DAILY albuterol sulfate 90 mcg/actuation HFA aerosol inhaler 2 puff inhalation QID PRN (Reason: shortness of breath or wheezing) Qty: 6.7 0RF losartan 50 mg tablet 50 mg PO BID metoprolol succinate 25 mg tablet extended release 24 hr 25 mg PO BID benzonatate 100 mg capsule 100 mg PO TID PRN (Reason: cough) Qty: 30 0RF Patient Comments: PT stated started on Tuesday04-20-24 prednisone 20 mg tablet 40 mg PO QDAY 5 Days Qty: 10 0RF Patient Comments: Pt stated started on Tuesday04-20-24, for 5 days magnesium 200 mg tablet 200 mg PO QDAY tramadol 50 mg tablet 50 mg PO BID PRN (Reason: pain) Qty: 60 3RF terbinafine HCl 250 mg tablet 250 mg PO DAILY Qulipta 60 mg tablet 60 mg PO DAILY Discontinued prednisone 10 mg tablet 10 mg PO QDAY Qty: 30 0RF Diet: Regular Interventions: Discharge Last Done: 04/24/24 19:01 Discharge Checklist - Nursing Last Done: 04/24/24 19:01 Health Concerns: You came into the hospital because you had been sick for several weeks with a bad upper respiratory infection and you are not getting better. You have gotten to the point where you were very short of breath. When you came into the hospital your oxygen saturation was fine at rest, however, when you walked your oxygenation dropped to 86%. For this reason we put you into the hospital, treated you with antibiotics, steroids and breathing treatments. Overnight your symptoms improved somewhat. You are not all the way better but you on your way to getting better. When you got up with the respiratory therapist this morning your oxygen saturation was not dropping with activity and for this reason you are cleared to discharge home. You need to continue your recuperation at home. I am giving you a full day of steroids today as well as all of the antibiotics you need today. I have sent in Augmentin, azithromycin, and Robitussin AC to the pharmacy. I want you to continue on your prednisone 40 mg a day. Finish all of this that you were given by the walk-in clinic PA and then go back to your 10 mg a day. I want you to follow-up with Dr. Balderrama in the office in 7 to 10 days. I want you to get a repeat chest x-ray in about a month. I want to make sure that that haziness on the right side of your chest disappears as you recover from your pneumonia. If symptoms recur or get worse I want you to come back to the hospital. Care Plan Goals: Recover from your pneumonia Finish 5 days of steroids Finish 5 days of antibiotics Eat drink and rest Print Language: Slovak Patient Instructions: Pneumonia"
[2024-04-24] MEDS ORDERED: AZITHROMYCIN INJ 500 MG in SODIUM CHLORIDE 0.9% 250 ML IV SCH (18:00)
[2024-04-24] MEDS: AZITHROMYCIN 250 MG TABLET PO STA (18:44)
[2024-04-24] MEDS ORDERED: AZITHROMYCIN 250 MG TABLET PO SCH (21:00)
== END 2024-04-24 19:02 | disposition home or self-care (01) ==
LOC: ED 15:28 → MS2 15:28
PROVIDERS: ADMIT Physician Assistant Medical; ATTEND Physician Assistant Medical
DX: Z95.0 Presence of cardiac pacemaker; J18.9 Pneumonia, unspecified organism; I11.0 Hypertensive heart disease with heart failure; E66.01 Morbid (severe) obesity due to excess calories; E78.5 Hyperlipidemia, unspecified; R32 Unspecified urinary incontinence; Z79.01 Long term (current) use of anticoagulants; E03.9 Hypothyroidism, unspecified; I50.33 Acute on chronic diastolic (congestive) heart failure; Z68.43 Body mass index [BMI] 50.0-59.9, adult; T50.2X6A Underdosing of carbonic-anhydrase inhibitors, benzothiadiazides and other diuretics, initial encounter; Z91.128 Patient's intentional underdosing of medication regimen for other reason; I48.91 Unspecified atrial fibrillation; J96.01 Acute respiratory failure with hypoxia